=== PATIENT | male | born 1990 | race Caucasian/White ===

== ENCOUNTER 2022-03-06 10:31 | Outpatient (REF) | payer OTHER, SELFPAY ==
[2022-03-06 14:08] LABS: Alanine Aminotransferase 26 U/L (0-40); Albumin Level 4.9 g/dL (3.5-5.0); Alkaline Phosphatase 75 U/L (39-117); Anion Gap 14 (12-20); Aspartate Amino Transferase 21 U/L (5-37); Bilirubin Total 0.8 mg/dL (0.0-1.0); Blood Urea Nitrogen 13 mg/dL (9-16); Calcium 10.6 mg/dL (8.4-10.2); Carbon Dioxide 29 mmol/L (22-29); Chloride 100 mmol/L (96-108); Cholesterol 197 mg/dL; Estimated Glomerular Filt Rate > 60; Glucose Fasting 88 mg/dL (60-99); HDL Cholesterol 67 mg/dL; LDL Cholesterol Calculated 118 mg/dl; Potassium 4.3 mmol/L (3.3-5.1); Sodium 139 mmol/L (135-145); Total Protein 7.7 g/dL (6.5-8.0); Triglycerides 60 mg/dL
[2022-03-06 14:26] LABS: Appearance Urine Clear; Color Urine Yellow; Glucose Urine UA Negative (Negative); Leukocyte Esterase Urine Trace (Negative); Nitrite Urine Negative (Negative); UMIC TRIGGER UA YES; Urine Blood Negative (Negative); Urine Ketones Negative (Negative); Urine Protein Negative (Neg-Trace)
[2022-03-06 14:29] LABS: Bacteria Urine None Seen (None Seen); Hyaline Casts Urine 0-2 /LPF (0-2); RBC Urine 0-2 /HPF (0-2); Squamous Epithelial Cell Urine 0-2 /HPF (0-2); WBC Urine 0-5 /HPF (0-5)
[2022-03-06 14:32] LABS: TSH reflex Free T4 1.77 uIU/mL (0.32-4.0)
[2022-03-06 15:42] LABS: CT PCR NOT DETECTED (Not Detect.); NG PCR NOT DETECTED (Not Detect.)
[2022-03-07 07:16] LABS: Syphilis Screen Nonreactive (Nonreactive)
[2022-03-07 13:23] LABS: HBS Num1 9.31 mIU/mL (0-7.99); HBc Num1 0.07 S/CO (0.00-0.79); HBsAGNum1 0.27 S/CO (0.00-0.99); HIV AB/AG Nonreactive (Nonreactive); HIV Num 1 0.07 S/CO (0.00-0.99); Hepatitis B Core Antibody Nonreactive (Nonreactive); Hepatitis B Surface Antigen Negative (Negative); ~HepC Num1 0.09 S/CO (0.00-0.79); ~Hepatitis C Antibody Nonreactive (Nonreactive)
[2022-03-07 15:00] LABS: HBS Num2 7.97 mIU/mL (0-7.99); HBS Num3 7.92 mIU/mL (0-7.99); ~Hepatitis B Surface Antibody NONREACTIVE (Nonreactive)
== END 2022-03-06 10:32 | disposition home or self-care (01) ==
LOC: HO.WFDLDS 10:31
PROVIDERS: Visit Provider Family Medicine
DX: Z00.00 Encounter for general adult medical examination without abnormal findings (principal); Z11.3 Encounter for screening for infections with a predominantly sexual mode of transmission; Z11.4 Encounter for screening for human immunodeficiency virus [HIV]
CPT/HCPCS: 80053; 80061; 81001; 81003; 84443; 86704; 86706; 86780; 86803; 87340; 87389; 87491; 87591

== ENCOUNTER → 2022-06-03 11:53 | Outpatient (BNVA) | payer OTHER, SELFPAY | PROVIDERS: PCP Family Medicine; Visit Provider Physician Assistant | DX: K64.9 Unspecified hemorrhoids (principal); B36.9 Superficial mycosis, unspecified; K61.1 Rectal abscess | CPT/HCPCS: 99202 ==

== ENCOUNTER → 2022-06-13 08:55 | Outpatient (BNVA) | payer OTHER, SELFPAY | PROVIDERS: PCP Family Medicine; Referring Provider Physician Assistant; Visit Provider Surgery | DX: K60.2 Anal fissure, unspecified (principal) | CPT/HCPCS: 99202 ==

== ENCOUNTER → 2022-07-02 08:53 | Outpatient (BNVA) | payer OTHER, SELFPAY | PROVIDERS: PCP Family Medicine; Visit Provider Surgery | DX: K64.8 Other hemorrhoids (principal); K60.2 Anal fissure, unspecified | CPT/HCPCS: 99212 ==

== ENCOUNTER → 2022-07-15 09:57 | Outpatient (BNVA) | payer OTHER, SELFPAY | PROVIDERS: PCP Family Medicine; Visit Provider Physician Assistant | DX: K60.2 Anal fissure, unspecified (principal); K64.8 Other hemorrhoids | CPT/HCPCS: 99212 ==

== ENCOUNTER 2022-09-25 11:01 | Outpatient (REF) | payer OTHER, SELFPAY ==
[2022-10-03 19:19] LABS: HSV 1 IgM IFA Negative (Negative); HSV 2 IgM IFA Negative (Negative)
== END 2022-09-25 11:02 | disposition home or self-care (01) ==
LOC: HO.HMGCLDS 11:01
PROVIDERS: PCP Family Medicine; Visit Provider Physician Assistant
DX: Z20.2 Contact with and (suspected) exposure to infections with a predominantly sexual mode of transmission (principal)
CPT/HCPCS: 36415; 86695; 86696

== ENCOUNTER 2022-10-09 08:33 | Day surgery (SDC) | payer OTHER, SELFPAY ==
[2022-10-07 11:17] VITALS: BMI 25.1
--- NOTE | 2022-10-08 10:57 | HO.ANESPROP2 ---
HPI - Anesthesia Eval Consult details Narrative: 32yo M for Colonoscopy [facility] Active Problems Active Problems: All Active Problems (Updated 04/25/22 @ 11:34 by Portillo Jurado) Internal hemorrhoid (Acute) Fissure in ano (Acute) Cough (Acute) Adult general medical exam (Acute) Abscess of skin (Acute) Fungal infection of skin (Acute) Discomfort of left ear (Acute) Hemorrhoids (Acute) Anxiety (Acute) Sleep apnea (Acute) Inguinal hernia (Acute) Laboratory exam ordered as part of routine general medical examination (Acute) Past Medical History Medical History Bursitis of left shoulder Inguinal hernia Family History Family History Unknown No family history of colorectal cancer Surgical History Surgical History Status post rhinoplasty Social History Social History Household Members: Spouse and Children Household Members Other:: , 2 sons Housing: House Patient Tobacco Use Status: Never used Tobacco e-Cigarette/Vaping Use: Currently Using service: Yes Current occupational status: employed Current occupational exposures/hazards: No Cognitive needs: No Hearing needs: No Vision needs: No Meds Allergies Allergy/AdvReac Type Severity Reaction Status Date / Time No Known Allergies Allergy Verified 09/25/22 10:41 Home Medications Medication Instructions Recorded Confirmed Last Taken Type fluticasone propionate 50 1 spray intranasal DAILY 03/06/22 06/13/22 Unknown History mcg/actuation nasal spray,suspension (Flonase Allergy Relief) Exam Exam Date and Time: October 08, 2022 1057 Height,Weight and Vital Signs: Height 5 ft 10 in Weight 79.379 kg Assessment and Plan Assessment Anesthesia Assessment: Chart Reviewed
[2022-10-09 09:22] VITALS: BP 129/82; PULSE 88; RESP 15; TEMP 36.5; O2SAT 99
[2022-10-09] MEDS: Lactated Ringers 1,000 ML 100 ML IVCONT (09:34)
--- NOTE | 2022-10-09 09:34 | MHC.SHP ---
Pre-Procedural Eval Section A Date of Service: 10/09/22 Section B Chief Complaint: Anal fissure, unspecified Relevant Family History (Specify if Yes): No Relevant Social History: None Present Medications: see Short Stay Collaborative assessment Medical History: Significant History (Bursitis of left shoulder Inguinal hernia) History of Previous Operations: Relevant previous surgery/procedure and date(s) (nasal surgery) Allergies: Allergies Allergy/AdvReac Type Severity Reaction Status Date / Time No Known Allergies Allergy Verified 10/09/22 09:15 Review of Systems Sugical H&P ROS: Negative: Constitution, Cardiovascular, Respiratory, Neurological, Psychiatric, Hem-Onc, Allergic/Immunologic, Gastrointestinal, Genitourinary, Musculoskeletal, Integumentary, Endocrine and Eyes/Ears/Nose/Throat Exam Surgical H&P Exam: Normal: HEENT, Normal: Heart, Normal: Lungs, Normal: Extremities, Normal: Abdomen, Normal: Skin and Normal: Neurological Plan Diagnosis/Plan: Unchanged I have reviewed the history and physical and performed a pertinent physical examination on my patient. No changes have occurred unless specified. Time Spent With Patient Time: Total time managing care of this patient today ____ minutes.
--- NOTE | 2022-10-09 10:27 | W.PM.OPN ---
Operative Note Operative Note Date of Service: 10/09/22 Narrative: Operative Information Procedure Description: Colonoscopy Indication: hemorrhoids, rectal bleeding, abn bowel habit Anesthesia: MAC COLONOSCOPY Instrument: Olympus variable stiffness pediatric scope 190L Colonoscopy Monitoring: Vital signs and clinical assessment, continuous EKG monitoring, Pulse oximetry, Carbon Dioxide monitoring and blood pressure monitoring were done throughout the procedure. Colon withdrawal time was 22 minutes. Procedure: The patient was placed in the left lateral decubitis position and pre-procedure medications were administered. After a digital rectal examination of the ano-rectum, the video colonoscope was inserted into the rectum and advanced through the colon to the cecum/TI. The colonoscope was slowly withdrawn in a retrograde panoramic fashion and the colon mucosa was carefully examined including a retroflexed view of the rectum. Findings and interventions are described below. Procedure Difficulty: easy Findings: Terminal Ileum- mild erythema, bx taken Cecum:normal, bx taken Ascending Colon: normal, bx taken Transverse Colon -normal Descending Colon:normal Sigmoid Colon: normal Rectum: Retroflexion with medium sized internal hemorrhoids, grade I. One hemorrhoid column was more prominent and I placed one band over it. X 2 sessile polyps in the proximal rectum 5-8 mm removed with cold snare. Random rectum biopsies also taken. Anorectum - normal Colon preparation: [place] Bowel Preparation Scale Right colon; 2 Transverse colon: 2 Left colon; 2 (0 = Unprepared colon segment with mucosa not seen due to solid stool that cannot be cleared. 1 = Portion of mucosa of the colon segment seen, but other areas of the colon segment not well seen due to staining, residual stool and/or opaque liquid. 2 = Minor amount of residual staining, small fragments of stool and/or opaque liquid, but mucosa of colon segment seen well. 3 = Entire mucosa of colon segment seen well with no residual staining, small fragments of stool or opaque liquid) Impression and Post Procedure Diagnosis: polyps internal hemorrhoids Plan: High fiber diet leaflet Avoid straining at stool, epsom salts and sitz bath, anusol supps or cream Repeat Colonoscopy in 5-7 years if adenomatous polyps, otherwise colonoscopy at age 45 or earlier if clinically indicated Above findings were reviewed with the patient and relevant handouts were provided if indicated.
--- NOTE | 2022-10-09 10:38 | P.CONAN_ITS ---
[facility] Active Problems Active Problems: All Active Problems (Updated 04/25/22 @ 11:34 by Portillo Jurado) Laboratory exam ordered as part of routine general medical examination (Acute) Sleep apnea (Acute) Anxiety (Acute) Hemorrhoids (Acute) Discomfort of left ear (Acute) Fungal infection of skin (Acute) Abscess of skin (Acute) Adult general medical exam (Acute) Cough (Acute) Fissure in ano (Acute) Internal hemorrhoid (Acute) Inguinal hernia (Acute) Past Medical History Medical History Bursitis of left shoulder Inguinal hernia Family History Family History Unknown No family history of colorectal cancer Surgical History Surgical History Hx of oral surgery Hx of right inguinal hernia repair Status post rhinoplasty Social History Social History Household Members: Spouse and Children Household Members Other:: , 2 sons Housing: House Patient Tobacco Use Status: Current someday Tobacco user Tobacco use type: Smokeless Tobacco e-Cigarette/Vaping Use: Currently Using Use of substances other than those prescribed or required for medical reasons: No Are you DNR?: No Advance Directives: No Advance Directives Information Provided: Yes service: Yes Current occupational status: employed Current occupational exposures/hazards: No Cognitive needs: No Hearing needs: No Vision needs: No Meds Allergies Allergy/AdvReac Type Severity Reaction Status Date / Time No Known Allergies Allergy Verified 10/09/22 09:15 Active Medications: Current Medications Lactated Ringer's (Lr) 1,000 mls @ 100 mls/hr IVCONT .Q10H MIO Last Admin: 10/09/22 09:34 Dose: 100 mls/hr Home Medications Medication Instructions Recorded Confirmed Last Taken Type fluticasone propionate 50 1 spray intranasal DAILY 03/06/22 10/09/22 Unknown History mcg/actuation nasal spray,suspension (Flonase Allergy Relief) multivitamin 1 tab PO DAILY 10/09/22 10/09/22 Unknown History Exam Exam Date and Time: October 09, 2022 1038 Height,Weight and Vital Signs: Height 5 ft 10 in Weight 79.379 kg Last Vital Signs Temp 97.7 F 10/09/22 09:22 Pulse 88 10/09/22 09:22 Resp 15 10/09/22 09:22 BP 129/82 10/09/22 09:22 Pulse Ox 99 10/09/22 09:22 O2 Del Method Room Air 10/09/22 09:22 Airway Mallampati Class: II TM Dist: >3cm Neck ROM: Full Heart: RRR Lungs: CTA Assessment and Plan Assessment Anesthesia Assessment: Anesthesia Plan Discussed and Chart Reviewed Final Anesthetic Review NPO: Yes ASA Class: II Final Preanesthetic Review: Meds/Allgs Chart Reviewed, Consent Obtained/Reviewed and Anes Risks/Benef Reviewed Patient Risk: Low Procedure Risk: Low Anesthetic Plan Anesthetic Plan: MAC: Disposition: Standard PACU
[2022-10-09 11:00] VITALS: BP 101/59; PULSE 82; RESP 16; TEMP 36.3; O2SAT 98
[2022-10-09 11:15] VITALS: BP 118/71; PULSE 77; RESP 16; TEMP 36.6; O2SAT 100
== END 2022-10-09 11:58 | disposition home or self-care (01) ==
PROVIDERS: PCP Family Medicine; Visit Provider Internal Medicine Gastroenterology
PROC: 0DJD8ZZ Inspection of Lower Intestinal Tract, Via Natural or Artificial Opening Endoscopic (ICD-10-PCS; CPT 45378; principal; 2022-10-09 10:40)
DX: K62.5 Hemorrhage of anus and rectum (principal); R19.4 Change in bowel habit; K62.1 Rectal polyp; K64.0 First degree hemorrhoids; K60.2 Anal fissure, unspecified; F17.290 Nicotine dependence, other tobacco product, uncomplicated; Z79.51 Long term (current) use of inhaled steroids
CPT/HCPCS: 45385; 45380; 45398; 88305

== ENCOUNTER 2022-10-28 13:07 | Outpatient (AMB) | payer OTHER, SELFPAY ==
--- NOTE | 2022-10-28 13:11 | MHC.OFFVIS ---
Intake Vital Signs 10/28/22 13:12 Height 5 ft 10 in Weight 170 lb BMI 24.4 BP 116/64 Blood Pressure Location Lt brachial Position Sitting Pulse 76 Intake Visit Reasons: S/p colon-Gary Intake Note: Patient follow up for Colonoscopy results. Patient denies any GI issues. [employer] Senior [employer] Required: No Accompanied by: Self / Same As Patient Allergies No Known Allergies Allergy (Verified 10/28/22 13:11) Medication List - Last Reconciled 10/28/22 by Gloria Linares PA-C albuterol sulfate 90 mcg/actuation 2 puffs inhalation Q6H PRN fluticasone propionate 50 mcg/actuation (Flonase Allergy Relief) 1 spray intranasal DAILY hydrocortisone 2.5% (Proctozone-HC) 1 appl RI BEDTIME PRN multivitamin 1 tab PO DAILY HPI HPI Comments History of Present Illness Details A 32-year-old male follows up after recent colonoscopy with polypectomy and hemorrhoidal banding with Dr. Gary Tolerated procedure well-was very happy hemorrhoid was banded Noticed a small amount of rectal bleeding-passing of small month blood several days after procedure however nothing further, no abdominal pain no rectal pain No nausea, vomiting, hematemesis, hematochezia fever chills PFSH Medical History (Updated 10/28/22 @ 13:53 by Gloria Linares PA-C) Bursitis of left shoulder Inguinal hernia Surgical History Hx of colonoscopy Hx of oral surgery Hx of right inguinal hernia repair Status post rhinoplasty Family History Unknown No family history of colorectal cancer Social History Household Members: Spouse and Children Household Members Other:: , 2 sons Housing: House Patient Tobacco Use Status: Current someday Tobacco user Tobacco use type: Smokeless Tobacco e-Cigarette/Vaping Use: Currently Using service: Yes Current occupational status: employed Current occupational exposures/hazards: No Cognitive needs: No Hearing needs: No Vision needs: No Review of Systems Const All systems reviewed & are unremarkable except as noted in HPI and below GI Denies abdominal pain, Denies change in bowel habits and Reports other (1 episode small amount rectal bleeding days after colonoscopy) Physical Exam Vital Signs: Last Vital Signs Pulse 76 10/28/22 13:12 BP 116/64 10/28/22 13:12 BMI result Body Mass Index 24.4 Const General: cooperative, healthy appearing and comfortable Orientation/consciousness: patient oriented x3 Limitations: no limitations Neuro General: patient oriented x3 Psych Appearance: grossly normal and well kempt Mental Status: mental status grossly normal Speech and movement: Normal speech and movement present Affect: normal affect Thought process: Normal thought process present Thought content: Normal thought content present Insight: Good insight present (Psych) Judgement: Good judgement present (Psych) Results Reviewed Results Reviewed: indings: Terminal Ileum- mild erythema, bx taken Cecum:normal, bx taken Ascending Colon: normal, bx taken Transverse Colon -normal Descending Colon:normal Sigmoid Colon:? normal Rectum: Retroflexion with medium sized internal hemorrhoids, grade I. One hemorrhoid column was more prominent and I placed one band over it. X 2 sessile polyps in the proximal rectum 5-8 mm removed with cold snare. Random rectum biopsies also taken. Anorectum - normal Colon preparation: [place] Bowel Preparation Scale Right colon; 2 Transverse colon: 2 Left colon; 2 (0 = Unprepared colon segment with mucosa not seen due to solid stool that cannot be cleared. 1 = Portion of mucosa of the colon segment seen, but other areas of the colon segment not well seen due to staining, residual stool and/or opaque liquid. 2 = Minor amount of residual staining, small fragments of stool and/or opaque liquid, but mucosa of colon segment seen well. 3 = Entire mucosa of colon segment seen well with no residual staining, small fragments of stool or opaque liquid) Impression and Post Procedure Diagnosis: polyps internal hemorrhoids Plan: High fiber diet leaflet Avoid straining at stool, epsom salts and sitz bath, anusol supps or cream Repeat Colonoscopy in 5-7 years if adenomatous polyps, otherwise colonoscopy at age 45 or earlier if clinically indicated Above findings were reviewed with the patient and relevant handouts were provided if indicated. Name:Ezra Sánchez Age/Sex: 32/M Attending: Elvin Gary MD : 1990 Submitted by: Elvin Gary MD Copies to: Benoit Ruth MD MR #: [id number] ? Status: DEP SD Collected: 10/09/22 Location: [facility] Received: 10/09/22 Diagnosis A.? Terminal ileum, biopsy:? Ileal mucosa with no specific change.? B.? Colon, right, biopsy:? Colonic mucosa (2 pieces) with no specific change, and ileal mucosa (1 piece) with no specific change. C.? Colon, proximal rectal, polyps:? Hyperplastic polyps, two. D.? Colon, rectum, biopsy:? Colonic mucosa with no specific change. Assessment & Plan Assessment & Plan (1) Hemorrhoids: Comment: Banded-likely episode rectal bleeding banded hemorrhoid expelled-has had nothing for Code(s): K64.9 - Unspecified hemorrhoids Plan: Maintain high-fiber diet (2) Hyperplastic colon polyp: Code(s): K63.5 - Polyp of colon Plan: Benign polyps asymptomatic colonoscopy age 44 (3) Rectal bleeding: Comment: Likely banded hemorrhoid Code(s): K62.5 - Hemorrhage of anus and rectum Plan: Likely banded hemorrhoids Patient Instructions: Very pleasant 32-year-old male follows up after recent colonoscopy and polypectomy, with hemorrhoidal banding Reviewed procedure report and pathology He has no further GI complaints. Her recommend screening colonoscopy age 45 sooner if indicated Encouraged to call with questions or concerns Appreciate the opportunity assist in care this pleasant Gent Coding Level of Care Code Est Pt Level 3 (91618) Diagnoses Hemorrhoids K64.9 Hyperplastic colon polyp K63.5 Rectal bleeding K62.5 Time Spent (min) 20
[2022-10-28 13:12] VITALS: BP 116/64; PULSE 76; BMI 24.4
== END 2022-10-28 13:57 | disposition home or self-care (01) ==
PROVIDERS: Visit Provider Physician Assistant
DX: K64.9 Unspecified hemorrhoids (principal); K63.5 Polyp of colon; K62.5 Hemorrhage of anus and rectum
CPT/HCPCS: 99213

== ENCOUNTER → 2022-10-28 13:07 | Outpatient (BNVA) | payer OTHER, SELFPAY | PROVIDERS: Visit Provider Physician Assistant | DX: K63.5 Polyp of colon (principal); K64.9 Unspecified hemorrhoids; K62.5 Hemorrhage of anus and rectum; Z98.890 Other specified postprocedural states | CPT/HCPCS: 99212 ==

== ENCOUNTER 2023-02-11 11:13 | Outpatient (AMB) | payer OTHER, SELFPAY ==
[2023-02-11 11:22] VITALS: BP 118/66; PULSE 87; RESP 13; TEMP 36.6; O2SAT 99; BMI 23.8
--- NOTE | 2023-02-11 11:22 | A.OFFPC_ITS ---
Vital Signs 02/11/23 11:22 Height 5 ft 10 in Weight 166 lb BMI 23.8 BP 118/66 Blood Pressure Location Lt brachial Position Sitting Respiration 13 Pulse 87 Pulse Source Pulse Oximeter Temp 97.8 F Temp Source Temporal Artery Scan Pulse Oximetry (%) 99 Oxygen Delivery Method Room Air Intake Visit Reasons: Discuss Dermatology referral, cyst on back of neck Intake Note: Patient states that he believes the cyst on back of his neck was an ingrown hair that was irritated and turned into a cyst. Patient states that it fluctuates and right now it is a small but can and william get irritated again and become huge. Patient states he has has one on his love handle that had to be removed by doctors office. Patient states that he would also like to discuss sexual performance issues. Patient states that it takes a long time to get across the finish line when in a sexual act. Patient believes it his anxiety of getting a divorce. 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 Accompanied by: Self / Same As Patient Allergies No Known Allergies Allergy (Verified 02/11/23 11:47) Medication List - Last Reconciled 02/11/23 by Ozzie Bermudez CNP albuterol sulfate 90 mcg/actuation 2 puffs inhalation Q6H PRN fluticasone propionate 50 mcg/actuation (Flonase Allergy Relief) 1 spray intranasal DAILY hydrocortisone 2.5% (Proctozone-HC) 1 appl HI BEDTIME PRN multivitamin 1 tab PO DAILY Tobacco use date assessed: 02/11/23 Dental Screening Dental Screen Date: 02/11/23 Did you have a dental visit in the last 12 months?: Yes Did you have a dental problem in the last 6 months where you did not have access to dental care?: No Was dental information given to patient?: Patient has dentist HPI HPI Comments History of Present Illness Details 32-year-old male presents with complaint s of a painless cyst to the back of his neck. He notes there was an ingrown hair to the area which become irritated and transformed to a cyst. He notes that the cyst changes size, from small to large. He notes that the cyst has been present, on and off, for the past 2 years. Denies pain, redness, swelling, fever, fatigue, or weakness. 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 Lawrence Hightower, Virginia Martinez, Calin Kellogg and colleagues, with an educational ganesh from [employer]. Review of Systems Const Details: Const Denies chills, Denies fatigue, Denies fever(s), Denies headache(s) and Denies weakness ENT Denies dizziness and Denies headache(s) Card Denies chest pain, Denies lightheadedness, Denies dyspnea and Denies other (Palpitations) Resp Denies cough, Denies dyspnea, Denies wheezing and Denies other ( shortness of breath) GI Denies abdominal pain, Denies melena, Denies hematochezia, Denies change in bowel habits, Denies dyspepsia and Denies nausea Denies hematuria and Denies dysuria Musc Denies abnormal gait, Denies myalgias, Denies arthralgias, Denies numbness and Denies tingling Skin/Breast Reports as per HPI Neuro Denies abnormal gait, Denies dizziness, Denies headache(s), Denies memory loss, Denies numbness, Denies Sensory deficit (Neuro), Denies tingling and Denies weakness Psych Denies anxiety, Denies depression, Denies memory loss Endo Denies cold intolerance, Denies fatigue, Denies heat intolerance, Denies polydipsia and Denies polyuria Aller/Immun Denies wheezing Physical exam (Primary Care) Vital Signs: Last Vital Signs Temp 97.8 F 02/11/23 11:22 Pulse 87 02/11/23 11:22 Resp 13 02/11/23 11:22 BP 118/66 02/11/23 11:22 Pulse Ox 99 02/11/23 11:22 Oxygen Delivery Method Room Air 02/11/23 11:22 BMI result Body Mass Index 23.8 Tobacco/Smoking Status: Tobacco use Status Tobacco use date assessed 02/11/23 02/11/23 11:31 Patient Tobacco Use Status Current someday Tobacco 02/11/23 11:31 Tobacco use type Smokeless Tobacco 02/11/23 11:31 e-Cigarette/Vaping Use Currently Using 02/11/23 11:31 Thrive Assessment: Date of Thrive Assessment Date Thrive assessed 04/25/22 02/11/23 11:31 Const Other: General: no acute distress and well developed Nutritional Appearance: well nourished Orientation/consciousness: patient oriented x3 HENMT Head: Yes normocephalic and Yes atraumatic Eyes General: appearance normal, both eyes and all related structures Pupils: Equal, round and reactive pupils present EOM: EOMs intact bilaterally Resp Effort & Inspection: normal respiratory effort Auscultation: clear to auscultation bilaterally Cardio Rate: regular rate Rhythm: regular rhythm Heart sounds: S1 normal heart sound present, S2 normal heart sound present, no gallops, no murmurs and no rubs GI Palpation (GI): No Abdominal aortic bruit present, Soft to palpation, nontender, No hepatosplenomegaly present and No Rebound tenderness present Auscultation: normal bowel sounds General: Yes no CVA tenderness Back/Spine/Pelvis Back: no CVA tenderness Cervical Spine: cervical ROM normal and No Cervical spine tenderness Thoracic/Lumbar Spine: thoraco-lumbar ROM normal, No pain with thoraco-lumbar ROM, No thoracic spinal tenderness and No lumbar spinal tenderness Extrem General: Yes normal to inspection, No edema and No calf tenderness Skin General: warm and dry. Normal skin color. Normal skin turgor Lesions: Pea-sized, painless lesion palpated on the left side of his posterior neck. No erythema, edema, trauma/injury, or overt signs of infection noted Rashes: no rashes Trauma: no lacerations or abrasions Wounds: no wounds Nails: normal Neuro General: patient oriented x3, gait normal and no focal neuro deficit Cranial nerves: Yes Equal, round and reactive pupils present Cognition (Neuro): normal cognition Gait exam (Neuro): Normal gait present Sensory Exam: No Sensory deficit (Neuro) Psych Appearance: grossly normal Affect: normal affect Attitude: cooperative Thought process: Normal thought process present Assessment and Plan Assessment & Plan (1) Epidermoid cyst of neck: Code(s): L72.0 - Epidermal cyst Plan: Presents with complaints of a painless cyst to his neck which has been present for the past 2 years. The cyst resulted from an ingrown hair. Pea-sized, painless lesion palpated on the left side of his posterior neck. No erythema, edema, trauma/injury, or overt signs of infection noted May apply warm compresses when expressed any acute symptoms Referred to dermatology The last time he was seen by his PCP was in April 2022. Advised to follow-up for health maintenance Follow-up with new or worsening symptoms Verbalized understanding and agreed with treatment plan. Orders: Referrals Dermatology Referral L72.0 - Epidermal cyst Coding Level of Care Code Est Pt Level 3 (20556) Diagnoses Epidermoid cyst of neck L72.0
== END 2023-02-11 12:00 | disposition home or self-care (01) ==
PROVIDERS: PCP Family Medicine; Visit Provider Nurse Practitioner Family
DX: L72.0 Epidermal cyst (principal)
CPT/HCPCS: 99213

== ENCOUNTER 2023-03-20 14:59 | Outpatient (AMB) | payer OTHER, SELFPAY ==
--- NOTE | 2023-03-20 15:04 | MHC.PC.OV ---
Vital Signs 03/20/23 15:05 Height 5 ft 10 in Weight 167 lb BMI 24.0 BP 108/60 Blood Pressure Location Lt brachial Position Sitting Pulse 91 Pulse Oximetry (%) 98 Oxygen Delivery Method Room Air Intake Visit Reasons: hormone concern discussion Intake Note: Patient would like to discuss male performance issues today. Allergies No Known Allergies Allergy (Verified 03/20/23 15:06) Tobacco use date assessed: 03/20/23 HPI hormone concern discussion HPI Details 32 y/o male presents today with hormonal concerns. Pt reports concerns about performance anxiety regarding his sexual relationships. He notes he is able to achieve an erection alone but expresses concerns about difficulty doing so when with a partner. 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 Lawrence Hightower, Virginia Martinez, Calin Kellogg and colleagues, with an educational ganesh from [employer]. Review of Systems Const Denies chills, Denies fatigue, Denies fever(s), Denies headache(s) and Denies weakness ENT Denies dizziness and Denies headache(s) Card Denies chest pain, Denies lightheadedness, Denies dyspnea and Denies other (Palpitations) Resp Denies cough, Denies dyspnea, Denies wheezing and Denies other ( shortness of breath) Musc Denies numbness and Denies tingling Neuro Denies dizziness, Denies headache(s), Denies numbness, Denies tingling, Denies paresthesias and Denies weakness Psych Denies anxiety and Denies depression Endo Denies fatigue Aller/Immun Denies wheezing Physical exam (Primary Care) Vital Signs: Last Vital Signs Pulse 91 03/20/23 15:05 BP 108/60 03/20/23 15:05 Pulse Ox 98 03/20/23 15:05 Oxygen Delivery Method Room Air 03/20/23 15:05 BMI result Body Mass Index 24.0 Tobacco/Smoking Status: Tobacco use Status Tobacco use date assessed 03/20/23 03/20/23 15:08 Patient Tobacco Use Status Never used Tobacco 03/20/23 15:08 Tobacco use type Smokeless Tobacco 03/20/23 15:08 e-Cigarette/Vaping Use Currently Using 03/20/23 15:08 Thrive Assessment: Date of Thrive Assessment Date Thrive assessed 04/25/22 03/20/23 15:08 Const General: no acute distress and well developed Nutritional Appearance: well nourished Orientation/consciousness: patient oriented x3 [facility] Head: Yes normocephalic and Yes atraumatic Eyes General: appearance normal, both eyes and all related structures Pupils: Equal, round and reactive pupils present EOM: EOMs intact bilaterally Resp Effort & Inspection: normal respiratory effort Auscultation: clear to auscultation bilaterally Cardio Rate: regular rate Rhythm: regular rhythm Heart sounds: S1 normal heart sound present, S2 normal heart sound present, no gallops, no murmurs and no rubs Neuro General: patient oriented x3 and gait normal Cranial nerves: Yes Equal, round and reactive pupils present Psych Affect: normal affect Assessment and Plan Assessment & Plan (1) Difficulty attaining erection: Code(s): N52.9 - Male erectile dysfunction, unspecified Plan: Patient?is?having sexual?performance?issues?which?seem?to?be?intermittent?and?associated?with?relationships?rather?than purely?physiologic?as?he?notes?that?he?has?less?difficulty?when?he?is?by?himself. May?have?a?component?of?performance?anxiety. Will?check?labs?to?rule?out?any?organic?cause. Recommended?a?therapist Recommended?plenty?of?sleep?and?stress?reduction We?can?follow-up?on?his?lab?work.??If?there?is?nothing?revealing?in?the?labs, we?can?discuss?a?referral?to?urology?which?may?be?indicated?by?abnormal?labs?as?well. Meantime?we?can?use?tadalafil?which?he?notes?has?been?helping. Orders: Orders Comprehensive [employer]. Panel Fast Today Z00.00 - Encounter for general adult medical examination without abnormal findings TSH reflex Free T4 Today Z00.00 - Encounter for general adult medical examination without abnormal findings UA and rflx microscopic Today Z00.00 - Encounter for general adult medical examination without abnormal findings Lipid Panel Today Z00.00 - Encounter for general adult medical examination without abnormal findings Microalbumin, Random (w Creat) Today I10 - Essential (primary) hypertension Testosterone, Free/Total Today N52.9 - Male erectile dysfunction, unspecified Medications: New tadalafil administer approximately 30min before sexual activity; do not use more than 1 dose per 24hrs 20 mg PO DAILY 30 days PRN 20 tabs 2RF sexual activity Coding Level of Care Code Est Pt Level 3 (22220) Diagnoses Difficulty attaining erection N52.9
[2023-03-20 15:05] VITALS: BP 108/60; PULSE 91; O2SAT 98; BMI 24.0
== END 2023-03-20 15:45 ==
PROVIDERS: PCP Family Medicine; Visit Provider Family Medicine
DX: N52.9 Male erectile dysfunction, unspecified (principal)
CPT/HCPCS: 99213

== ENCOUNTER 2023-03-21 08:07 | Outpatient (REF) | payer OTHER, SELFPAY ==
[2023-03-21 09:59] LABS: Alanine Aminotransferase 17 U/L (0-40); Albumin Level 4.2 g/dL (3.5-5.0); Alkaline Phosphatase 57 U/L (39-117); Anion Gap 13 (12-20); Aspartate Amino Transferase 19 U/L (5-37); Bilirubin Total 0.6 mg/dL (0.0-1.0); Blood Urea Nitrogen 10 mg/dL (9-16); Calcium 9.4 mg/dL (8.4-10.2); Carbon Dioxide 25 mmol/L (22-29); Chloride 106 mmol/L (96-108); Cholesterol 160 mg/dL (<200); Estimated Glomerular Filt Rate > 60; Glucose Fasting 95 mg/dL (60-99); HDL Cholesterol 59 mg/dL (>40); LDL Cholesterol Calculated 92 mg/dL (<100); Sodium 140 mmol/L (135-145); Total Protein 6.7 g/dL (6.5-8.0); Triglycerides 46 mg/dL (<150)
[2023-03-21 10:05] LABS: TSH reflex Free T4 1.63 uIU/mL (0.32-4.0)
[2023-03-21 10:25] LABS: Appearance Urine Clear; Color Urine Yellow; Glucose Urine UA Negative (Negative); Leukocyte Esterase Urine Negative (Negative); Nitrite Urine Negative (Negative); Urine Blood Negative (Negative); Urine Ketones Negative (Negative); Urine Protein Negative (Neg-Trace)
[2023-03-21 10:45] LABS: Creatinine Urine 152.41 mg/dL; Microalbumin Urine < 5.0 mg/L
[2023-03-25 19:03] LABS: Testosterone, Free 137.2 pg/mL (35.0-155.0); Testosterone, Total 618 ng/dL (250-1100)
== END 2023-03-21 08:08 | disposition home or self-care (01) ==
LOC: HO.LAB 08:07
PROVIDERS: PCP Family Medicine; Visit Provider Family Medicine
DX: Z00.00 Encounter for general adult medical examination without abnormal findings (principal); N52.9 Male erectile dysfunction, unspecified; I10 Essential (primary) hypertension
CPT/HCPCS: 36415; 80053; 80061; 81003; 82570; 84402; 84403; 84443

== ENCOUNTER 2023-04-27 08:52 | Outpatient (AMB) | payer OTHER, SELFPAY ==
[2023-04-27 08:55] VITALS: BP 108/62; PULSE 91; RESP 13; O2SAT 98; BMI 24.4
--- NOTE | 2023-04-27 08:55 | MHC.PC.OV ---
Vital Signs 04/27/23 08:55 Height 5 ft 10 in Weight 170 lb BMI 24.4 BP 108/62 Blood Pressure Location Lt brachial Position Sitting Respiration 13 Pulse 91 Pulse Source Pulse Oximeter Pulse Oximetry (%) 98 Oxygen Delivery Method Room Air Intake Visit Reasons: Extended exam with f/u labs and health maintenance Intake Note: Patient reports he is here for his physical and he has some paperwork to be filled out for todays physical. Patient reports he has a recurrent pain in the left ear. Patient reports he has a clicking in his jaw and wonders is the two are related. Patient reports he has experienced a heartburn feeling, chest pain, and sometimes feels like he has an irregular heartbeat. 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 Labs were drawn 03/21/23. Reviewed labs with pt. Triglycerides 46. TC 160. LDL 92. HDL 59. His labs were fine. Patient reports he has a recurrent pain in the left ear. Patient reports he has a clicking in his jaw and wonders if the two are related. Patient reports he has experienced a heartburn feeling, chest pain, and sometimes feels like he has an irregular heartbeat. Pt notes pain comes and goes at least once a week. Pt notes palpitations have been ongoing for a few years. He notes he sometimes experiences it when he lays on the bed. He does note ongoing stressors. HPI Comments History of Present Illness Details Documentation assistance for Benoit Ruth MD, was provided by Portillo Jurado, Nail Expert on 04/27/2023 9:33 AM EST. I, Dr. Ruth, have read, observed, and verified documentation. 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 Lawrence Hightower, Virginia Martinez, Calin Kellogg and colleagues, with an educational ganesh from [employer]. Review of Systems Const Denies chills, Denies fatigue, Denies fever(s), Denies headache(s) and Denies weakness Eyes Denies change in vision ENT Details: L ear pain Denies dizziness, Denies headache(s), Denies hearing loss, Denies nasal congestion, Denies sinus pain, Denies sinus pressure and Denies sore throat Card Denies chest pain, Denies lightheadedness, Denies dyspnea and Denies other (palpitations) Resp Denies cough, Denies dyspnea and Denies wheezing GI Denies abdominal pain, Denies melena, Denies hematochezia, Denies change in bowel habits, Denies dyspepsia and Denies nausea Denies hematuria and Denies dysuria Musc Denies abnormal gait, Denies myalgias, Denies arthralgias, Denies numbness and Denies tingling Skin/Breast Denies rash, Denies unusual bruising and Denies wounds Neuro Denies abnormal gait, Denies dizziness, Denies headache(s), Denies memory loss, Denies numbness, Denies Sensory deficit (Neuro), Denies tingling and Denies weakness Psych Denies anxiety, Denies depression and Denies memory loss Endo Denies cold intolerance, Denies fatigue, Denies heat intolerance, Denies polydipsia and Denies polyuria Rai/Lymph Denies easy bleeding and Denies easy bruising Aller/Immun Denies wheezing Physical exam (Primary Care) Vital Signs: Last Vital Signs Pulse 91 04/27/23 08:55 Resp 13 04/27/23 08:55 BP 108/62 04/27/23 08:55 Pulse Ox 98 04/27/23 08:55 Oxygen Delivery Method Room Air 04/27/23 08:55 BMI result Body Mass Index 24.4 Tobacco/Smoking Status: Tobacco use Status Tobacco use date assessed 03/20/23 04/27/23 09:04 Patient Tobacco Use Status Never used Tobacco 04/27/23 09:04 Tobacco use type Smokeless Tobacco 04/27/23 09:04 e-Cigarette/Vaping Use Currently Using 04/27/23 09:04 Thrive Assessment: Date of Thrive Assessment Date Thrive assessed 04/25/22 04/27/23 09:04 Const General: no acute distress, well developed, alert and awake Nutritional Appearance: well nourished Orientation/consciousness: patient oriented x3 HENMT Head: Yes normocephalic and Yes atraumatic Ears: hearing grossly normal bilaterally and TM's normal bilaterally General nose exam: Normal external nose present and Normal nares present Mouth: Normal oral and palatal mucosa present and moist mucous membranes Teeth and gingiva: dentition normal Throat: Yes posterior oropharynx normal Eyes General: appearance normal, both eyes and all related structures Pupils: Equal, round and reactive pupils present and Pupil accommodation reflex normal EOM: EOMs intact bilaterally Neck Neck: Yes normal visual inspection, Yes no lymphadenopathy and Yes trachea midline Thyroid: Thyroid normal Carotids: no bruits Lymphatic: no lymphadenopathy noted Chest Chest palpation & inspection: normal inspection of the chest Resp Effort & Inspection: normal respiratory effort Auscultation: clear to auscultation bilaterally Cardio Rate: regular rate Rhythm: regular rhythm Heart sounds: S1 normal heart sound present, S2 normal heart sound present, no gallops, no murmurs and no rubs Bruits: no abdominal aortic bruits and no carotid bruits GI Palpation (GI): No Abdominal aortic bruit present, Soft to palpation, nontender, No hepatosplenomegaly present and No Rebound tenderness present Auscultation: normal bowel sounds General: Yes no CVA tenderness Back/Spine/Pelvis Back: no CVA tenderness Cervical Spine: cervical ROM normal and No Cervical spine tenderness Thoracic/Lumbar Spine: thoraco-lumbar ROM normal, No pain with thoraco-lumbar ROM, No thoracic spinal tenderness and No lumbar spinal tenderness Skin Lesions: no lesions Rashes: no rashes Trauma: no lacerations or abrasions Wounds: no wounds Nails: normal Neuro General: patient oriented x3 Cranial nerves: Yes Equal, round and reactive pupils present Cognition (Neuro): normal cognition Gait exam (Neuro): Normal gait present Motor exam (neuro): 5/5 motor strength present throughout Sensory Exam: No Sensory deficit (Neuro) Deep tendon reflexes (DTR's): Right patellar reflex intensity grade: 2+ and Left patellar reflex intensity grade: 2+ Extrem General: Yes normal to inspection and No edema Psych Appearance: grossly normal Affect: normal affect Attitude: cooperative Thought process: Normal thought process present Office Procedures EKG [id number], Complete Assessment and Plan Assessment & Plan (1) Adult general medical exam: Code(s): Z00.00 - Encounter for general adult medical examination without abnormal findings Plan: 32-year-old?male?presents?for?complete?physical?exam (2) Palpitations: Code(s): R00.2 - Palpitations Plan: Intermittent?palpitations,?particularly?while?lying?in?bed EKG?shows?normal?sinus?rhythm?with?normal?axis?and?no?hypertrophy.??Does?show?nonspecific?ST-T-wave?changes. Will?refer?patient?to?Cardiology?to?follow-up?on?palpitations (3) Difficulty attaining erection: Code(s): N52.9 - Male erectile dysfunction, unspecified Plan: Had?tried?sildenafil?and?tadalafil?which?helped. Patient?would?like?or?options?so?I?am?referring?him?to?Urology (4) Hemorrhoids: Code(s): K64.9 - Unspecified hemorrhoids Plan: He?can?follow-up?with?his?central service tech?as?recommended (5) Left ear pain: Code(s): H92.02 - Otalgia, left ear Plan: Intermittent?left?ear?pain?which?comes?and?goes?spontaneously. Has?some?TMJ Possible?trigeminal?nerve?neuralgia He?would?like?to?see?ENT - referred (6) Screening for colon cancer: Code(s): Z12.11 - Encounter for screening for malignant neoplasm of colon Plan: No?polyps He?can?follow-up?with?GI?as?recommended (7) TMJ (dislocation of temporomandibular joint): Code(s): S03.00XA - Dislocation of jaw, unspecified side, initial encounter Plan: Clicking?bilateral?TMJs left?worse?than?right Referred?to?ENT Orders: Orders AMB EKG-In Office Today R00.2 - Palpitations Referrals Ear/Nose/Throat Referral H92.02 - Otalgia, left ear, S03.00XA - Dislocation of jaw, unspecified side, initial encounter Cardiology Referral R00.2 - Palpitations Cardiology Referral R00.2 - Palpitations Urology Referral N52.9 - Male erectile dysfunction, unspecified Coding Level of Care Code Est Pt Level 3 (10846) Est Pt Prev Care 18-39y(02317) Diagnoses Adult general medical exam Z00.00 Palpitations R00.2 Difficulty attaining erection N52.9 Hemorrhoids K64.9 Left ear pain H92.02 Screening for colon cancer Z12.11 TMJ (dislocation of temporomandibular joint) S03.00XA CPT Codes EKG - CPT: 54000-[id number], Complete ([id number])
== END 2023-04-27 10:09 | disposition home or self-care (01) ==
PROVIDERS: Visit Provider Family Medicine
DX: Z00.00 Encounter for general adult medical examination without abnormal findings (principal); R00.2 Palpitations; N52.9 Male erectile dysfunction, unspecified; K64.9 Unspecified hemorrhoids; H92.02 Otalgia, left ear; Z12.11 Encounter for screening for malignant neoplasm of colon; S03.00XA Dislocation of jaw, unspecified side, initial encounter
CPT/HCPCS: 93000; 99395

== ENCOUNTER 2023-06-10 12:51 | Outpatient (AMB) | payer OTHER, SELFPAY ==
--- NOTE | 2023-06-10 13:00 | A.OFFVIS_ITS ---
Intake Intake Visit Reasons: Erectile Dysfunction Intake Note: New Patient presents for initial visit for Erectile Dysfunction Urology Medications: Tadalafil Blood thinner: None Patient stated he cut the tadalafil in half., and take only half. Vessel Manager Required: No Accompanied by: Self / Same As Patient Allergies No Known Allergies Allergy (Verified 06/10/23 19:30) Medication List - Last Reconciled 06/10/23 by ZANDER Abebe albuterol sulfate 90 mcg/actuation 2 puffs inhalation Q6H PRN fluticasone propionate 50 mcg/actuation (Flonase Allergy Relief) 1 spray intranasal DAILY PRN hydrocortisone 2.5% (Proctozone-HC) 1 appl ND BEDTIME PRN multivitamin 1 tab PO DAILY tadalafil 20 mg PO DAILY PRN 30 days HPI HPI Comments History of Present Illness Details Ezra is a very pleasant 33-year-old male patient of Dr. Ruth. He has a past medical history of bursitis of left shoulder and inguinal hernia. He presents to the office today as a new patient for erectile dysfunction. In discussion with the patient today reports following up with his PCP and discussing his intermittent issues with erectile dysfunction at which time he was started on 20 mg of tadalafil daily. He reports recently coming out of a 10 year marriage and is undergoing divorce. He reports noting no issues with erectile dysfunction while . However, prior to marriage in his younger years as a teenager he did have episodes of erectile dysfunction and feels this has made him at times anxious when needing to perform. He reports currently being in a relationship and partner does not feel there is any issues however he feels at times he does continue to experience issues maintaining erec tions while having intercourse. He does report morning erections. When asked he does report feeling Cialis has been helpful. In review of patient's chart it appears testosterone was ordered and these results were reviewed with the patient today. 04/11--testosterone 618 04/11--free testosterone 137.2 He otherwise denies any bothersome urinary issues. He denies any previous surgical history within the area and or trauma to this area. Discussed at length lifestyle modifications to assist with episodes of erectile dysfunction. In office urinalysis results reviewed with the patient today. He otherwise offers no other issues or concerns at this time. 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 Current occupational exposures/hazards: No Cognitive needs: No Hearing needs: No Vision needs: No Review of Systems Const All systems reviewed & are unremarkable except as noted in HPI and below Physical Exam Const General: cooperative, healthy appearing, comfortable, no acute distress, well developed, alert and awake Orientation/consciousness: patient oriented x3 Limitations: no limitations HEENT Head: Yes normal to inspection, Yes normocephalic and Yes atraumatic Ears: hearing grossly normal bilaterally Eyes General: appearance normal, both eyes and all related structures Neck Neck: Yes normal visual inspection and Yes trachea midline Chest Chest palpation & inspection: normal inspection of the chest Resp Effort & Inspection: normal respiratory effort and able to speak in complete sentences Cardio Rate: regular rate GI Inspection: Yes normal to inspection General: Yes no CVA tenderness Back/Spine/Pelvis Back: no CVA tenderness Skin General skin exam: no rashes or lesions noted Neuro General: patient oriented x3 Extrem General: Yes normal to inspection Psych Appearance: grossly normal and well kempt Mental Status: mental status grossly normal Speech and movement: Normal speech and movement present and Clear speech present Affect: normal affect Attitude: cooperative Thought process: Normal thought process present Thought content: Normal thought content present Insight: Fair insight present (Psych) Judgement: Fair judgement present (Psych) Results AMB Urinalysis, Automated UA Leukoctes 15 Will/uL [facility] on 06/10/23 13:14 UA Nitrite Negative Last Edit by [facility] on 06/10/23 13: 14 UA Urobilinogen 0.2 mg/dL Last Edit by [facility] on 4 13:14 UA Protein 15 mg/dL Last Edit by [facility] on 06/10/23 13:1 4 UA pH 6.0 Last Edit by [facility] on 06/10/23 13:14 UA Blood 0 Alex/uL Last Edit by [facility] on 06/10/23 13:14 UA Specific [place] 1.025 Last Edit by [facility] on 13:14 UA Ketone Positive Last Edit [facility] on 06/10/23 13:1 4 40mg/dl [facility] 06/10/23 13:14 UA Bilirubin 0 mg/dL Last Edit by [facility] on 06/10/23 13: 14 UA Glucose 0 mg/dL Last Edit by [facility] on 06/10/23 13:14 Results Reviewed Results Reviewed: Laboratory Last Values Urine pH (Auto) 6.0 06/10/23 13:04 Specific [place] (Auto) 1.025 06/10/23 13:04 Urine Protein (Auto) 15 mg/dL 06/10/23 13:04 Glucose (UA)(Auto) 0 mg/dL 06/10/23 13:04 Urine Ketones (Auto) Positive 06/10/23 13:04 Urine Blood (Auto) 0 Alex/uL 06/10/23 13:04 Urine Nitrite (Auto) Negative 06/10/23 13:04 Urine Bilirubin (Auto) 0 mg/dL 06/10/23 13:04 Urine Urobilinogen (Auto) 0.2 mg/dL 06/10/23 13:04 Leukocyte Esterase (Auto) 15 Will/uL 06/10/23 13:04 Assessment & Plan Assessment & Plan (1) Erectile dysfunction: Code(s): N52.9 - Male erectile dysfunction, unspecified Plan In office urinalysis results reviewed with the patient today; as noted above. Discussed at length potential causes for erectile dysfunction. Discussed lifestyle modifications to assist with erectile dysfunction. Discussed utilizing Cialis as needed verses daily. Also discussed using 5 mg daily with 10 on demand verses 20 daily. He denies any bothersome urinary issues or concerns. He is happy with current voiding parameters. Will obtain LH, SHBG, prolactin, FSH, and estradiol for further assessment evaluation. Follow-up in 1-3 months with labs to be completed prior; or sooner with any issues, concerns, and or questions. Orders: Orders Lutenizing Hormone Today N52.9 - Male erectile dysfunction, unspecified Sex Hormone Binding Globulin Today N52.9 - Male erectile dysfunction, unspecified AMB Urinalysis Automated Today R33.9 - Retention of urine, unspecified Prolactin Today N52.9 - Male erectile dysfunction, unspecified Follicle Stimulating Hormone Today N52.9 - Male erectile dysfunction, unspecified Estradiol Ultra Sensitive Today E29.1 - Testicular hypofunction Medications: New tadalafil (Cialis) [id number] [facility] [id number] Member [id number] 5 mg PO DAILY 90 days 90 tabs 2RF Changed From tadalafil administer approximately 30min before sexual activity; do not use more than 1 dose per 24hrs 20 mg PO DAILY 30 days PRN 20 tabs 2RF sexual activity To tadalafil administer approximately 30min before sexual activity; do not use more than 1 dose per 24hrs 10 mg (1/2 x 20 mg) PO DAILY 30 days PRN 20 tabs 2RF sexual activity Patient Instructions: The patient had an opportunity to ask questions regarding the treatment plan. All questions were answered. Physical exam, labs, and imaging were discussed and reviewed in detail. As well as risks, benefits, and discussion of treatment choices. No major barriers to understanding were identified. The patient expressed understanding and agreement with the above treatment plan. The patient was made aware they should contact our office by phone for worsening of their current condition, the appearance of new symptoms, or with any questions or concerns. Compliance is encouraged with any medications and follow up testing that is ordered. It is a privilege to be allowed the opportunity to participate in? your urological care.? Again, if you have any questions or concerns If you have any questions or concerns please do not hesitate to contact me. The office is [phone]. This note is constructed using voice recognition software. While every effort has been made to ensure accuracy network security analyst errors may have been included. Yours sincerely, ZANDER Abebe Coding Level of Care Code New Pt Level 4 (46558) Diagnoses Erectile dysfunction N52.9
== END 2023-06-10 13:37 | disposition home or self-care (01) ==
PROVIDERS: PCP Family Medicine; Visit Provider Nurse Practitioner Family
DX: N52.9 Male erectile dysfunction, unspecified (principal); R33.9 Retention of urine, unspecified
CPT/HCPCS: 99204

== ENCOUNTER → 2023-06-10 12:51 | Outpatient (BNVA) | payer OTHER, SELFPAY | PROVIDERS: PCP Family Medicine; Visit Provider Nurse Practitioner Family | DX: N52.9 Male erectile dysfunction, unspecified (principal) | CPT/HCPCS: 81003; 99202 ==

== ENCOUNTER 2023-06-29 09:24 | Outpatient (AMB) | payer OTHER, SELFPAY ==
[2023-06-29 10:03] VITALS: BP 119/62; PULSE 73; O2SAT 99; BMI 23.9
--- NOTE | 2023-06-29 10:03 | MHC.PC.OV ---
Vital Signs 06/29/23 10:03 Height 5 ft 10 in Weight 166 lb 6 oz BMI 23.9 BP 119/62 Blood Pressure Location Lt brachial Position Sitting Pulse 73 Pulse Source Pulse Oximeter Pulse Oximetry (%) 99 Oxygen Delivery Method Room Air Intake Visit Reasons: f/u chronic conditions Intake Note: Patient is here as a follow up on Tadalafil, and would like a refill on that, and would like a referral for a therapist. Allergies No Known Allergies Allergy (Verified 06/29/23 10:07) Medication List - Last Reconciled 06/29/23 by Benoit Ruth MD albuterol sulfate 90 mcg/actuation 2 puffs inhalation Q6H PRN fluticasone propionate 50 mcg/actuation (Flonase Allergy Relief) 1 spray intranasal DAILY PRN hydrocortisone 2.5% (Proctozone-HC) 1 appl [place] BEDTIME PRN multivitamin 1 tab PO DAILY tadalafil (Cialis) 5 mg PO DAILY 90 days tadalafil 10 mg (1/2 x 20 mg) PO DAILY PRN 30 days Tobacco use date assessed: 06/29/23 HPI f/u chronic conditions HPI Details 33 y/o male presents to f/u chronic conditions. Pt is requesting a referral to a therapist. He reports he had been seeing a counselor in the but the program had been suspended. Pt reports he is currently undergoing a divorce. Pt reports ongoing issues with palpitations but notes this has felt generally the same. 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 Lawrence Hightower, Virginia Martinez, Calin Kellogg and colleagues, with an educational ganesh from [employer]. Review of Systems Const Denies chills, Denies fatigue, Denies fever(s), Denies headache(s) and Denies weakness ENT Denies dizziness and Denies headache(s) Card Denies dyspnea Resp Denies cough, Denies dyspnea, Denies wheezing and Denies other (shortness of breath) Musc Denies numbness and Denies tingling Neuro Denies dizziness, Denies headache(s), Denies numbness, Denies tingling and Denies weakness Psych Reports anxiety and Reports depression Endo Denies fatigue Aller/Immun Denies wheezing Physical exam (Primary Care) Vital Signs: Last Vital Signs Pulse 73 06/29/23 10:03 BP 119/62 06/29/23 10:03 Pulse Ox 99 06/29/23 10:03 Oxygen Delivery Method Room Air 06/29/23 10:03 BMI result Body Mass Index 23.9 Tobacco/Smoking Status: Tobacco use Status Tobacco use date assessed 06/29/23 06/29/23 10:08 Patient Tobacco Use Status Never used Tobacco 06/29/23 10:04 Tobacco use type Smokeless Tobacco 06/29/23 10:04 e-Cigarette/Vaping Use Currently Using 06/29/23 10:04 Thrive Assessment: Date of Thrive Assessment Date Thrive assessed 04/25/22 06/29/23 10:04 Const General: well developed; No acute distress Nutritional Appearance: well nourished Orientation/consciousness: patient oriented x3 HENMT Head: Yes normocephalic and Yes atraumatic Eyes General: appearance normal, both eyes and all related structures Pupils: Equal, round and reactive pupils present EOM: EOMs intact bilaterally Resp Effort & Inspection: normal respiratory effort Auscultation: clear to auscultation bilaterally Cardio Rate: regular rate Rhythm: regular rhythm Heart sounds: S1 normal heart sound present, S2 normal heart sound present, no gallops, no murmurs and no rubs Neuro General: patient oriented x3 and gait normal Cranial nerves: Yes Equal, round and reactive pupils present Psych Affect: normal affect Assessment and Plan Assessment & Plan (1) Anxiety with depression: Code(s): F41.8 - Other specified anxiety disorders Plan: Will?refer?patient?to?the?nurse?navigator?to?connect?him?with?a?therapist. Denies?any?SI/HI We?discussed?medications-he?has?tried?Lexapro?in?the?past?which?helps?slightly?but?had?side?effects?he?did?not?prefer?and?does?not?want?to?start?again?currently. I?let?him?know?that?if?he?changes?mind?he?can?let?know?at?any?time.??Also?that?there?are?other?medications?we?could?try. (2) Erectile dysfunction: Code(s): N52.9 - Male erectile dysfunction, unspecified Plan: Has?seen?and?is?followed?by?Urology. Will?refill?his?medication (3) Palpitations: Code(s): R00.2 - Palpitations Plan: Has?appointment?with?cardiology Medications: Refilled tadalafil (Cialis) [id number] [facility] [id number] Member [id number] 5 mg PO DAILY 90 tabs 2RF 90 days tadalafil administer approximately 30min before sexual activity; do not use more than 1 dose per 24hrs 10 mg (1/2 x 20 mg) PO DAILY PRN 20 tabs 2RF sexual activity 30 days Coding Level of Care Code Est Pt Level 4 (74197) Diagnoses Anxiety with depression F41.8 Erectile dysfunction N52.9 Palpitations R00.2
== END 2023-06-29 10:36 | disposition home or self-care (01) ==
PROVIDERS: PCP Family Medicine; Visit Provider Family Medicine
DX: F41.8 Other specified anxiety disorders (principal); N52.9 Male erectile dysfunction, unspecified; R00.2 Palpitations
CPT/HCPCS: 99214

== ENCOUNTER 2023-07-21 08:14 | Outpatient (REF) | payer OTHER, SELFPAY ==
[2023-07-22 19:13] LABS: Follicle Stimulating Hormone 14.2 mIU/mL (1.4-12.8); Lutenizing Hormone 6.3 mIU/mL (1.5-9.3); Prolactin 6.7 ng/mL (2.0-18.0); Sex Hormone Binding Globulin 27 nmol/L (10-50)
[2023-07-27 03:13] LABS: Estradiol Ultra Sensitive 19 pg/mL (< OR = 29)
== END 2023-07-21 08:15 | disposition home or self-care (01) ==
LOC: HO.HMGCLDS 08:14
PROVIDERS: PCP Family Medicine; Visit Provider Nurse Practitioner Family
DX: N52.9 Male erectile dysfunction, unspecified (principal); E29.1 Testicular hypofunction
CPT/HCPCS: 36415; 82670; 83001; 83002; 84146; 84270

== ENCOUNTER 2023-08-04 09:40 | Outpatient (AMB) | payer OTHER, SELFPAY ==
--- NOTE | 2023-08-04 10:01 | A.OFFVIS_ITS ---
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 Required: No Accompanied by: Self / Same As Patient Allergies No Known Allergies Allergy (Verified 08/04/23 10:51) Medication List - Last Reconciled 08/04/23 by RADHA AbebeP- albuterol sulfate 90 mcg/actuation 2 puffs inhalation Q6H PRN fluticasone propionate 50 mcg/actuation (Flonase Allergy Relief) 1 spray intranasal DAILY PRN hydrocortisone 2.5% (Proctozone-HC) 1 appl [place] BEDTIME PRN multivitamin 1 tab PO DAILY tadalafil (Cialis) 5 mg PO DAILY 90 days tadalafil 10 mg (1/2 x 20 mg) PO DAILY PRN 30 days HPI HPI Comments History of Present Illness Details Ezra is a very pleasant 33-year-old male patient of Dr. Ruth. He has a past medical history of bursitis of left shoulder and inguinal hernia. He presents to the office today for follow-up. Of note, patient was seen as a new patient for erectile dysfunction approximately 2 months ago at which time labs were ordered for further assessment evaluation and prescription was provided for on demand Cialis. Recent labs reviewed with the patient today as noted and trended below. 04/11--testosterone 618, free testostero ne 137.2 08/11--estradiol 19, FSH 14.2, LH 6.3, pr olactin 6.7, SHBG 27 In discussion with the patient today reports feeling since his last office visit here he has had significant improvement in his erections as he has been more communicative with his partner and feels this has been helpful. He has recently come out of a 10 year marriage and is undergoing a divorce. He reports no issues with erectile dysfunction while . However, prior to marriage in his younger years as a teenager he did have episodes of erectile dysfunction and feels this has made him at times anxious when needing to perform. He reports currently being in a relationship and partner does not feel there is any issues however he feels at times he does continue to experience issues maintaining erections while having intercourse. He does report morning erections. When asked he does report feeling Cialis PRN has been helpful. He does discuss his pa rtner to be expiereincing issues with yeast infections over the last few months. He reports she is following up with her TECHNICAL WRITING LEAD/MGR regarding this issues. Discussed proper care/hygiene of area. Office urinalysis results reviewed with the patient today. He otherwise offers no other issues or concerns at this time. 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 Current occupational exposures/hazards: No Cognitive needs: No Hearing needs: No Vision needs: No Review of Systems Const All systems reviewed & are unremarkable except as noted in HPI and below Physical Exam Const General: cooperative, healthy appearing, comfortable, no acute distress, well developed, alert and awake Orientation/consciousness: patient oriented x3 Limitations: no limitations HEENT Head: Yes normal to inspection, Yes normocephalic and Yes atraumatic Ears: hearing grossly normal bilaterally Eyes General: appearance normal, both eyes and all related structures Neck Neck: Yes normal visual inspection and Yes trachea midline Chest Chest palpation & inspection: normal inspection of the chest Resp Effort & Inspection: normal respiratory effort and able to speak in complete sentences Cardio Rate: regular rate GI Inspection: Yes normal to inspection General: Yes no CVA tenderness Back/Spine/Pelvis Back: no CVA tenderness Skin General skin exam: no rashes or lesions noted Neuro General: patient oriented x3 Extrem General: Yes normal to inspection Psych Appearance: grossly normal and well kempt Mental Status: mental status grossly normal Speech and movement: Normal speech and movement present and Clear speech present Affect: normal affect Attitude: cooperative Thought process: Normal thought process present Thought content: Normal thought content present Insight: Fair insight present (Psych) Judgement: Fair judgement present (Psych) Results AMB Urinalysis, Automated UA Leukoctes 15 Will/uL Last Edit by Brandyce Ellyn on 08/04/23 10:08 UA Nitrite Negative Last Edit by Brandyce Brediane on 08/04/23 10:08 UA Urobilinogen 0.2 mg/dL Last Edit by Brandyce Brediane on 08/04/23 10:08 UA Protein 0 mg/dL Last Edit by Brandyce SleepOutdiane on 08/04/23 10:08 UA pH 6.0 Last Edit by Brandyce Bress on 08/04/23 10:08 UA Blood 0 Alex/uL Last Edit by [place] Televisionyce Bress on 08/04/23 10:08 UA Specific [place] 1.005 Last Edit by [place] [employer]ce SleepOutdiane on 08/04/23 10:08 UA Ketone Negative Last Edit by Brandyce SleepOutdiane on 08/04/23 10:08 UA Bilirubin 0 mg/dL Last Edit by [employer]yce SleepOutdiane on 08/04/23 10:08 UA Glucose 0 mg/dL Last Edit by [place] Televisionycbecky SleepOutdiane on 08/04/23 10:08 Results Reviewed Results Reviewed: Laboratory Last Values Urine pH (Auto) 6.0 08/04/23 10:07 Specific [place] (Auto) 1.005 08/04/23 10:07 Urine Protein (Auto) 0 mg/dL 08/04/23 10:07 Glucose (UA)(Auto) 0 mg/dL 08/04/23 10:07 Urine Ketones (Auto) Negative 08/04/23 10:07 Urine Blood (Auto) 0 Alex/uL 08/04/23 10:07 Urine Nitrite (Auto) Negative 08/04/23 10:07 Urine Bilirubin (Auto) 0 mg/dL 08/04/23 10:07 Urine Urobilinogen (Auto) 0.2 mg/dL 08/04/23 10:07 Leukocyte Esterase (Auto) 15 Will/uL 08/04/23 10:07 Assessment & Plan Assessment & Plan (1) Erectile dysfunction: Code(s): N52.9 - Male erectile dysfunction, unspecified Plan In office urinalysis results reviewed with the patient today; as noted above. Recent labs reviewed with the patient today as noted above. Discussed potential causes for erectile dysfunction. Discussed lifestyle modifications to assist with erectile dysfunction. Continue p.r.n. 10 mg of Cialis He denies any bothersome urinary issues or concerns. He is happy with current voiding parameters. Discussed proper care and hygiene of area. Follow-up in 3 months; or sooner with any issues, concerns, and or questions. Orders: Orders AMB Urinalysis Automated Today Z13.9 - Encounter for screening, unspecified Patient Instructions: The patient had an opportunity to ask questions regarding the treatment plan. All questions were answered. Physical exam, labs, and imaging were discussed and reviewed in detail. As well as risks, benefits, and discussion of treatment choices. No major barriers to understanding were identified. The patient expressed understanding and agreement with the above treatment plan. The patient was made aware they should contact our office by phone for worsening of their current condition, the appearance of new symptoms, or with any questions or concerns. Compliance is encouraged with any medications and follow up testing that is ordered. It is a privilege to be allowed the opportunity to participate in? your urological care.? Again, if you have any questions or concerns If you have any questions or concerns please do not hesitate to contact me. The office is [phone]. This note is constructed using voice recognition software. While every effort has been made to ensure accuracy yard coupler errors may have been included. Yours sincerely, ZANDER Abebe Coding Level of Care Code Est Pt Level 3 (81486) Diagnoses Erectile dysfunction N52.9
== END 2023-08-04 10:25 | disposition home or self-care (01) ==
PROVIDERS: PCP Family Medicine; Referring Provider Family Medicine; Visit Provider Nurse Practitioner Family
DX: N52.9 Male erectile dysfunction, unspecified (principal); Z13.9 Encounter for screening, unspecified
CPT/HCPCS: 99213

== ENCOUNTER → 2023-08-04 09:40 | Outpatient (BNVA) | payer OTHER, SELFPAY | PROVIDERS: PCP Family Medicine; Visit Provider Nurse Practitioner Family | DX: N52.9 Male erectile dysfunction, unspecified (principal) | CPT/HCPCS: 81003; 99212 ==

== ENCOUNTER 2023-08-07 10:53 | Outpatient (AMB) | payer OTHER, SELFPAY ==
[2023-08-07 10:59] VITALS: BP 110/70; PULSE 80; BMI 25.0
--- NOTE | 2023-08-07 10:59 | MHC.OFFVIS ---
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: No Accompanied by: Self / Same As Patient Allergies No Known Allergies Allergy (Verified 08/04/23 10:51) Medication List - Last Reconciled 08/07/23 by Zay Hernandez MD albuterol sulfate 90 mcg/actuation 2 puffs inhalation Q6H PRN fluticasone propionate 50 mcg/actuation (Flonase Allergy Relief) 1 spray intranasal DAILY PRN hydrocortisone 2.5% (Proctozone-HC) 1 appl [place] BEDTIME PRN multivitamin 1 tab PO DAILY tadalafil (Cialis) 5 mg PO DAILY 90 days tadalafil 10 mg (1/2 x 20 mg) PO DAILY PRN 30 days HPI Comments Details: Thank you for referring Ezra in cardiology consultation today for symptoms of palpitations. 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 Patient says over the last 2 years he has been having intermittent symptoms of palpitations. He describes his palpitations as skipped heartbeats and sometimes fluttering and symptoms of strong heartbeat. Patient that the symptoms are mostly happening when he is resting and/or when he is trying to lay on his left side. He then has to change position to the right sudden symptoms improved. Symptoms are transient. He has tried to figure out any correlation but does not think that there is any correlation to increased personal stress. Also he drinks 1 cup of coffee every day. No significant alcohol use and there is no correlation with his symptoms. Also complains of intermittent episode of chest tightness under stressful situations. Denies any exertional chest discomfort. He said he remains very active. He denies any shortness of breath, orthopnea, PND, lightheadedness, syncope. 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 Current occupational exposures/hazards: No Cognitive needs: No Hearing needs: No Vision needs: No Review of Systems Const Denies chills, Denies fatigue, Denies fever(s), Denies frequent falls, Denies weakness, Denies weight gain and Denies weight loss ENT Denies dizziness Card Denies chest pain, Denies leg edema, Denies lightheadedness, Denies palpitations, Denies dyspnea, Denies dyspnea on exertion and Denies orthopnea Resp Denies cough, Denies dyspnea and Denies dyspnea on exertion GI Denies bloating and Denies change in bowel habits Musc Denies muscle weakness, Denies numbness and Denies tingling Neuro Denies dizziness, Denies frequent falls, Denies numbness, Denies tingling and Denies weakness Endo Denies fatigue and Denies palpitations Physical Exam Vital Signs: Last Vital Signs Pulse 80 08/07/23 10:59 BP 110/70 08/07/23 10:59 BMI result Body Mass Index 25.0 Const General: cooperative, comfortable, no acute distress, well developed, alert, awake and Physically active Nutritional Appearance: average body habitus and well nourished Orientation/consciousness: patient oriented x3 Limitations: no limitations HEENT Head: Yes normocephalic and Yes atraumatic Neck Neck: Yes trachea midline, Yes supple and Yes no JVD Resp Effort & Inspection: normal respiratory effort Auscultation: clear to auscultation bilaterally Cardio Jugular venous distension: no JVD Palpation: normal PMI Rate: regular rate Rhythm: regular rhythm Heart sounds: S1 normal heart sound present, S2 normal heart sound present, no click, no gallops, no murmurs and no rubs GI Auscultation: normal bowel sounds Skin General skin exam: no rashes or lesions noted Neuro General: patient oriented x3 and no focal motor deficits Extrem General: Yes no clubbing, cyanosis or edema Psych Appearance: grossly normal Office Procedures EKG Details: EKG shows normal sinus rhythm with normal EKG [id number], Complete Assessment & Plan Assessment & Plan (1) Palpitations: Code(s): R00.2 - Palpitations Category: Medical Plan: Palpitations which are suggestive extra systoles either PACs or PVCs. These are bothersome to him but not life-limiting at this point time although the diagnose is not clear. Would suggest him to have a Holter monitor for 7 days to assess for the arrhythmias as well as frequency of the arrhythmias. Further treatment based on the findings. Overall benign nature of isolated PACs and PVCs in the setting of normal structure of the heart was discussed with him. Avoidance of stimulants as well as stress mitigation strategies were discussed. Will suggest an echocardiogram to evaluate for cardiac structure and function as well as a stress test see below. If these tests are negative and he has infrequent extra systoles no pharmacotherapy is recommended. This was discussed with him and he is agreeable. (2) Atypical chest pain: Code(s): R07.89 - Other chest pain Category: Medical Plan: Atypical chest pain intermittently. Would suggest a treadmill stress test to evaluate for any evidence of myocardial ischemia although less likely. Possible this could be stress-induced chest tightness. At this point time no pharmacotherapy is recommended. Further treatment based on the finding of the stress test. Will follow up in the clinic after above-mentioned test. Thank you for allowing me to partake in his care Orders: Orders CA stress test Today R07.89 - Other chest pain CA echo transthoracic complete Today R00.2 - Palpitations ECG 7 day holter monitor Today R00.2 - Palpitations
== END 2023-08-07 11:30 | disposition home or self-care (01) ==
PROVIDERS: PCP Family Medicine; Visit Provider Internal Medicine Cardiovascular Disease
DX: R00.2 Palpitations (principal); R07.89 Other chest pain
CPT/HCPCS: 93010; 99204

== ENCOUNTER → 2023-08-07 10:53 | Outpatient (BNVA) | payer OTHER, SELFPAY | PROVIDERS: PCP Family Medicine; Visit Provider Internal Medicine Cardiovascular Disease | DX: R00.2 Palpitations (principal); R07.89 Other chest pain | CPT/HCPCS: 93005; 99202 ==

== ENCOUNTER → 2023-09-01 07:49 | Outpatient (REF) | payer OTHER, SELFPAY ==
--- NOTE | 2023-09-01 07:57 | CA_ITS ---
Transthoracic Echocardiogram Patient (Last, First, Middle): Ezra Kenny, Gender: Male Date of : 1990 Age: 33 Procedure Date: 09/01/2023 Procedure Type: Transthoracic Echocardiogram Location: OP Height: 177.8 cm Weight: 79.38 kg BSA: 1.97 m2 Heart Rate: bpm BP: 130 / 70 mmHg Artillery Specialist: TO Referring MD: Zay Hernandez MD Air Route Controller: Zay Hernandez MD Symptoms: R00.2 - Palpitations Study Quality: Fair ECG Rhythm: Sinus Conclusions: - Normal study Findings Left Ventricle Normal left ventricular size, thickness, and systolic function. The visually estimated ejection fraction is between 55-60%. Diastolic function is normal for age. Peak GLS is -19.1%, within normal limits. Right Ventricle Normal right ventricular cavity size and systolic function. Atria Both atria are normal in size. There is no evidence of interatrial shunt. Aortic Valve Normal aortic valve structure and function. There is no aortic valve stenosis. There is no aortic valve regurgitation. Mitral Valve There is mild anterior mitral leaflet thickening. There is no mitral valve regurgitation. There is no mitral valve stenosis. Pulmonic Valve The pulmonic valve is normal. There is trace pulmonic valve regurgitation. Tricuspid Valve Normal tricuspid valve structure. Tricuspid regurgitation envelope is inadequate for calculation of right ventricular systolic pressure. Normal right atrial pressure. Great Vessels All visible segments of the aorta are normal in size. The visualized portions of the pulmonary artery and branches are normal. Venous The inferior vena cava is normal in size and collapses greater than 50% with inspiration. Pericardium/Pleural There is no evidence of pericardial effusion. Prior Study Comparison No prior study available for comparison. Measurements 2D Linear Measurements IVSd: 0.95 0.6-0.9/0.6-1.0 cm LVIDd: 5.05 3.9-5.3/4.2-5.9 cm LVIDd Index: 2.56 2.4-3.2/2.2-3.1 cm/m2 LVIDs: 3.38 2.0-3.6 cm LVPWd: 0.73 0.7-1.1 cm LA Diam: 3.00 2.7-3.8/3.0-4.0 cm LAIDs Index: 1.52 1.5-2.3 cm/m2 LV Mass: 183.64 67-162/88-224 g LV Mass Index: 93.22 43-95/49-115 g/m2 LVOT Diam: 2.30 3.0+(-)1.3 cm 2D Systolic Function EF 4C: 55.10 >55% EF 2C: 56.30 >55% EF BiP: 55.60 >55% Mitral Valve MV Pk E: 0.64 MV PK A: 0.51 MV Decel Time: 128.00 E/A: 1.30 E'Lateral: 12.70 E'Medial: 9.79 E/E' Med: 6.60 E/E' Lat: 5.10 PHT: 37.00 MVA PHT: 5.95 Decel [place]: 5.03 Aortic Valve AoV Pk Shahab: 1.09 AoV Mn Shahab: 0.79 AoV VTI: 0.21 AoV Pk Grad: 5.00 Aov Mn Grad: 3.00 BRIGITTE Cont.VTI: 3.49 LVOT LVOT Pk Shahab: 0.97 LVOT Mn Shahab: 0.61 LVOT VTI: 0.18 LVOT Pk Grad: 4.00 LVOT Mn Grad: 2.00 LVOT Diam: 2.30 LVOT Area: 4.15 Diastolic Function MV Pk E: 0.64 MV Pk A: 0.51 E/A: 1.30 E'Medial: 9.79 E/E' Med: 6.60 E' Laterial: 12.70 E/E' Lat: 5.10 Right Ventricle TAPSE (mm): 18.30 TVS' Shahab: 11.50 Tricuspid Valve RA Press: 3.00 Great Vessels Aorta Sinus of Valsalva: 3.53 2.0-3.5 cm Ao Asc: 3.10 2.1-3.4 cm Updated in Other Vendor System with Status of Final Zay Hernandez MD electronically signed on 09/02/2023 11:20:00 AM with status of Final
--- NOTE | 2023-09-01 07:57 | CA_ITS ---
Acquisition Time: 2023-09-01 09:06:18 Total Exercise Time: 00:09:50 Test Indications: ATYPICAL CHEST PAIN Medications: NONE Protocol: ERIN Max HR: 160 BPM 86% of Pred: 186 BPM Max BP: 138/070 mmHG Max Work Load: 11.4 METS Exercise stress test exerise 9 min 50 sec of Erin protocol achieving 86% MPHR, without anginal symptoms, wirthout arrhythmias, with normotensive response to exercise, with T wave inversion in leads 2, 3, aVF V4-V6. Test reviewed with Dr. Hernandez Referred By: Zay Hernandez Overread By: Belén Rodriguez
== END ==
LOC: HO.CARD 07:49
PROVIDERS: PCP Family Medicine; Visit Provider Internal Medicine Cardiovascular Disease
DX: R00.2 Palpitations (principal); R07.89 Other chest pain
CPT/HCPCS: 93017; 93242; 93306; 93356

== ENCOUNTER → 2023-09-01 07:57 | Outpatient (BNV) | payer OTHER, SELFPAY | PROVIDERS: PCP Family Medicine; Visit Provider Nurse Practitioner | DX: I34.89 Other nonrheumatic mitral valve disorders (principal) | CPT/HCPCS: 93016; 93018; 93350; 93356 ==

== ENCOUNTER 2023-09-15 07:55 | Outpatient (AMB) | payer OTHER, SELFPAY ==
[2023-09-15 08:29] VITALS: BP 108/72; PULSE 78; BMI 25.1
--- NOTE | 2023-09-15 08:29 | A.OFFVIS_ITS ---
Vital Signs 09/15/23 08:29 Height 5 ft 10 in Weight 175 lb 0.752 oz BMI 25.1 BP 108/72 Blood Pressure Location Rt brachial Position Sitting Pulse 78 Pulse Source Pulse Oximeter Intake Visit Reasons: 6 wk fu after ett, holter/echo Fire Alarm Inspector Required: No Allergies No Known Allergies Allergy (Verified 09/15/23 08:31) Medication List - Last Reconciled 09/15/23 by Carmen Prater, BRIANNA-C albuterol sulfate 90 mcg/actuation 2 puffs inhalation Q6H PRN fluticasone propionate 50 mcg/actuation (Flonase Allergy Relief) 1 spray int ranasal DAILY PRN hydrocortisone 2.5% (Proctozone-HC) 1 appl CO BEDTIME PRN multivitamin 1 tab PO DAILY tadalafil 10 mg (1/2 x 20 mg) PO DAILY PRN 30 days HPI HPI 6 wk fu after ett, holter/echo: Details: Ezra is a 33-year-old male who was recently undergone cardiac evaluation for atypical chest discomfort and heart palpitations. Had an echocardiogram and stress test and now presents for follow-up. A Holter monitor was ordered however not completed due to technical issues. Today he reports he has been doing well since his last visit. He will still notice some heart palpitations, mostly occurring at rest. He has not noticing heart palpitations during his physical activity and exercise. He has no presyncope, syncope, falls. He has no exertional chest discomfort. No shortness of breath, PND, orthopnea or edema. He is in the [employer] and has to do routine exercise. 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 Current occupational exposures/hazards: No Cognitive needs: No Hearing needs: No Vision needs: No Review of Systems Const All systems reviewed & are unremarkable except as noted in HPI and below ENT Denies dizziness Card Details: palpitations at rest Denies chest pain, Denies chest pain at rest, Denies chest pain with activity, Denies rapid heart rate, Denies pedal edema, Denies edema, Denies leg edema, Denies lightheadedness, Denies palpitations, Denies dyspnea, Denies dyspnea on exertion and Denies orthopnea Resp Denies cough, Denies dyspnea and Denies dyspnea on exertion GI Denies hematochezia and Denies change in stool character Musc Denies abnormal gait, Denies limited range of motion, Denies muscle cramps, Denies muscle weakness, Denies numbness, Denies radiating pain into limb, Denies stiffness and Denies tingling Neuro Denies abnormal gait, Denies dizziness, Denies numbness and Denies tingling Endo Denies palpitations Physical Exam Vital Signs: Last Vital Signs Pulse 78 09/15/23 08:29 BP 108/72 09/15/23 08:29 BMI result Body Mass Index 25.1 Const General: cooperative, healthy appearing, comfortable and no acute distress Orientation/consciousness: patient oriented x3 Neck Neck: Yes normal visual inspection and Yes no JVD Resp Effort & Inspection: normal respiratory effort Auscultation: clear to auscultation bilaterally, no crackles, no rales, no rhonchi and no wheezes Cardio Jugular venous distension: no JVD Rate: regular rate Rhythm: regular rhythm Heart sounds: S1 normal heart sound present, S2 normal heart sound present, no murmurs and no rubs Neuro General: patient oriented x3 Extrem General: Yes normal to inspection and No no pedal edema Psych Appearance: grossly normal Mental Status: mental status grossly normal Speech and movement: Normal speech and movement present Assessment & Plan Assessment & Plan (1) Palpitations: Code(s): R00.2 - Palpitations Category: Medical Plan: Reports of heart palpitations which are suggestive of extrasystoles. Mostly occurring at rest. No presyncope, syncope. Echocardiogram done 09/01/2023 showed normal study, EF 55-60%. Holter monitor was ordered however patient had issues with the device staying on during his physical activity due to sweating. Will send him back down to cardiology following this visit for extra patches and new monitor. Plan to call him with results once available. Informed him that with normal EF, extrasystoles are likely benign. Reviewed good hydration, continue activity as tolerated, reduction in caffeinated beverages. (2) Atypical chest pain: Code(s): R07.89 - Other chest pain Category: Medical Plan: Reports of intermittent atypical chest discomfort, nonexertional. He did undergo an exercise stress test on 09/01/2023 with exercise 9 minutes 50 seconds, no anginal symptoms, EKGs at peak exercise do not show ischemia however there are T-wave inversions in recovery which are different from baseline EKG. Reviewed this result with him. For completeness will order a stress echocardiogram to evaluate for any wall motion abnormalities that could suggest ischemia. Plan to call him with results. Will arrange for office visit only if test results are abnormal. He is agreeable to this plan. (3) Abnormal stress ECG: Code(s): R94.39 - Abnormal result of other cardiovascular function study Category: Medical Plan: As above Plan Time spent on chart review, documentation, interview and assessment Orders: Orders CA echo stress exercise Today R07.89 - Other chest pain, R94.39 - Abnormal result of other cardiovascular function study Coding Level of Care Code Est Pt Level 3 (82984) Diagnoses Palpitations R00.2 Atypical chest pain R07.89 Abnormal stress ECG R94.39 Time Spent (min) 24
== END 2023-09-15 08:59 | disposition home or self-care (01) ==
PROVIDERS: PCP Family Medicine; Visit Provider Nurse Practitioner Family
DX: R00.2 Palpitations (principal); R07.89 Other chest pain; R94.39 Abnormal result of other cardiovascular function study
CPT/HCPCS: 99213

== ENCOUNTER → 2023-09-15 07:55 | Outpatient (BNVA) | payer OTHER, SELFPAY | PROVIDERS: PCP Family Medicine; Visit Provider Nurse Practitioner Family | DX: R00.2 Palpitations (principal); R07.89 Other chest pain; R94.39 Abnormal result of other cardiovascular function study | CPT/HCPCS: 99212 ==

== ENCOUNTER → 2023-10-13 10:43 | Outpatient (REF) | payer OTHER, SELFPAY ==
--- NOTE | 2023-10-13 10:46 | CA_ITS ---
Acquisition Time: 2023-10-13 11:23:32 Total Exercise Time: 00:13:25 Test Indications: CP Medications: SEE H Protocol: ERIN Max HR: 187 BPM 100% of Pred: 186 BPM Max BP: 160/078 mmHG Max Work Load: 16.0 METS Exercise stress test exercise 13 min 25 sec of Erin protocol achieving 100% MPHR, with mild SOB, no chest discomfort, without arrhythmias, with normotensive response to exercise, with T wave inversion leads 2, 3, aVF, V3-V6. Echo images obtained by Misohoni at rest and immediately post peak exercise. Defninty contrast used. Test reviewed with Dr. Hernandez. Referred By: Carmen Prater Overread By: Belén Rodriguez
== END ==
LOC: HO.CARD 10:43
PROVIDERS: PCP Family Medicine; Visit Provider Nurse Practitioner Family
DX: R07.89 Other chest pain (principal); R94.39 Abnormal result of other cardiovascular function study
CPT/HCPCS: 93350; Q9957

== ENCOUNTER → 2023-10-13 10:46 | Outpatient (BNV) | payer OTHER, SELFPAY | PROVIDERS: PCP Family Medicine; Visit Provider Nurse Practitioner | DX: R07.9 Chest pain, unspecified (principal); R06.02 Shortness of breath | CPT/HCPCS: 93016; 93018; 93350; 93352 ==

== ENCOUNTER 2023-11-03 13:43 | Outpatient (AMB) | payer OTHER, SELFPAY ==
--- NOTE | 2023-11-03 13:48 | A.OFFVIS_ITS ---
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 Ruth. He has a past medical history of bursitis of left shoulder and inguinal hernia. He presents to the office today for follow-up of his erectile dysfunction. In discussion with the patient today he reports to be doing and feeling well. He reports utilizing p.r.n. Cialis every 2-3 days with good effect. Currently d enies any bothersome urinary issues or concerns. Previous workup has included hypogonadal labs as noted and trended below. 04/11--testosterone 618, free testosterone 137.2 08/11--estradiol 19, FSH 14.2, LH 6.3, prolactin 6.7, SHBG 27 In discussion with the patient today reports feeling since his last office visit here he has had significant improvement in his erections as he has been more communicative with his partner and feels this has been helpful. He has recently come out of a 10 year marriage and is undergoing a divorce. He reports no issues with erectile dysfunction while . However, prior to marriage in his younger years as a teenager he did have episodes of erectile dysfunction and feels this has made him at times anxious when needing to perform. He does report morning erections. When asked he does report feeling Cialis PRN has been helpful. In office urinalysis results reviewed with the patient today. He otherwise offers no other issues or concerns at this time. 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 Current occupational exposures/hazards: No Cognitive needs: No Hearing needs: No Vision needs: No Review of Systems Const All systems reviewed & are unremarkable except as noted in HPI and below Physical Exam Const General: cooperative, healthy appearing, comfortable, no acute distress, well developed, alert and awake Orientation/consciousness: patient oriented x3 Limitations: no limitations HEENT Head: Yes normal to inspection, Yes normocephalic and Yes atraumatic Ears: hearing grossly normal bilaterally Eyes General: appearance normal, both eyes and all related structures Neck Neck: Yes normal visual inspection and Yes trachea midline Chest Chest palpation & inspection: normal inspection of the chest Resp Effort & Inspection: normal respiratory effort and able to speak in complete sentences Cardio Rate: regular rate GI Inspection: Yes normal to inspection General: Yes no CVA tenderness Back/Spine/Pelvis Back: no CVA tenderness Skin General skin exam: no rashes or lesions noted Neuro General: patient oriented x3 Extrem General: Yes normal to inspection Psych Appearance: grossly normal and well kempt Mental Status: mental status grossly normal Speech and movement: Normal speech and movement present and Clear speech present Affect: normal affect Attitude: cooperative Thought process: Normal thought process present Thought content: Normal thought content present Insight: Fair insight present (Psych) Judgement: Fair judgement present (Psych) Results AMB Urinalysis, Automated UA Leukoctes 0 Will/uL Last Edit by ALBERTINA Ya on 11/03/23 14:03 UA Nitrite Negative Last Edit by ALBERTINA Ya on 11/03/23 14:03 UA Urobilinogen 0.2 mg/dL Last Edit by ALBERTINA Ya on 11/03/23 14:0 3 UA Protein 0 mg/dL Last Edit by ALBERTINA Ya on 11/03/23 14:03 UA pH 7.0 Last Edit by ALBERTINA Ya on 11/03/23 14:03 UA Blood 0 Alex/uL Last Edit by ALBERTINA Ya on 11/03/23 14:03 UA Specific [place] 1.010 Last Edit by ALBERTINA Ya on 11/03/23 14: 03 UA Ketone Negative Last Edit by ALBERTINA Ya on 11/03/23 14:03 UA Bilirubin 0 mg/dL Last Edit by ALBERTINA Ya on 11/03/23 14:03 UA Glucose 0 mg/dL Last Edit by ALBERTINA Ya on 11/03/23 14:03 Results Reviewed Results Reviewed: Laboratory Last Values Urine pH (Auto) 7.0 11/03/23 14:02 Specific [place] (Auto) 1.010 11/03/23 14:02 Urine Protein (Auto) 0 mg/dL 11/03/23 14:02 Glucose (UA)(Auto) 0 mg/dL 11/03/23 14:02 Urine Ketones (Auto) Negative 11/03/23 14:02 Urine Blood (Auto) 0 Alex/uL 11/03/23 14:02 Urine Nitrite (Auto) Negative 11/03/23 14:02 Urine Bilirubin (Auto) 0 mg/dL 11/03/23 14:02 Urine Urobilinogen (Auto) 0.2 mg/dL 11/03/23 14:02 Leukocyte Esterase (Auto) 0 Will/uL 11/03/23 14:02 Assessment & Plan Assessment & Plan (1) Erectile dysfunction: Code(s): N52.9 - Male erectile dysfunction, unspecified Category: Medical Plan In office urinalysis results reviewed with the patient today; as noted above. Discussed lifestyle modifications to assist with erectile dysfunction. Continue p.r.n. 10 mg of Cialis He denies any bothersome urinary issues or concerns. He is happy with current voiding parameters. Follow-up in 3 months; or sooner with any issues, concerns, and or questions. Orders: Orders AMB Urinalysis Automated Today Z13.9 - Encounter for screening, unspecified Patient Instructions: The patient had an opportunity to ask questions regarding the treatment plan. All questions were answered. Physical exam, labs, and imaging were discussed and reviewed in detail. As well as risks, benefits, and discussion of treatment choices. No major barriers to understanding were identified. The patient expressed understanding and agreement with the above treatment plan. The patient was made aware they should contact our office by phone for worsening of their current condition, the appearance of new symptoms, or with any questions or concerns. Compliance is encouraged with any medications and follow up testing that is ordered. It is a privilege to be allowed the opportunity to participate in? your urological care.? Again, if you have any questions or concerns If you have any questions or concerns please do not hesitate to contact me. The office is [phone]. This note is constructed using voice recognition software. While every effort has been made to ensure accuracy architectural design lecturer errors may have been included. Yours sincerely, ZANDER Abebe Coding Level of Care Code Est Pt Level 3 (72652) Diagnoses Erectile dysfunction N52.9
== END 2023-11-03 14:41 | disposition home or self-care (01) ==
PROVIDERS: PCP Family Medicine; Referring Provider Family Medicine; Visit Provider Nurse Practitioner Family
DX: Z13.9 Encounter for screening, unspecified (principal); N52.9 Male erectile dysfunction, unspecified
CPT/HCPCS: 99213

== ENCOUNTER → 2023-11-03 13:43 | Outpatient (BNVA) | payer OTHER, SELFPAY | PROVIDERS: PCP Family Medicine; Visit Provider Nurse Practitioner Family | DX: N52.9 Male erectile dysfunction, unspecified (principal); Z79.899 Other long term (current) drug therapy | CPT/HCPCS: 81003; 99212 ==

== ENCOUNTER 2024-01-26 13:43 | Outpatient (AMB) | payer OTHER, SELFPAY ==
--- NOTE | 2024-01-26 13:46 | A.OFFVIS_ITS ---
Intake Visit Reasons: 3m follow up Intake Note: Patient presents today for follow up on: erectile dysfunction Urology Medications: Tadalafil Allergies to Antibiotic: None Blood Thinner: None Entry Specialist Required: No Accompanied by: Self / Same As Patient Allergies No Known Allergies Allergy (Verified 01/26/24 21:00) Medication List - Last Reconciled 01/26/24 by ZANDER Abebe albuterol sulfate 90 mcg/actuation 2 puffs inhalation Q6H PRN fluticasone propionate 50 mcg/actuation (Flonase Allergy Relief) 1 spray intranasal DAILY PRN multivitamin 1 tab PO DAILY tadalafil 10 mg (1/2 x 20 mg) PO DAILY PRN 30 days HPI Comments Details: Ezra is a very pleasant 33-year-old male patient of Dr. Ruth. He has a past medical history of bursitis of left shoulder and inguinal hernia. He presents to the office today for follow-up of his erectile dysfunction. In discussion with the patient today he reports to be doing and feeling well. He reports utilizing p.r.n. Cialis every 2-3 days with good effect. Currently denies any bothersome urinary issues or concerns. Previous workup has included hypogonadal labs as noted and trended below. 04/11--testosterone 618, free testosterone 137.2 08/11--estradiol 19, FSH 14.2, LH 6.3, prolactin 6.7, SHBG 27 In discussion with the patient today reports feeling since his last office visit here he continues with improvement in his erections at times however described erections to be variable at times. He has recently come out of a 10 year marriage and is undergoing a divorce. He discusses since his last office visit he has since gotten almost 100% custody of his two boys. He has a previous history of erectile dysfunction as a teenager. In office urinalysis results reviewed with the patient today. He otherwise offers no other issues or concerns at this time. 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 Current occupational exposures/hazards: No Cognitive needs: No Hearing needs: No Vision needs: No Review of Systems Const All systems reviewed & are unremarkable except as noted in HPI and below Physical Exam Const General: cooperative, healthy appearing, comfortable, no acute distress, well developed, alert and awake Orientation/consciousness: patient oriented x3 Limitations: no limitations HEENT Head: Yes normal to inspection, Yes normocephalic and Yes atraumatic Ears: hearing grossly normal bilaterally Eyes General: appearance normal, both eyes and all related structures Neck Neck: Yes normal visual inspection and Yes trachea midline Chest Chest palpation & inspection: normal inspection of the chest Resp Effort & Inspection: normal respiratory effort and able to speak in complete sentences Cardio Rate: regular rate GI Inspection: Yes normal to inspection General: Yes no CVA tenderness Back/Spine/Pelvis Back: no CVA tenderness Skin General skin exam: no rashes or lesions noted Neuro General: patient oriented x3 Extrem General: Yes normal to inspection Psych Appearance: grossly normal and well kempt Mental Status: mental status grossly normal Speech and movement: Normal speech and movement present and Clear speech present Affect: normal affect Attitude: cooperative Thought process: Normal thought process present Thought content: Normal thought content present Insight: Fair insight present (Psych) Judgement: Fair judgement present (Psych) Results AMB Urinalysis, Automated UA Leukoctes 0 Will/uL Last Edit by Yodit Ragland on 01/26/24 13:58 UA Nitrite Negative Last Edit by Yodit Ragland on 01/26/24 13:58 UA Urobilinogen 0.2 mg/dL Last Edit by Yodit Ragland on 01/26/24 13:58 UA Protein 0 mg/dL Last Edit by Yodit Ragland on 01/26/24 13:58 UA pH 6.0 Last Edit by Yodit Ragland on 01/26/24 13:58 UA Blood 0 Alex/uL Last Edit by Yodit Ragland on 01/26/24 13:58 UA Specific Echo 1.010 Last Edit by Yodit Ragland on 01/26/24 13:58 UA Ketone Last Edit by Yodit Ragland on 01/26/24 13:58 UA Bilirubin 0 mg/dL Last Edit by Yodit Ragland on 01/26/24 13:58 UA Glucose 0 mg/dL Last Edit by Yodit Ragland on 01/26/24 13:58 Results Reviewed Results Reviewed: Laboratory Last Values Urine pH (Auto) 6.0 01/26/24 13:51 Specific Echo (Auto) 1.010 01/26/24 13:51 Urine Protein (Auto) 0 mg/dL 01/26/24 13:51 Glucose (UA)(Auto) 0 mg/dL 01/26/24 13:51 Urine Blood (Auto) 0 Alex/uL 01/26/24 13:51 Urine Nitrite (Auto) Negative 01/26/24 13:51 Urine Bilirubin (Auto) 0 mg/dL 01/26/24 13:51 Urine Urobilinogen (Auto) 0.2 mg/dL 01/26/24 13:51 Leukocyte Esterase (Auto) 0 Will/uL 01/26/24 13:51 Assessment & Plan Assessment & Plan (1) Erectile dysfunction: Code(s): N52.9 - Male erectile dysfunction, unspecified Category: Medical Plan In office urinalysis results reviewed with the patient today; as noted above. Discussed lifestyle modifications to assist with erectile dysfunction. Continue p.r.n. 10 mg of Cialis He denies any bothersome urinary issues or concerns. He is happy with current voiding parameters. Follow-up in 3-4 months; or sooner with any issues, concerns, and or questions. Orders: Orders AMB Urinalysis Automated Today Z13.9 - Encounter for screening, unspecified Medications: Refilled tadalafil administer approximately 30min before sexual activity; do not use more than 1 dose per 24hrs 10 mg (1/2 x 20 mg) PO DAILY 30 days PRN 20 tabs 4RF sexual activity Patient Instructions: The patient had an opportunity to ask questions regarding the treatment plan. All questions were answered. Physical exam, labs, and imaging were discussed and reviewed in detail. As well as risks, benefits, and discussion of treatment choices. No major barriers to understanding were identified. The patient expressed understanding and agreement with the above treatment plan. The patient was made aware they should contact our office by phone for worsening of their current condition, the appearance of new symptoms, or with any questions or concerns. Compliance is encouraged with any medications and follow up testing that is ordered. It is a privilege to be allowed the opportunity to participate in? your urological care.? Again, if you have any questions or concerns If you have any questions or concerns please do not hesitate to contact me. The office is [phone]. This note is constructed using voice recognition software. While every effort has been made to ensure accuracy retail link analyst errors may have been included. Yours sincerely, ZANDER Abebe Coding Level of Care Code Est Pt Level 3 (25313) Diagnoses Erectile dysfunction N52.9
== END 2024-01-26 14:38 | disposition home or self-care (01) ==
PROVIDERS: PCP Family Medicine; Visit Provider Nurse Practitioner Family
DX: N52.9 Male erectile dysfunction, unspecified (principal); Z13.9 Encounter for screening, unspecified
CPT/HCPCS: 99213

== ENCOUNTER → 2024-01-26 13:43 | Outpatient (BNVA) | payer OTHER, SELFPAY | PROVIDERS: PCP Family Medicine; Visit Provider Nurse Practitioner Family | DX: N52.9 Male erectile dysfunction, unspecified (principal) | CPT/HCPCS: 81003; 99212 ==

== ENCOUNTER 2024-05-02 08:57 | Outpatient (AMB) | payer OTHER, SELFPAY ==
--- NOTE | 2024-05-02 09:00 | A.OFFPC_ITS ---
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 Required: No Allergies No Known Allergies Allergy (Verified 05/02/24 09:04) Medication List - Last Reconciled 05/02/24 by Benoit Ruth MD albuterol sulfate 90 mcg/actuation 2 puffs inhalation Q6H PRN fluticasone propionate 50 mcg/actuation (Flonase Allergy Relief) 1 spray intranasal DAILY PRN multivitamin 1 tab PO DAILY tadalafil 10 mg (1/2 x 20 mg) PO DAILY PRN 30 days Tobacco use date assessed: 05/02/24 Dental Screening Dental Screen Date: 05/02/24 Did you have a dental visit in the last 12 months?: Yes Did you have a dental problem in the last 6 months where you did not have access to dental care?: No Was dental information given to patient?: Patient has dentist HPI Extended exam with f/u labs and health maintenance HPI Details 33 y/o male presents for a CPE with f/u labs and health maintenance. No recent labs to review. Hx of atypical chest pain. Work-up had been normal with cardiology. 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 1. Little interest or pleasure in doing things: several days 2. Feeling down, depressed, or hopeless: several days 3. Trouble falling or staying asleep, or sleeping too much: not at all 4. Feeling tired or having little energy: not at all 5. Poor appetite or overeating: not at all 6. Feeling bad about yourself - or that you are a failure or have let yourself or your family down: not at all 7. Trouble concentrating on things, such as reading the newspaper or watching television: several days 8. Moving or speaking so slowly that other people could have noticed. Or the opposite - being so fidgety or restless that you have been moving around a lot more than usual: not at all 9. Thoughts that you would be better off or of hurting yourself in some way: not at all Total score: 3 40200 - PHQ-9 Billing: Yes Source: Developed by Drs. Lawrence Hightower, Virginia Martinez, Calin Kellogg and colleagues, with an educational ganesh from [email or web address]. Thrive Questionnaire Date Thrive assessed: 05/02/24 I am a: Patient What is your living situation today?: I have a steady place to live Within the past 12 months, did the food you bought not last and you didn't have the money to get more?: Never true Within the past 12 months, did you worry whether your food would run out before you got money to buy more?: Never true Do you have trouble paying for medicines?: No Do you have trouble getting transportation to medical appointments?: No Do you have trouble paying your heating and electricity bill?: No Do you have trouble taking care of your child, family member or friend?: No Do you have trouble with day-to-day activities such as bathing, preparing meals, shopping, managing finances, etc.?: No Are you currently unemployed and looking for a job?: No Are you interested in more education?: No Please select the resources that you would like help with: None Currently or been in a relationship where the following occur: No concerns reported THRIVE Score: 0 AUDIT C Alcohol Use Questionnaire (AUDIT-C) 1. How often do you have a drink containing alcohol?: 2-4 times a month 2. How many drinks containing alcohol do you have on a typical day when you are drinking?: 1 or 2 3. How often do you have six or more drinks on one occasion?: Never Total Score: 2 PALLAVI-7 AMB Questionnaire PALLAVI-7 Date PALLAVI - 7 assessed: 05/02/24 Feeling nervous, anxious, or on edge: 1 = Several days Not being able to stop or control worryin = Several days Worrying too much about different things: 1 = Several days Trouble relaxin = Several days Being so restless that it is hard to sit still: 0 = Not at all Becoming easily annoyed or irritable: 1 = Several days Feeling afraid as if something awful might happen: 0 = Not at all Total PALLAVI-7 score (0-4 normal; 5-9 mild; 10-14 moderate; 15-21 severe): 5 Source: Developed by Drs. Lawrence Hightower, Virginia Martinez, Calin Kellogg and colleagues, with an educational ganesh from [email or web address]. PALLAVI-7 Assessment Billing APLLAVI-7 Assessment Tool: PALLAVI-7 Assessment 18225 Review of Systems Const Denies chills, Denies fatigue, Denies fever(s), Denies headache(s) and Denies weakness Eyes Denies change in vision ENT Denies dizziness, Denies headache(s), Denies hearing loss, Denies nasal congestion, Denies sinus pain, Denies sinus pressure and Denies sore throat Card Denies chest pain, Denies lightheadedness, Denies dyspnea and Denies other (palpitations) Resp Denies cough, Denies dyspnea and Denies wheezing GI Denies abdominal pain, Denies melena, Denies hematochezia, Denies change in bowel habits, Denies dyspepsia and Denies nausea Denies hematuria and Denies dysuria Musc Denies abnormal gait, Denies myalgias, Denies arthralgias, Denies numbness and Denies tingling Skin/Breast Denies rash, Denies unusual bruising and Denies wounds Neuro Denies abnormal gait, Denies dizziness, Denies headache(s), Denies memory loss, Denies numbness, Denies Sensory deficit (Neuro), Denies tingling and Denies weakness Psych Denies anxiety, Denies depression and Denies memory loss Endo Denies cold intolerance, Denies fatigue, Denies heat intolerance, Denies polydipsia and Denies polyuria Rai/Lymph Denies easy bleeding and Denies easy bruising Aller/Immun Denies wheezing Physical exam (Primary Care) Vital Signs: Last Vital Signs Temp 97.8 F 05/02/24 09:05 Pulse 76 05/02/24 09:05 Resp 16 05/02/24 09:05 BP 129/59 L 05/02/24 09:05 Pulse Ox 98 05/02/24 09:05 Oxygen Delivery Method Room Air 05/02/24 09:05 BMI result Body Mass Index 24.0 Tobacco/Smoking Status: Tobacco use Status Tobacco use date assessed 05/02/24 05/02/24 09:07 Patient Tobacco Use Status Never used Tobacco 05/02/24 09:03 Tobacco use type Smokeless Tobacco 05/02/24 09:03 e-Cigarette/Vaping Use Currently Using 05/02/24 09:03 PHQ-9: PHQ-9 Score PHQ-9: Total score 3 05/02/24 09:39 Thrive Assessment: Date of Thrive Assessment Date Thrive assessed 05/02/24 05/02/24 09:03 Currently or been in a relationship where the following occur: No concerns reported Const General: no acute distress, well developed, alert and awake Nutritional Appearance: well nourished Orientation/consciousness: patient oriented x3 HENMT Head: Yes normocephalic and Yes atraumatic Ears: hearing grossly normal bilaterally and TM's normal bilaterally General nose exam: Normal external nose present and Normal nares present Mouth: Normal oral and palatal mucosa present and moist mucous membranes Teeth and gingiva: dentition normal Throat: Yes posterior oropharynx normal Eyes General: appearance normal, both eyes and all related structures Pupils: Equal, round and reactive pupils present and Pupil accommodation reflex normal EOM: EOMs intact bilaterally Neck Neck: Yes normal visual inspection, Yes no lymphadenopathy and Yes trachea midline Thyroid: Thyroid normal Carotids: no bruits Lymphatic: no lymphadenopathy noted Chest Chest palpation & inspection: normal inspection of the chest Resp Effort & Inspection: normal respiratory effort Auscultation: clear to auscultation bilaterally Cardio Rate: regular rate Rhythm: regular rhythm Heart sounds: S1 normal heart sound present, S2 normal heart sound present, no gallops, no murmurs and no rubs Bruits: no abdominal aortic bruits and no carotid bruits GI Palpation (GI): No Abdominal aortic bruit present, Soft to palpation, nontender, No hepatosplenomegaly present and No Rebound tenderness present Auscultation: normal bowel sounds General: Yes no CVA tenderness Back/Spine/Pelvis Back: no CVA tenderness Cervical Spine: cervical ROM normal and No Cervical spine tenderness Thoracic/Lumbar Spine: thoraco-lumbar ROM normal, No pain with thoraco-lumbar ROM, No thoracic spinal tenderness and No lumbar spinal tenderness Skin Lesions: no lesions Rashes: no rashes Trauma: no lacerations or abrasions Wounds: no wounds Nails: normal Neuro General: patient oriented x3 Cranial nerves: Yes Equal, round and reactive pupils present Cognition (Neuro): normal cognition Gait exam (Neuro): Normal gait present Motor exam (neuro): 5/5 motor strength present throughout Sensory Exam: No Sensory deficit (Neuro) Deep tendon reflexes (DTR's): Right patellar reflex intensity grade: 2+ and Left patellar reflex intensity grade: 2+ Extrem General: Yes normal to inspection and No edema Psych Appearance: grossly normal Affect: normal affect Attitude: cooperative Thought process: Normal thought process present Coding Level of Care Code Est Pt Prev Care 18-39y([id number]) Diagnoses Adult general medical exam Z00.00 Atypical chest pain R07.89 Hemorrhoids K64.9 Additional Codes PALLAVI-7 Assessment Billing - PALLAVI-7 Assessment Tool: PALLAVI-7 Assessment 58691 ([id number]) PHQ-9 - 99681 - PHQ-9 Billing: Yes ([id number]) Assessment & Plan Assessment & Plan (1) Adult general medical exam: Code(s): Z00.00 - Encounter for general adult medical examination without abnormal findings Category: Medical Plan: 33-year-old?male?presents?for?exam Exam?within?normal?limits?except?as?described?below Encouraged?diet?with?active?lifestyle?of?exercise (2) Atypical chest pain: Code(s): R07.89 - Other chest pain Category: Medical Plan: History?of?atypical?chest?pain. Had?workup?with?Cardiology?including?echocardiogram?and?stress?test?with. Can?follow-up?Cardiology?as?recommended (3) Hemorrhoids: Code(s): K64.9 - Unspecified hemorrhoids Category: Medical Plan: Noninflamed?hemorrhoids. Patient?also?had?concerns?about?candidal?infection?in?anal?region but?this?has?resolved. Plan Patient?had?concerns?about?recurrence?yeast?infections?with?his?partner. They?have?tried?numerous?remedies.??He?says?his?partner?has?tried?numerous?remed ies?from?her?junior designer. Currently?using?coconut?Will?as?lubricant?when?they?need?this.??Any?lubricant?co uld?cause PH?changes?leading?to?yeast?infections. Advise?they?try?increasing?foreplay?to?use?natural?lubrication?rat her?than?exogenous?lubricants?to?see?if?this?helps.??Also?advised?boric?acid?tab lets?but?she?has?already?try?this. Lastly,?advise?that?consider?a?different?junior designer?or?specialist. Orders: Orders Lipid Panel Today Z00.00 - Encounter for general adult medical examination without abnormal findings Comprehensive [place]. Panel Fast Today Z00.00 - Encounter for general adult medical examination without abnormal findings Microalbumin, Random (w Creat) Today I10 - Essential (primary) hypertension UA and rflx microscopic Today Z00.00 - Encounter for general adult medical examination without abnormal findings TSH reflex Free T4 Today Z00.00 - Encounter for general adult medical examination without abnormal findings
[2024-05-02 09:05] VITALS: BP 129/59; PULSE 76; RESP 16; TEMP 36.6; O2SAT 98; BMI 24.0
--- OUTSIDE RECORDS SUMMARY | 2024-05-02 09:28 | XMS_ITS | Continuity of Care Document ---
Author Name [facility] Organization [facility] Care Team Providers Care Catalog Specialist Name Role Phone 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 It does not include entries that were removed or entered in error. Problem Status Onset Date Problem Type Date of Resolution Comments Source EXAM, FORMAL OCCUPATIONAL HEALTH PROGRAM INCLUDING HEARING CONSERVATION PROGRAM, PERIODIC FOR CONTINUED SURVEILLANCE FOR OCCUPATIONAL WORKPLACE EXPOSURE Active 6 Condition DoD Deviated nasal septum Active 6 Condition DoD Allergic rhinitis Active Condition [facility] Chest pain Active Condition [facility] Inguinal hernia Active Condition [facility] Lower abdominal pain Active Condition [facility] Nicotine dependence Active Condition [facility] Pain in left shoulder Active Condition [facility] Palpitations Active Condition [facility] Pain in right thigh Active Condition DoD Tobacco use Active Condition DoD 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 DoD no psychiatric diagnosis or condition on axis I Inactive Condition DoD upper respiratory infection Inactive Condition [facility] visit for: administrative purpose Inactive Condition [facility] visit for: services physical Active Condition [facility] visit for: screening exam Active Condition [facility] visit: ears/hearing exam for hearing conservation, treatment Active Condition [facility] visit for: services physical accession Active Condition [facility] visit for: occupational health / fitness exam Active Condition DoD Medications Combined list of outpatient medications from Department of Defense and Veterans Affairs facilities.Medications provided include 1) outpatient medications from the last 15 months, and 2) patient-reported medications. Medication Details Route Status Patient Instructions Prescription Expires Prescription Number Last Dispense Date Ordering Provider Order Date Order Qty Source albuterol 90 mcg/inh aerosol inhaler 2 puff(s), Inhale, every 4 hr, PRN shortnes s of breath or wheezing , # 1 EA, 2 total refill(s ), Maintena nce, 2 puff(s) Inhale every 4 hr,PRN:s hortness of breath or wheezing , Pharmacy : [facility] Inhala tion (breat he in) Discont inued 01/11/2021 1.0 [facility] albuterol 90 mcg/inh aerosol inhaler 2 puff(s), Inhale, every 4 hr, PRN wheezing , # 8.5 g, 0 total refill(s ), Maintena nce, 2 puff(s) Inhale every 4 hr,PRN:a s needed for wheezing , Pharmacy : [facility] Inhala tion (breat he in) Ordered 8.5 0078CO [facility] Adelaida 180 mg oral tablet 1 tab(s), Oral, Daily, PRN allergy symptoms , # 90 tab(s), 3 total refill(s ), Maintena nce, 1 tab(s) Oral Daily,SD N:as needed for allergy symptoms , Pharmacy : [facility] Oral (given by mouth) [facility] Ciprodex 0.3%-0.1% otic suspension 4 drop(s), Ear-Both , BID, # 7.5 mL, 0 total refill(s ), Acute, 4 drop(s) Ear-Both BID, Pharmacy : [facility] Both ears Complet ed 01/16/2021 7.5 0078O [facility] fexofenadin e 180 mg oral tablet 1 tab(s), Oral, Daily, PRN allergy symptoms , # 90 tab(s), 3 total refill(s ), Maintena nce Oral (given by mouth) Ordered 90.0 0310C[facility] [employer] Flonase 50 mcg/inh nasal spray 50 mcg, Nostril- Both, BID, # 16 g, 5 total refill(s ), Maintena nce, 50 mcg Nostril- Both BID, Pharmacy : [facility] Nostri l-Both (into the nose) Ordered 16.0 8CO [facility] HYDROcodone -acetaminop hen 5mg-325mg oral tablet 1 tab(s), Oral, every 4 hr, PRN as needed for pain, 0 total refill(s ), Acute Oral (given by mouth) Discont inued 12/19/[address] [place] [address] inhaler spacer (mani aerosol cloud enhancer) 1 EA, N/A, As Directed , # 1 EA, 0 total refill(s ), Maintena nce, Supply Not Applic able Discont inued 01/11/2021 1.0 0078C-O [facility] methylPREDN ISolone 4 mg oral tablet 1 tab(s), Oral, As Directed , # 100 tab(s), 0 total refill(s ), Acute Oral (given by mouth) Discont inued 12/19/2020 100.0 0078C-O [facility] montelukast Daily, 0 total refill(s ), Maintena nce Ordered 0310C-A [facility] [employer] multivitami n adult, oral tablet Oral, Daily, 0 total refill(s ), Maintena nce Oral (given by mouth) Ordered 0310C-A [facility] [employer] Singulair 10 mg oral tablet 1 tab(s), Oral, every evening, # 90 tab(s), 0 total refill(s ), Maintena nce, 1 tab(s) Oral every evening, Pharmacy : [facility] Oral (given by mouth) Discont inued 04/28/2023 90.0 0078CO [facility] tadalafil Oral, Daily, 0 total refill(s ), Maintena nce Oral (given by mouth) Ordered 0310C-A [facility] [employer] Allergies, Adverse Reactions, Alerts Combined list of allergies from Department of Defense and Veterans Affairs facilities. It does not include entries that were removed or entered in error. Substance Category Reaction Severity Reaction type Status Date Reported Comments Source No Known Allergies Drug allergy (disorder) active 0 [facility] Pet Dander Allergy to substance Unknown Unknown [facility] Seasonal Allergies Allergy to substance Unknown Unknown [facility] Immunizations Combined list of available immunizations from the Department of Defense and Veterans Affairs facilities. Immunization Series Date Given Administered By Site Reaction Lot Number CVX Code Drug Insurance Loss Adjuster Status Comments Source Influenza, injectable, quadrivalent, preservative free 0 2021 [id number] Dotted Blockine (SKB) complet ed Influenza , injectabl e, quadrival ent, preservat preethi free DoD Influenza, injectable, quadrivalent, preservative free 0 2020 [id number] [facility] (SKB) complet ed Influenza , injectabl e, quadrival ent, preservat preethi free DoD COVID-19 vaccine, vector-nr, rS-Ad26, PF, 0.5 mL 2020 JOANN, () Not Given COVID-19 vaccine, vector-nr , rS-Ad26, PF, 0.5 mL DoD SARS-COV-2 (COVID-19) vaccine, vector non-replicati ng, recombinant spike protein-Ad26, preservative free, 0.5 mL 0 2020 Unknown, Provider TRS [address] Camilla (DUSTIN) complet ed SARS-COV- 2 (COVID-19 ) vaccine, vector non-repli cating, recombina nt spike protein-A d26, preservat preethi free, 0.5 mL DoD influenza, injectable, quadrivalent- pf 2019 [id number] 077 150 [employer] complet ed influenza , injectabl e, quadrival ent-pf 03/02/20 Given Ambulat ory Pharmac y influenza, injectable, quadrivalent- pf 2019 [id number] 077 150 [employer] complet ed influenza , injectabl e, quadrival ent-pf 03/02/20 Given Ambulat ory Pharmac y Influenza, injectable, quadrivalent, preservative free 1 2019 [id number] 077 150 [employer] (SEQ) complet ed Influenza , injectabl e, quadrival ent, preservat preethi free DoD tetanus-dipht h toxoids (Td) adult/adol 2019 [id number] sanofi pasteur complet ed tetanus-d iphth toxoids (Td) adult/ado l 07/28/19 Given Ambulat ory Pharmac y tetanus-dipht h toxoids (Td) adult/adol 2019 [id number] 09 sanofi pasteur complet ed tetanus-d iphth toxoids (Td) adult/ado l 07/28/19 Given Ambulat ory Pharmac y tetanus and diphtheria toxoids, adsorbed, preservative free, for adult use (2 Lf of tetanus toxoid and 2 Lf of diphtheria toxoid) 2 2019 [id number] 09 Sanofi Pasteur (PMC) complet ed tetanus and diphtheri a toxoids, adsorbed, preservat preethi free, for adult use (2 Lf of tetanus toxoid and 2 Lf of diphtheri a toxoid) DoD influenza, injectable, quadrivalent 2018 158 complet ed influenza , injectabl e, quadrival ent 02/26/19 Given Ambulat ory Pharmac y influenza, injectable, quadrivalent 2018 158 complet ed influenza , injectabl e, quadrival ent 02/26/19 Given Ambulat ory Pharmac y influenza, injectable, quadrivalent 2018 BRIA DIXON () Not Given influenza , injectabl e, quadrival ent DoD Influenza, injectable, quadrivalent, preservative free 0 2018 150 Sanofi Pasteur (PMC) complet ed Influenza , injectabl e, quadrival ent, preservat preethi free DoD influenza, injectable, quadrivalent, contains preservative 0 2018 158 (MVX) complet ed influenza , injectabl e, quadrival ent, contains preservat preethi DoD measles/mumps /rubella virus vaccine 2018 [id number] 03 Merck & Company Inc complet ed measles/m umps/rube lla virus vaccine 05/26/18 Given Ambulat ory Pharmac y measles/mumps /rubella virus vaccine 2018 [id number] 03 Merck & Company Inc complet ed measles/m umps/rube lla virus vaccine 05/26/18 Given Ambulat ory Pharmac y measles, mumps and rubella virus vaccine 1 2018 [id number] 03 Merck (MSD) complet ed measles, mumps and rubella virus vaccine DoD influenza, injectable, quadrivalent- pf 2017 [id number] 150 GlaxoSmithKli ne complet ed influenza , injectabl e, quadrival ent-pf 03/05/18 Given Ambulat ory Pharmac y influenza, injectable, quadrivalent- pf 2017 [id number] 150 GlaxoSmithKli ne complet ed influenza , injectabl e, quadrival ent-pf 03/05/18 Given Ambulat ory Pharmac y Influenza, injectable, quadrivalent, preservative free 10 2017 [id number] 150 [facility] (B) complet ed Influenza , injectabl e, quadrival ent, preservat preethi free DoD influenza, injectable, quadrivalent- pf 2016 [id number] 150 GlaxoSmithKli ne complet ed influenza , injectabl e, quadrival ent-pf 02/05/17 Given Ambulat ory Pharmac y influenza, injectable, quadrivalent- pf 2016 [id number] 150 GlaxoSmithKli ne complet ed influenza , injectabl e, quadrival ent-pf 02/05/17 Given Ambulat ory Pharmac y Influenza, injectable, quadrivalent, preservative free 9 [id number] [address] complet ed Influenza , injectabl e, quadrival ent, preservat preethi free DoD influenza, seasonal, injectable-pf 2015 [id number] 140 Se[employer]irus complet ed influenza , seasonal, injectabl e-pf 01/23/16 Given Ambulat ory Pharmac y influenza, seasonal, injectable-pf 2015 [id number] 140 Se[employer]irus complet ed influenza , seasonal, injectabl e-pf 01/23/16 Given Ambulat ory Pharmac y human papilloma virus vaccine, quadrivalent 0 2015 62 () Not Given human papilloma virus vaccine, quadrival ent DoD Influenza, seasonal, injectable, preservative free 1 2015 [id number] 140 Seqirus (SEQ) comple t ed Influenza , seasonal, injectabl e, preservat preethi free DoD influenza, live, intranasal,qu adrivalent 2014 [id number] 149 Medimmune Inc comple t ed influenza , live, intranasa l,quadriv alent 01/31/15 Given Ambulat ory Pharmac y influenza, live, intranasal,qu adrivalent 2014 [id number] 149 Medimmune Inc comple t ed influenza , live, intranasa l,quadriv alent 01/31/15 Given Ambulat ory Pharmac y influenza, live, intranasal, quadrivalent 7 2014 [id number] 149 MedImmune, Inc. (MED) complet ed influenza , live, intranasa l, quadrival ent DoD anthrax vaccine 2014 [id number] 24 [employer] complet ed anthrax vaccine 05/29/14 Given Ambulat ory Pharmac y anthrax vaccine 2014 [id number] 24 [employer] complet ed anthrax vaccine 05/29/14 Given Ambulat ory Pharmac y anthrax vaccine 4 2014 [id number] 24 [employer] [place] (MIP) complet ed anthrax vaccine DoD influenza, live, intranasal,qu adrivalent 2013 [id number] 149 Medimmune Inc comple t ed influenza , live, intranasa l,quadriv alent 02/09/14 Given Ambulat ory Pharmac y influenza, live, intranasal,qu adrivalent 2013 [id number] 149 Medimmune Inc comple t ed influenza , live, intranasa l,quadriv alent 02/09/14 Given Ambulat ory Pharmac y influenza, live, intranasal, quadrivalent 6 2013 [id number] 149 [employer] Inc[employer] (MED) complet ed influenza , live, intranasa l, quadrival ent DoD anthrax vaccine 2013 [id number] 24 [employer] complet ed anthrax vaccine 10/11/13 Given Ambulat ory Pharmac y anthrax vaccine 2013 [id number] 24 [employer] complet ed anthrax vaccine 10/11/13 Given Ambulat ory Pharmac y anthrax vaccine 3 2013 [id number] 24 [employer] [place] (MIP) complet ed anthrax vaccine DoD anthrax vaccine 2013 [id number] 24 [employer] complet ed anthrax vaccine 04/25/13 Given Ambulat ory Pharmac y anthrax vaccine 2013 [id number] 24 [employer] complet ed anthrax vaccine 04/25/13 Given Ambulat ory Pharmac y anthrax vaccine 2 2013 [id number] 24 [employer] [place] (MIP) complet ed anthrax vaccine DoD typhoid Vi capsular polysaccharid e vac 2012 [id number] 101 sanofi pasteur complet ed typhoid Vi capsular polysacch aride vac 03/24/13 Given Ambulat ory Pharmac y vaccinia (smallpox) vaccine 2012 VV04-00 3-A 75 [employer] complet ed vaccinia (smallpox ) vaccine 03/24/13 Given Ambulat ory Pharmac y Human Papillomaviru s,quadrivalen t(HPV4) 2012 [id number] 62 Merck & Company Inc complet ed Human Papilloma virus,izabella drivalent (HPV4) 03/24/13 Given Ambulat ory Pharmac y anthrax vaccine 2012 [id number] 24 [employer] complet ed anthrax vaccine 03/24/13 Given Ambulat ory Pharmac y typhoid Vi capsular polysaccharid e vac 2012 J1201 101 sanofi pasteur complet ed typhoid Vi capsular polysacch aride vac 03/24/13 Given Ambulat ory Pharmac y vaccinia (smallpox) vaccine 2012 VV04-00 3-A 75 [employer] [facility] complet ed vaccinia (smallpox ) vaccine 03/24/13 Given Ambulat ory Pharmac y anthrax vaccine 2012 [id number] 24 [employer] complet ed anthrax vaccine 03/24/13 Given Ambulat ory Pharmac y Human Papillomaviru s,quadrivalen t(HPV4) 2012 [id number] 62 Merck & Company Inc complet ed Human Papilloma virus,izabella drivalent (HPV4) 03/24/13 Given Ambulat ory Pharmac y anthrax vaccine 1 2012 [id number] 24 [employer] [place] ([facility]) complet ed anthrax vaccine DoD human papilloma virus vaccine, quadrivalent 0 2012 [id number] 62 Merck (MSD) complet ed human papilloma virus vaccine, quadrival ent DoD vaccinia (smallpox) vaccine 1 2012 VV04-00 3-A 75 [facility] complet ed vaccinia (smallpox ) vaccine DoD typhoid Vi capsular polysaccharid e vaccine 1 2012 J1201 101 Sanofi Pasteur ([facility]) complet ed typhoid Vi capsular polysacch aride vaccine DoD influenza, live, intranasal,qu adrivalent 2012 [id number] 149 Medimmune Inc comple t ed influenza , live, intranasa l,quadriv alent 12/21/12 Given Ambulat ory Pharmac y influenza, live, intranasal,qu adrivalent 2012 [id number] 149 Medimmune Inc comple t ed influenza , live, intranasa l,quadriv alent 12/21/12 Given Ambulat ory Pharmac y influenza, live, intranasal, quadrivalent 0 2012 [id number] 149 [employer] (MED) complet ed influenza , live, intranasa l, quadrival ent [facility] measles virus vaccine 0 2012 05 () Not Given measles virus vaccine DoD rubella virus vaccine 0 2012 06 () Not Given rubella virus vaccine DoD influenza virus vaccine, live 2011 [id number] 111 Medimmune Inc comple t ed influenza virus vaccine, live 01/27/12 Given Ambulat ory Pharmac y influenza virus vaccine, live 2011 [id number] 111 Medimmune Inc comple t ed influenza virus vaccine, live 01/27/12 Given Ambulat ory Pharmac y influenza virus vaccine, live, attenuated, for intranasal use 1 2011 [id number] 111 MedImmune, Inc. (MED) complet ed influenza virus vaccine, live, attenuate d, for intranasa l use DoD influenza virus vaccine, live 2010 [id number] 111 Medimmune Inc comple t ed influenza virus vaccine, live 01/03/11 Given Ambulat ory Pharmac y influenza virus vaccine, live, attenuated, for intranasal use 0 2010 [id number] 111 MedImmune, Inc. (MED) complet ed influenza virus vaccine, live, attenuate d, for intranasa l use DoD influenza virus vaccine, live 2009 [id number] 111 Medimmune Inc comple t ed influenza virus vaccine, live 01/11/10 Given Ambulat ory Pharmac y influenza virus vaccine, live 2009 [id number] 111 Medimmune Inc comple t ed influenza virus vaccine, live 01/11/10 Given Ambulat ory Pharmac y influenza virus vaccine, live, attenuated, for intranasal use 1 2009 [id number] 111 MedImmune, Inc. (MED) complet ed influenza virus vaccine, live, attenuate d, for intranasa l use DoD hepatitis A adult vaccine 2009 [id number] 8BA 52 Merck & Company Inc complet ed hepatitis A adult vaccine 10/31/09 Given Ambulat ory Pharmac y hepatitis A adult vaccine 2009 [id number] 8BA 52 Merck & Company Inc complet ed hepatitis A adult vaccine 10/31/09 Given Ambulat ory Pharmac y hepatitis A vaccine, adult dosage 2 2009 [id number] 8BA 52 Merck (MSD) complet ed hepatitis A vaccine, adult dosage DoD hepatitis A adult vaccine 2009 [id number] 3AA 52 GlaxoSmithKli ne complet ed hepatitis A adult vaccine 04/25/09 Given Ambulat ory Pharmac y hepatitis A adult vaccine 2009 [id number] 3AA 52 GlaxoSmithKli ne complet ed hepatitis A adult vaccine 04/25/09 Given Ambulat ory Pharmac y measles, mumps and rubella virus vaccine 1 2009 03 () Not Given measles, mumps and rubella virus vaccine DoD varicella virus vaccine 1 2009 21 () Not Given varicella virus vaccine DoD hepatitis B vaccine, adult dosage 1 2009 43 () Not Given hepatitis B vaccine, adult dosage DoD hepatitis A vaccine, adult dosage 1 2009 [id number] 3AA 52 [employer] (SKB) complet ed hepatitis A vaccine, adult dosage DoD tuberculin purified protein derivative 2009 [id number] 96 sanofi pasteur complet ed tuberculi n purified protein derivativ e 04/22/09 Given Ambulat ory Pharmac y Novel influenza-H1N 1-09, injectable 2008 [id number] 1 127 Novartis Pharmaceutica ls complet ed Novel influenza -C5A0-31, injectabl e 04/19/09 Given Ambulat ory Pharmac y meningococcal A,C,Y,W-135 (MCV4P) 2008 [id number] 114 sanofi pasteur complet ed meningoco ccal A,C,Y,W-1 35 (MCV4P) 04/19/09 Given Ambulat ory Pharmac y tetanus, diphtheria, acellular pertu is 2008 [id number] 9DA 115 GlaxoSmithKli ne complet ed tetanus, diphtheri a, acellular pertussis 04/19/09 Given Ambulat ory Pharmac y influenza virus vaccine,split 2008 [id number] 1A 15 [employer] complet ed influenza virus vaccine,s plit 04/19/09 Given Ambulat ory Pharmac y poliovirus vaccine, inactivated 2008 [id number] 10 sanofi pasteur complet ed polioviru s vaccine, inactivat ed 04/19/09 Given Ambulat ory Pharmac y meningococcal A,C,Y,W-135 (MCV4P) 2008 [id number] 114 sanofi pasteur complet ed meningoco ccal A,C,Y,W-1 35 (MCV4P) 04/19/09 Given Ambulat ory Pharmac y Novel influenza-H1N 1-09, injectable 2008 [id number] 1 127 Novartis Pharmaceutica ls complet ed Novel influenza -J0B0-55, injectabl e 04/19/09 Given Ambulat ory Pharmac y tetanus, diphtheria, acellular pertu is 2008 [id number] 9DA 115 GlaxoSmithKli ne complet ed tetanus, diphtheri a, acellular pertussis 04/19/09 Given Ambulat ory Pharmac y influenza virus vaccine,split 2008 [id number] 1A 15 [employer] complet ed influenza virus vaccine,s plit 04/19/09 Given Ambulat ory Pharmac y poliovirus vaccine, inactivated 2008 D0042 10 sanofi pasteur complet ed polioviru s vaccine, inactivat ed 04/19/09 Given Ambulat ory Pharmac y poliovirus vaccine, inactivated 1 2008 D0042 10 Sanofi Pasteur ([facility]) complet ed polioviru s vaccine, inactivat ed DoD influenza virus vaccine, split virus (incl. purified surface antigen)-reti red CODE 1 2008 [id number] 1A 15 [employer] (CS) complet ed influenza virus vaccine, split virus (incl. purified surface antigen)- retired CODE DoD meningococcal polysaccharid e (groups A, C, Y and W-135) diphtheria toxoid conjugate vaccine (MCV4P) 1 2008 [id number] 114 Sanofi Pasteur (PMC) complet ed meningoco ccal polysacch aride (groups A, C, Y and W-135) diphtheri a toxoid conjugate vaccine (MCV4P) DoD tetanus toxoid, reduced diphtheria toxoid, and acellular pertu is vaccine, adsorbed 1 2008 [id number] 9DA 115 [facility] (SKB) complet ed tetanus toxoid, reduced diphtheri a toxoid, and acellular pertussis vaccine, adsorbed DoD Novel influenza-H1N 1-09, injectable 1 2008 [id number] 1 127 Novartis Pharmaceutica l Connor. (NOV) complet ed Novel influenza -I6V2-98, injectabl e DoD Results Combined list of recent chemistry, hematology and other laboratory results from Department of Defense and Veterans Affairs, ranging from 15 months to all on record, depending upon the facility. Order Name Results Value Reference Range Date Interpretation Specimen Comments Source Infectio us Disease HIV-1/O/2 Non-Reac tive 21 (01/01/23 9:30 AM) 01/01 N Interpretiv e Data: INTERPRETAT ION: This method is a screening procedure for the detection of HIV p24 Antigen and Antibodies to HIV-1, including Group O, and/or HIV-2. NON-REACTIV E: HIV-1 antigen and HIV-1 / HIV-2 antibodies were not detected. No laboratory evidence of HIV infection. A negative test result does not exclude the possibility of exposure to or infection with HIV. HIV antibodies and/or p24 antigen may be undetectabl e in some stages of the infection and in some clinical conditions. If acute HIV infection is suspected, consider submitting another specimen to a reference laboratory for HIV-1 RNA. SCREEN REACTIVE - CONFIRMATIO N TO FOLLOW: Possible presence of HIV-1antibo dies, HIV-2 antibodies and/or HIV-1 p24 antigen. Specimen will reflex to the confirmatio n testing that fulfills the Center for Disease Control and Prevention' s HIV diagnostic algorithm. Refer to [facility] Lab Guide for additional information : [email or web address] x Testing performed by [facility] patricia mcgill. [facility]mancella marlene [facility] Rep[facility] Sample Received (01/01/23 9:30 AM) 01/01 N [facility] Allergy Testing Allergen, A alternata. WH <0.35 kunits/L 01/11 Result Comment: INTERPRETAT ION(S): KU/L CLASS LEVEL OF ALLERGEN SPECIFIC ANTIBODY <0.35 0 ABSENT/UNDE TECTABLE 0.35-0.70 1 LOW LEVEL 0.71-3.50 2 MODERATE LEVEL 3.51-17.5 3 HIGH LEVEL 17.6-50.0 4 VERY HIGH LEVEL 51-100 5 VERY HIGH LEVEL >100 6 VERY HIGH LEVEL In food allergy, circulating IgE antibodies may remain undetectabl e despite a convincing clinical history because these antibodies may be directed towards allergens that are revealed or altered during industrial processing, cooking or digestion and therefore do not exist in the original food for which the patient is tested. [facility] Allergy Testing Allergen, [place] Grass.WH 62.70 kunits/L 01/11 Result Comment: INTERPRETAT ION(S): KU/L CLASS LEVEL OF ALLERGEN SPECIFIC ANTIBODY <0.35 0 ABSENT/UNDE TECTABLE 0.35-0.70 1 LOW LEVEL 0.71-3.50 2 MODERATE LEVEL 3.51-17.5 3 HIGH LEVEL 17.6-50.0 4 VERY HIGH LEVEL 51-100 5 VERY HIGH LEVEL >100 6 VERY HIGH LEVEL In food allergy, circulating IgE antibodies may remain undetectabl e despite a convincing clinical history because these antibodies may be directed towards allergens that are revealed or altered during industrial processing, cooking or digestion and therefore do not exist in the original food for which the patient is tested. [facility] Allergy Testing Allergen, Cat Dander.WH 0.60 kunits/L 01/11 Result Comment: INTERPRETAT ION(S): KU/L CLASS LEVEL OF ALLERGEN SPECIFIC ANTIBODY <0.35 0 ABSENT/UNDE TECTABLE 0.35-0.70 1 LOW LEVEL 0.71-3.50 2 MODERATE LEVEL 3.51-17.5 3 HIGH LEVEL 17.6-50.0 4 VERY HIGH LEVEL 51-100 5 VERY HIGH LEVEL >100 6 VERY HIGH LEVEL In food allergy, circulating IgE antibodies may remain undetectabl e despite a convincing clinical history because these antibodies may be directed towards allergens that are revealed or altered during industrial processing, cooking or digestion and therefore do not exist in the original food for which the patient is tested. [facility] Allergy Testing Allergen, A fumigatus. WH <0.35 kunits/L 01/11 Result Comment: INTERPRETAT ION(S): KU/L CLASS LEVEL OF ALLERGEN SPECIFIC ANTIBODY <0.35 0 ABSENT/UNDE TECTABLE 0.35-0.70 1 LOW LEVEL 0.71-3.50 2 MODERATE LEVEL 3.51-17.5 3 HIGH LEVEL 17.6-50.0 4 VERY HIGH LEVEL 51-100 5 VERY HIGH LEVEL >100 6 VERY HIGH LEVEL In food allergy, circulating IgE antibodies may remain undetectabl e despite a convincing clinical history because these antibodies may be directed towards allergens that are revealed or altered during industrial processing, cooking or digestion and therefore do not exist in the original food for which the patient is tested. [facility] All[facility] Testing Allergen, Dog Dander.WH 0.77 kunits/L 01/11 Result Comment: INTERPRETAT ION(S): KU/L CLASS LEVEL OF ALLERGEN SPECIFIC ANTIBODY <0.35 0 ABSENT/UNDE TECTABLE 0.35-0.70 1 LOW LEVEL 0.71-3.50 2 MODERATE LEVEL 3.51-17.5 3 HIGH LEVEL 17.6-50.0 4 VERY HIGH LEVEL 51-100 5 VERY HIGH LEVEL >100 6 VERY HIGH LEVEL In food allergy, circulating IgE antibodies may remain undetectabl e despite a convincing clinical history because these antibodies may be directed towards allergens that are revealed or altered during industrial processing, cooking or digestion and therefore do not exist in the original food for which the patient is tested. [facility] All[facility] Testing Allergen, Elm.WH 35.90 kunits/L 01/11 Result Comment: INTERPRETAT ION(S): KU/L CLASS LEVEL OF ALLERGEN SPECIFIC ANTIBODY <0.35 0 ABSENT/UNDE TECTABLE 0.35-0.70 1 LOW LEVEL 0.71-3.50 2 MODERATE LEVEL 3.51-17.5 3 HIGH LEVEL 17.6-50.0 4 VERY HIGH LEVEL 51-100 5 VERY HIGH LEVEL >100 6 VERY HIGH LEVEL In food allergy, circulating IgE antibodies may remain undetectabl e despite a convincing clinical history because these antibodies may be directed towards allergens that are revealed or altered during industrial processing, cooking or digestion and therefore do not exist in the original food for which the patient is tested. [facility] Allergen, Cruz Grass.WH >100.00 kunits/L 01/11 Result Comment: INTERPRETAT ION(S): KU/L CLASS LEVEL OF ALLERGEN SPECIFIC ANTIBODY <0.35 0 ABSENT/UNDE TECTABLE 0.35-0.70 1 LOW LEVEL 0.71-3.50 2 MODERATE LEVEL 3.51-17.5 3 HIGH LEVEL 17.6-50.0 4 VERY HIGH LEVEL 51-100 5 VERY HIGH LEVEL >100 6 VERY HIGH LEVEL In food allergy, circulating IgE antibodies may remain undetectabl e despite a convincing clinical history because these antibodies may be directed towards allergens that are revealed or altered during industrial processing, cooking or digestion and therefore do not exist in the original food for which the patient is tested. [facility] Allergen, Common Ragweed.WH 42.90 kunits/L 01/11 Result Comment: INTERPRETAT ION(S): KU/L CLASS LEVEL OF ALLERGEN SPECIFIC ANTIBODY <0.35 0 ABSENT/UNDE TECTABLE 0.35-0.70 1 LOW LEVEL 0.71-3.50 2 MODERATE LEVEL 3.51-17.5 3 HIGH LEVEL 17.6-50.0 4 VERY HIGH LEVEL 51-100 5 VERY HIGH LEVEL >100 6 VERY HIGH LEVEL In food allergy, circulating IgE antibodies may remain undetectabl e despite a convincing clinical history because these antibodies may be directed towards allergens that are revealed or altered during industrial processing, cooking or digestion and therefore do not exist in the original food for which the patient is tested. [facility] Allergen, C maninder.W H <0.35 kunits/L 01/11 Result Comment: INTERPRETAT ION(S): KU/L CLASS LEVEL OF ALLERGEN SPECIFIC ANTIBODY <0.35 0 ABSENT/UNDE TECTABLE 0.35-0.70 1 LOW LEVEL 0.71-3.50 2 MODERATE LEVEL 3.51-17.5 3 HIGH LEVEL 17.6-50.0 4 VERY HIGH LEVEL 51-100 5 VERY HIGH LEVEL >100 6 VERY HIGH LEVEL In food allergy, circulating IgE antibodies may remain undetectabl e despite a convincing clinical history because these antibodies may be directed towards allergens that are revealed or altered during industrial processing, cooking or digestion and therefore do not exist in the original food for which the patient is tested. [facility] Allergen, D farinae.WH 23.40 kunits/L 01/11 Result Comment: INTERPRETAT ION(S): KU/L CLASS LEVEL OF ALLERGEN SPECIFIC ANTIBODY <0.35 0 ABSENT/UNDE TECTABLE 0.35-0.70 1 LOW LEVEL 0.71-3.50 2 MODERATE LEVEL 3.51-17.5 3 HIGH LEVEL 17.6-50.0 4 VERY HIGH LEVEL 51-100 5 VERY HIGH LEVEL >100 6 VERY HIGH LEVEL In food allergy, circulating IgE antibodies may remain undetectabl e despite a convincing clinical history because these antibodies may be directed towards allergens that are revealed or altered during industrial processing, cooking or digestion and therefore do not exist in the original food for which the patient is tested. [facility] Allergen, Mugwort. 11.70 kunits/L 01/11 Result Comment: INTERPRETAT ION(S): KU/L CLASS LEVEL OF ALLERGEN SPECIFIC ANTIBODY <0.35 0 ABSENT/UNDE TECTABLE 0.35-0.70 1 LOW LEVEL 0.71-3.50 2 MODERATE LEVEL 3.51-17.5 3 HIGH LEVEL 17.6-50.0 4 VERY HIGH LEVEL 51-100 5 VERY HIGH LEVEL >100 6 VERY HIGH LEVEL In food allergy, circulating IgE antibodies may remain undetectabl e despite a convincing clinical history because these antibodies may be directed towards allergens that are revealed or altered during industrial processing, cooking or digestion and therefore do not exist in the original food for which the patient is tested. [facility] Allergy Testing AllergenStormy.WH 22.90 kunits/L 01/11 Result Comment: INTERPRETAT ION(S): KU/L CLASS LEVEL OF ALLERGEN SPECIFIC ANTIBODY <0.35 0 ABSENT/UNDE TECTABLE 0.35-0.70 1 LOW LEVEL 0.71-3.50 2 MODERATE LEVEL 3.51-17.5 3 HIGH LEVEL 17.6-50.0 4 VERY HIGH LEVEL 51-100 5 VERY HIGH LEVEL >100 6 VERY HIGH LEVEL In food allergy, circulating IgE antibodies may remain undetectabl e despite a convincing clinical history because these antibodies may be directed towards allergens that are revealed or altered during industrial processing, cooking or digestion and therefore do not exist in the original food for which the patient is tested. [facility] Allergy Testing AllergenVale.WH 28.30 kunits/L 01/11 Result Comment: INTERPRETAT ION(S): KU/L CLASS LEVEL OF ALLERGEN SPECIFIC ANTIBODY <0.35 0 ABSENT/UNDE TECTABLE 0.35-0.70 1 LOW LEVEL 0.71-3.50 2 MODERATE LEVEL 3.51-17.5 3 HIGH LEVEL 17.6-50.0 4 VERY HIGH LEVEL 51-100 5 VERY HIGH LEVEL >100 6 VERY HIGH LEVEL In food allergy, circulating IgE antibodies may remain undetectabl e despite a convincing clinical history because these antibodies may be directed towards allergens that are revealed or altered during industrial processing, cooking or digestion and therefore do not exist in the original food for which the patient is tested. [facility] Allergy Testing Allergen, Payal mcnulty.WH 28.70 kunits/L 01/11 Result Comment: INTERPRETAT ION(S): KU/L CLASS LEVEL OF ALLERGEN SPECIFIC ANTIBODY <0.35 0 ABSENT/UNDE TECTABLE 0.35-0.70 1 LOW LEVEL 0.71-3.50 2 MODERATE LEVEL 3.51-17.5 3 HIGH LEVEL 17.6-50.0 4 VERY HIGH LEVEL 51-100 5 VERY HIGH LEVEL >100 6 VERY HIGH LEVEL In food allergy, circulating IgE antibodies may remain undetectabl e despite a convincing clinical history because these antibodies may be directed towards allergens that are revealed or altered during industrial processing, cooking or digestion and therefore do not exist in the original food for which the patient is tested. [facility] Allergen, Usha Aguirre.WH 6.83 kunits/L 01/11 Result Comment: INTERPRETAT ION(S): KU/L CLASS LEVEL OF ALLERGEN SPECIFIC ANTIBODY <0.35 0 ABSENT/UNDE TECTABLE 0.35-0.70 1 LOW LEVEL 0.71-3.50 2 MODERATE LEVEL 3.51-17.5 3 HIGH LEVEL 17.6-50.0 4 VERY HIGH LEVEL 51-100 5 VERY HIGH LEVEL >100 6 VERY HIGH LEVEL In food allergy, circulating IgE antibodies may remain undetectabl e despite a convincing clinical history because these antibodies may be directed towards allergens that are revealed or altered during industrial processing, cooking or digestion and therefore do not exist in the original food for which the patient is tested. [facility] Allergen, Mitchel White.WH 62.00 kunits/L 01/11 Result Comment: INTERPRETAT ION(S): KU/L CLASS LEVEL OF ALLERGEN SPECIFIC ANTIBODY <0.35 0 ABSENT/UNDE TECTABLE 0.35-0.70 1 LOW LEVEL 0.71-3.50 2 MODERATE LEVEL 3.51-17.5 3 HIGH LEVEL 17.6-50.0 4 VERY HIGH LEVEL 51-100 5 VERY HIGH LEVEL >100 6 VERY HIGH LEVEL In food allergy, circulating IgE antibodies may remain undetectabl e despite a convincing clinical history because these antibodies may be directed towards allergens that are revealed or altered during industrial processing, cooking or digestion and therefore do not exist in the original food for which the patient is tested. [facility] Allergen, Rasta Grass.WH 35.90 kunits/L 01/11 Result Comment: INTERPRETAT ION(S): KU/L CLASS LEVEL OF ALLERGEN SPECIFIC ANTIBODY <0.35 0 ABSENT/UNDE TECTABLE 0.35-0.70 1 LOW LEVEL 0.71-3.50 2 MODERATE LEVEL 3.51-17.5 3 HIGH LEVEL 17.6-50.0 4 VERY HIGH LEVEL 51-100 5 VERY HIGH LEVEL >100 6 VERY HIGH LEVEL In food allergy, circulating IgE antibodies may remain undetectabl e despite a convincing clinical history because these antibodies may be directed towards allergens that are revealed or altered during industrial processing, cooking or digestion and therefore do not exist in the original food for which the patient is tested. [facility] Allergen, Hungarian Thistle.WH 24.30 kunits/L 01/11 Result Comment: INTERPRETAT ION(S): KU/L CLASS LEVEL OF ALLERGEN SPECIFIC ANTIBODY <0.35 0 ABSENT/UNDE TECTABLE 0.35-0.70 1 LOW LEVEL 0.71-3.50 2 MODERATE LEVEL 3.51-17.5 3 HIGH LEVEL 17.6-50.0 4 VERY HIGH LEVEL 51-100 5 VERY HIGH LEVEL >100 6 VERY HIGH LEVEL In food allergy, circulating IgE antibodies may remain undetectabl e despite a convincing clinical history because these antibodies may be directed towards allergens that are revealed or altered during industrial processing, cooking or digestion and therefore do not exist in the original food for which the patient is tested. [facility] Allergen, Birch.WH 32.50 kunits/L 01/11 Result Comment: INTERPRETAT ION(S): KU/L CLASS LEVEL OF ALLERGEN SPECIFIC ANTIBODY <0.35 0 ABSENT/UNDE TECTABLE 0.35-0.70 1 LOW LEVEL 0.71-3.50 2 MODERATE LEVEL 3.51-17.5 3 HIGH LEVEL 17.6-50.0 4 VERY HIGH LEVEL 51-100 5 VERY HIGH LEVEL >100 6 VERY HIGH LEVEL In food allergy, circulating IgE antibodies may remain undetectabl e despite a convincing clinical history because these antibodies may be directed towards allergens that are revealed or altered during industrial processing, cooking or digestion and therefore do not exist in the original food for which the patient is tested. Performed by: [facility] [address] [place] [address] [facility] Infectio us Disease HIV-1/O/2. EPI NON-REAC TIVE 11/28 Result Comment: INTERPRETAT ION(S): This method is a screening procedure for the detection of HIV p24 Antigen and Antibodies to HIV-1, including Group O, and/or HIV-2. NON-REACTIV E: HIV-1 antigen and HIV-1 / HIV-2 antibodies were not detected. No laboratory evidence of HIV infection. A negative test results does not exclude the possibility of exposure to or infection with HIV. HIV antibodies and/or p24 antigen may be undetectabl e in some stages of the infection and in some clinical conditions. If acute HIV infection is suspected, consider submitting another specimen to a reference laboratory for HIV-1 RNA. SCREEN REACTIVE - CONFIRMATIO N TO FOLLOW: Possible presence of HIV-1 antibodies, HIV-2 antibodies and/or HIV-1 p24 antigen. Specimen will reflex to the confirmatio n testing that fulfills the Center for Disease Control and Prevention' s HIV diagnostic algorithm. Refer to [facility] Lab Guide for additional information : [email or web address] Testing performed by Michael mcgill. Performed by: Epidemiolog y Laboratory Service [facility] Bldg [address] [place] [id number] [facility] Vital Signs Combined list of inpatient and outpatient Vital Signs from Department of Defense and Veterans Affairs, ranging from 12 months to all on record, depending upon the facility. Vital Sign Value Date Comments Source Systolic Blood Pressure 113mm[Hg] 12/27/2020 15:50:00 Ambulatory Pharmacy Diastolic Blood Pressure 68mm[Hg] 12/27/2020 15:50:00 Ambulatory Pharmacy Mean Arterial Pressure, Calc 83mm[Hg] 12/27/2020 15:50:00 Ambulatory P harmacy Peripheral Pulse Rate 85bpm 12/27/2020 15:50:00 Ambulatory Pharmacy Respiratory Rate 16br/min 12/27/2020 15:50:00 Ambulatory Pharmacy Temperature Oral 37.3Cel 12/27/2020 15:50:00 Ambulatory Pharmacy BP Site 12/27/2020 15:50:00 [facility] Pharmacy Blood Pressure Manual 12/27/2020 15:50:00 Ambulatory Pharmacy Systolic Blood Pressure 109mm[Hg] 01/11/2021 15:01:00 Ambulatory Pharmacy Diastolic Blood Pressure 69mm[Hg] 01/11/2021 15:01:00 Ambulatory Pharmacy Mean Arterial Pressure, Calc 82mm[Hg] 01/11/2021 15:01:00 Ambulatory P harmacy Peripheral Pulse Rate 83bpm 01/11/2021 15:01:00 Ambulatory Pharmacy Respiratory Rate 16br/min 01/11/2021 15:01:00 Ambulatory Pharmacy Temperature Oral 36.7Cel 01/11/2021 15:01:00 Ambulatory Pharmacy BP Site 01/11/2021 15:01:00 [facility]ul [facility] Pharmacy Blood Pressure Manual 01/11/2021 15:01:00 Ambulatory Pharmacy Systolic Blood Pressure 123mm[Hg] 01/02/2021 13:49:00 Ambulatory Pharmacy Diastolic Blood Pressure 83mm[Hg] 01/02/2021 13:49:00 Ambulatory Pharmacy Mean Arterial Pressure, Calc 96mm[Hg] 01/02/2021 13:49:00 Ambulatory P harmacy Peripheral Pulse Rate 80bpm 01/02/2021 13:49:00 Ambulatory Pharmacy Respiratory Rate 16br/min 01/02/2021 13:49:00 Ambulatory Pharmacy Temperature Oral 36.0Cel 01/02/2021 13:49:00 Ambulatory Pharmacy BP Site 01/02/2021 13:49:00 [facility]ul [facility] Pharmacy Blood Pressure Manual 01/02/2021 13:49:00 Ambulatory Pharmacy Encounters Combined list of: 1) Encounters from Department of Veterans Affairs facilities going back up to thelast 18 months. 2) Encounters from the Department of Defense facilities going back up to 280 months. Location Location Details Encounter Type Encounter Number Reason For Visit Attending Provider ADM Date DC Date Status Disposition Source [place] OUTPATIENT [id number] [facility] RPP 1300 ALAN MONTANO P 07/18 Released w/o Limitations [place] Hearing Conservat ion) OUTPATIENT [id number] REFEREN CE/OCC HLTH PE AUDIO.. KARON BRUNO 07/19 Released w/o Limitations [place]) OUTPATIENT [id number] PRP JAIME Tomlin 09/28 Released w/o Limitations [place] [employer]) OUTPATIENT [id number] FIDE SERNA ORESTES W 12/05 Released w/o Limitations [employer](P er [facility]) [employer] [facility]) OUTPATIENT [id number] rts SPRINGBonnie JOSSELINE Lynn 12/31 Released w/o Limitations [employer]([facility]) [employer] [facility]) OUTPATIENT [id number] PHA REINALDOMAEGAN TONIA Bonnie 02/21 Released w/o Limitations [employer](P [facility]) [facility]) OUTPATIENT [id number] FLU-LIK E SYMPTOM S ANNIKA FRANCOISO M 05/07 Sick at Home/Quarter s [facility](P [facility]) [facility]) OUTPATIENT [id number] Notes Entered by: PRASANTH GALVEZ 29 Jan 2012 0927 ------- ------- ------- ------- -- Return From Deploym ent/TDY DAMIEN HUFFMAN 01/28 Released w/o Limitations [facility](P er [facility]) [facility]) OUTPATIENT [id number] RACHNA OLIVAREZ 06/02 Released w/o Limitations [facility]) [facility]) OUTPATIENT [id number] Notes Entered by: KADEN ORTIZ 02 Jun 2012 1051 ------- ------- ------- ------- -- KADEN KERR 06/02 Released w/o Limitations [facility]) [facility]) OUTPATIENT [id number] DESIREE PATEL 06/10 Released w/o Limitations [facility](F light Medicin e) [facility]) TELE CONSULT [id number] Notes Entered by: SONA NICHOLS 14 Feb 2013 1432 ------- ------- ------- ------- -- SONA LOUISE 02/14 Referred for Appointment [employer]([facility]) [employer] [facility]) OUTPATIENT [id number] [place] PAUL HUDDLESTON V 03/02 Released w/o Limitations [employer](P er [facility]) [employer]([facility]) OUTPATIENT [id number] RACHNA OLIVAREZ 06/09 Released w/o Limitations [employer]([facility]) [employer]([facility] Medicine) OUTPATIENT [id number] TAVON WEBER 06/17 Released w/o Limitations [employer](F light Medicin e) [employer]([facility]) OUTPATIENT [id number] Notes Entered by: BEAU MCCALLUM 31 May 2014 0830 ------- ------- ------- ------- -- Hearing Conserv ation ZEV ZAMORA 05/30 Released w/o Limitations [employer]([facility]) [employer]([facility]) OUTPATIENT [id number] [facility] health exam KARON HARTMANN 06/15 Released w/o Limitations [employer]([facility] Flight Medicin e Clinic) [employer]([facility]) OUTPATIENT [id number] Notes Entered by: VASILE WALSH 27 Jun 2014 1027 ------- ------- ------- ------- -- TB Risk Assessm VASILE Lemus 06/27 Released w/o Limitations [employer]([facility]) [employer]([facility] Cell) OUTPATIENT [id number] Notes Entered by: Rod VIVEROS 29 Jun 2014 1316 ------- ------- ------- ------- -- ADMIN FIDE CARRASCONORI Terry 06/29 Released w/o Limitations [employer](P SQU[employer]ES Cell) [employer](Michael n [facility] Team A) TELE CONSULT [id number] Notes Entered by: MIKO NIELSEN 29 Jun 2014 1341 ------- ------- ------- ------- -- CHARLEY Chavarria about quittin g smoking YASIR LARES 06/29 Referred- Emergency Department [employer](O quinn [facility] Team A) [employer](Opt ometry Clinic) OUTPATIENT [id number] Notes Entered by: STEPHANIE CRENSHAW 04 Sep 2014 1507 ------- ------- ------- ------- -- 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 SHAKIRA ROBERTSON 09/04 Released w/o Limitations [employer](O ptometr y Clinic) [employer](Gan demic Virus [facility]) TELE CONSULT [id number] Notes Entered by: KARON GOMEZ 22 Sep 2014 1336 ------- ------- ------- ------- -- In Process ing KARON GOMEZ 09/22 Other Not Elsewhere Classified [employer](P andemic Virus Clinic) [employer](Fam karma Medicine Residency ) OUTPATIENT [id number] Discuss Cyst on L waist area & has lonnie lopez issue wants to discuss KARON HERNÁNDEZ 12/18 Released w/o Limitations [employer](F amily Medicin e Residen cy) [employer](Fam karma Medicine Residency ) OUTPATIENT [id number] DAINA Mackay 04/26 Released w/o Limitations [employer](F amily Medicin e Residen cy) [employer](BOM C Review Clinic) OUTPATIENT [id number] Notes Entered by: Terry TORRES 27 Apr 2015 0827 ------- ------- ------- ------- -- ANGELIC GHOTRA 04/27 Released w/o Limitations [employer](B [facility] Review Clinic) [employer](ENT Clinic) OUTPATIENT [id number] Septal deviati on TI WEEKS 05/03 Released w/o Limitations [employer](E NT Clinic) [employer](Hea ring Conservat ion) OUTPATIENT [id number] ANNUAL OCC AUDIO BRENT ALLEN 05/14 Released w/o Limitations [employer](H earing Conserv ation) [employer](FOM C-Flight and Ops Medicine) OUTPATIENT [id number] OCC PHYSICA ANGELIC HOGAN 06/05 Released w/o Limitations [employer](F OMC-Fli ght and Ops Medicin e) [employer](BO C-Base Operation al Medicine) OUTPATIENT [id number] occ phys fabricMAGUI Presley 03/27 Released w/o Limitations [employer](B OMC-Bas e Operati onal Medicin e) [employer](Hea ring Conservat ion) OUTPATIENT [id number] occ phys @ 1230 CULVERANGEL Sixto 03/27 Released w/o Limitations [employer](H earing Conserv ation) [employer](BO C Review Clinic) OUTPATIENT [id number] Notes Entered by: JAD JAMES 27 May 2016 1408 ------- ------- ------- ------- -- ANNUAL TRI-SER [facility] DAINA WEBB 05/27 Released w/o Limitations [employer](B [facility] Review Clinic) [employer]([facility] karma Medicine Residency ) OUTPATIENT [id number] Rod huber r pain, pain in abdoman lower R YVON REID 08/18 Released w/o Limitations [employer](F amily Medicin e Residen cy) [employer]([facility] karma Medicine Residency ) TELE CONSULT [id number] Notes Entered by: DEB MONTAÑO 01 Sep 2016 1601 ------- ------- ------- ------- -- Test results YVON REID Rod 09/01 [employer](F amily Medicin e Residen cy) [employer](PT Evaluatio n) OUTPATIENT [id number] Pain in left evae PAUL Haney 09/08 Released w/o Limitations [employer](P T Evaluat ion) [employer](PT Treatment ) OUTPATIENT [id number] CORA LOMELI 09/09 Released w/o Limitations [employer](P T Treatme nt) [employer](PT Treatment ) OUTPATIENT [id number] CORA LOMELI 09/16 Released w/o Limitations [employer](P T Treatme nt) [employer](PT Treatment ) OUTPATIENT [id number] CORA LMOELI 09/18 Released w/o Limitations [employer](P T Treatme nt) [employer](PT Treatment ) OUTPATIENT [id number] EDINSON MCKEON 09/23 Released w/o Limitations [employer](P T Treatme nt) [employer](PT Treatment ) OUTPATIENT [id number] CORA LOMELI 09/25 Released w/o Limitations [employer](P T Treatme nt) [employer](Gen eral Surgery Clinic) OUTPATIENT [id number] inguina l hernia GRECIA ROMO I 09/30 Released w/o Limitations [employer](G eneral Surgery Clinic) [employer](PT Treatment ) OUTPATIENT [id number] CORA LOMELI 09/30 Released w/o Limitations [employer](P T Treatme nt) [employer]([facility] ) TELE CONSULT [id number] Notes Entered by: ARPAN MYERS 27 Oct 2016 1326 ------- ------- ------- ------- -- Network Results - General Surgery - Oct 04 DUSTY BEJARANO 10/27 Referred for Appointment [employer](F amily Medicin e Residen cy) [employer](Gen eral Surgery Clinic) OUTPATIENT [id number] S/P Open RIHR dos 10/17 CLARISSAGRECIA Toney 10/29 Released w/o Limitations [employer](G eneral Surgery Clinic) [employer](PT Evaluatio n) OUTPATIENT [id number] SESAYPAUL Morris Terry 11/04 Released w/o Limitations [employer](P T Evaluat ion) [employer]([facility] karma Medicine Residency ) OUTPATIENT [id number] right side abdomen pain TJArturo TRINIDAD J 02/23 Released w/o Limitations [employer](F amily Medicin e Residen ) [employer](Gen eral Surgery Clinic) OUTPATIENT [id number] Lower abdomin al pain, unspeci fied ANTONIO THOMPSON 03/09 Released w/o Limitations [employer](G eneral Surgery Clinic) [facility](Gen eral Surgery Clinic) TELE CONSULT [id number] Notes Entered by: Rod THOMPSON 25 Mar 2017 1051 ------- ------- ------- ------- -- Discuss recent US results ANTONIO THOMPSON 03/25 [facility] [facility](G [facility]) [facility](Hea ring Conservat ion) OUTPATIENT [id number] Audiogr LEONID Ferrer 03/26 Released w/o Limitations [employer](H earing Conserv ation) [facility](BOM C-Base Operation al Medicine) OUTPATIENT [id number] Physica l exam sheet metal CHYNAASHANTI 03/26 Released w/o Limitations [employer](B OMC-Bas e Operati onal Medicin e) [facility](BOM C Review Clinic) OUTPATIENT [id number] Notes Entered by: DIMITRI CHIN 05 Aug 2017 1443 ------- ------- ------- ------- -- DUSTY Shultz 08/05 Released w/o Limitations [employer](B [facility] Review Clinic) [facility](BOM C-Base Operation al Medicine) OUTPATIENT [id number] [facility] MATTI Dumas 03/25 Released w/o Limitations [employer](B OMC-Bas e Operati onal Medicin e) [employer](Hea ring Conservat ion) OUTPATIENT [id number] audiogr am YINA SUJATAArturo Moe 03/26 Released w/o Limitations [employer](H earing Conserv ation) [facility] karma Medicine Residency ) OUTPATIENT [id number] cyst on left side of waist area, best someSONA Morales Lynn 06/02 Released w/o Limitations [employer](F amily Medicin e Residen ) [facility](FMR Procedure Clinic) OUTPATIENT [id number] Sebaceo us cyst PERLITA LARSON Terry 06/18 Released w/o Limitations [employer]( MR Procedu re Clinic) [employer](wa ) OUTPATIENT [id number] Notes Entered by: Terry LEYVA 28 Jun 2018 1519 ------- ------- ------- ------- -- Walk in suture removal . PCM:MALACHI Lew 06/28 Released w/o Limitations [employer]( ) [facility](BO C Review Clinic) OUTPATIENT [id number] Notes Entered by: LOPEZ ROBERT MA TTHEW D 05 Jul 2018 1425 ------- ------- ------- ------- -- Retrain MATTI Torres 07/05 Released w/o Limitations [employer] [facility](B [facility] Review Clinic) [facility](BO C-Base Operation al Medicine) OUTPATIENT [id number] Non Fly [facility] # [phone] COLBY MEJIA 08/02 Released w/o Limitations [employer](B OMC-Bas e Operati onal Medicin e) [facility] [employer](wa ) OUTPATIENT [id number] ANNUAL DOD PHA ROBINSON BAPTISTE P 08/04 Released w/o Limitations [employer]( juan carlos ) [employer]( anna ) OUTPATIENT [id number] cough - NAL MAS ROBINSON BAPTISTE P 10/12 Released w/o Limitations [employer](W juan carlos AD Mei) [employer](BOM C-Base Operation al Medicine) OUTPATIENT [id number] [facility] physica l 061A ORIANA SILVA 03/10 Released w/o Limitations [employer](B OMC-Bas e Operati onal Medicin e) [employer](Hea ring Conservat ion) OUTPATIENT [id number] annual audiogr am DESTINEE WOMACK 03/11 Released w/o Limitations [employer](H earing Conserv ation) [employer]( anna ) TELE CONSULT [id number] Notes Entered by: HANY YARBROUGH 18 Apr 2019 1612 ------- ------- ------- ------- -- PCM Jhonny/OZZIE Cano 04/18 Referred for Appointment [employer]( juan carlos ) [employer] [facility] [id number] follow up tonsill itis and hernia pain ROBINSON BAPTISTE P 04/25 Released w/o Limitations [employer]( juan carlos Mei) [employer] TELE CONSULT [id number] Notes Entered by: KINGSLEY BARRY 10 May 2019 0719 ------- ------- ------- ------- -- U/OZZIE DIEHL 05/10 Released to [employer]( juan carlos AD Mei) [employer](Gen eral Surgery Clinic) OUTPATIENT [id number] Lower abdomin al pain SASTRI, SIRIKANYA CPT 05/26 Released w/o Limitations [employer](G eneral Surgery Clinic) [employer]([facility] Mei) TELE CONSULT [id number] Notes Entered by: HANY YARBROUGH 31 May 2019 1635 ------- ------- ------- ------- -- PCM Barry/Pro file ROBINSON BAPTISTE P 05/31 [employer]( juan carlos ) [employer](BO C-Base Operation al Medicine) OUTPATIENT [id number] [phone] [place] 07/27 Released w/o Limitations [employer](B OMC-Bas e Operati onal Medicin e) [facility](Henry yermo HERMAN Mei) OUTPATIENT [id number] ANNUAL DoD PHA ROBINSON BAPTISTE P 07/28 Released w/o Limitations [employer]( tremainealon utt) [facility](FMR Procedure Clinic) OUTPATIENT [id number] chronic right groin pain s/p hernia repair GUS VU 01/01 Released w/o Limitations [employer](F MR Procedu re Clinic) [facility](FMR Procedure Clinic) OUTPATIENT [id number] right groin prolo MIRELLAGUS SCALES 01/04 Released w/o Limitations [employer](F MR Procedu re Clinic) [facility] Medical [facility](PT Treatment ) OUTPATIENT [id number] Right groin pain PAUL SESAY 01/10 Released w/o Limitations [employer](P T Treatme nt) [facility](FMR Procedure Clinic) OUTPATIENT [id number] right groin prolo MIRELLAGUS 01/12 Released w/o Limitations [employer](F MR Procedu re Clinic) [employer](BOM C-Base Operation al Medicine) OUTPATIENT [id number] [facility] health physicSONA Vega 01/24 Released w/o Limitations [employer](B OMC-Bas e Operati onal Medicin e) [employer](Hea ring Conservat ion) OUTPATIENT [id number] Notes Entered by: Estevan SIMONS 26 Jan 2020 1353 ------- ------- ------- ------- -- AUDIOGR AM ETHEL SIMONS 01/25 Released w/o Limitations [employer](H earing Conserv ation) [employer](FMR Procedure Clinic) OUTPATIENT [id number] prolo right groin GUS VU 02/09 Released w/o Limitations [employer](F MR Procedu re Clinic) [facility](Henry castillo Mei) TELE CONSULT [id number] Notes Entered by: HANY YARBROUGH 02 Mar 2020 1209 ------- ------- ------- ------- -- PCM Ethan rick/EN T Inqubritt y OZZIE HERRERA 03/02 Released to [employer](W juan carlos AD Mei) [facility](ENT Clinic) OUTPATIENT [id number] Snoring GAURAV DEUSTCH P 03/07 Released w/o Limitations [employer](E NT Clinic) [facility](Ops urge Multi-Spe cialty Cl) TELE CONSULT [id number] Notes Entered by: SHWETHA GOMEZ 23 Apr 2020 1343 ------- ------- ------- ------- -- Covid Testing VALENTINO VALDES 04/23 [facility](O psurge Multi-S pecialt y Cl) [facility](ENT Clinic) OUTPATIENT [id number] 1 f/u snoring /scope- covid 4Jan GAURAV DEUTSCH P 04/26 Released w/o Limitations [employer](E NT Clinic) [facility]( yermo utt) TELE CONSULT [id number] Notes Entered by: HANY YARBROUGH 20 Jun 2020 1506 ------- ------- ------- ------- -- PCM Ethan rick/Co OZZIE Harris 06/20 Released to [employer](Yesika rangel Mei) [employer](Henry castillo utt) TELE CONSULT [id number] Notes Entered by: HANY YARBROUGH 25 Jun 2020 1107 ------- ------- ------- ------- -- PCM Ethan rick/Fo yuriw up septopl OZZIE Michaud 06/25 Released to [employer](W juan carlos AD Mei) [employer](Bas e Ops Med Clinic) OUTPATIENT [id number] ALT # . AF ROSIEA YURIDIA JEROME 12/05 Released w/o Limitations [employer](B ase Ops Med Clinic) [facility](Fli ght Med Squires) TELE CONSULT [id number] Notes Entered by: OMAYRA JEROME 05 Dec 2021 1233 ------- ------- ------- ------- -- GSU Remote Form CHAPARRITA MORELAND 12/05 Other Not Elsewhere Classified [facility](F light Med Squires) [employer]([place] [employer] [facility] Team A) TELE CONSULT [id number] Notes Entered by: RORY KWON 09 Dec 2021 1436 ------- ------- ------- ------- -- REF- [facility] [place] DYLAN ESTRADA 12/09 Other Not Elsewhere Classified [facility](H anscom [facility] Team A) [employer](Bas e Ops Med Clinic) OUTPATIENT [id number] PHA only YURIDIA JEROME 04/29 Released w/o Limitations [facility](B ase Ops Med Clinic) [employer] [facility] [id number] AUBRIE KAT 07/06 Discharge Disposition: Home or Self Care -A F- h [employer] Procedures Combined list of: 1) Procedures from Department of [facility] Affairs facilities [facility], not all VA non-surgical procedures are included; 2) All procedures from the Department of Defense facilities. Procedure Procedure Type Code Date Perfomer Comments Sourc e Repair inguinal hernia, sliding, any age Repair inguinal hernia, sliding, any age [id number] 0078C-Off [facility] [id number] 8C-Off [facility] Rhinoplasty 2020 [employer] Colonoscopy Per November 2022 with normal results. [facility] [employer] PURE TONE AUDIOMETRY (THRESHOLD); AIR ONLY 010 [facility] PATIENT EDUCATION, NOT OTHERWISE CLASSIFIED, NON-PHYSICIAN PROVIDER, INDIVIDUAL, PER SESSION 010 [facility] ADMINISTRATION OF PATIENT-FOCUSED HEALTH RISK ASSESSMENT INSTRUMENT (EG, HEALTH HAZARD APPRAISAL) WITH SCORING AND DOCUMENTATION, PER STANDARDIZED INSTRUMENT 023 DoD TELE ASSESS & MGT SRV PROV QUAL NONPHYS HLTH CARE PRO TO EST PAT,PARENT,GUARD NOT ORIG REL ASSESS & MGT SRV PROV W/IN PREV 7 DAYS NOR LEAD ASSESS & MGT SRV/PX W/IN NXT 24 HR/SOON APT;5-10 MIN MED DIS 022 DoD TELE ASSESS & MGT SRV PROV QUAL NONPHYS HLTH CARE PRO TO EST PAT,PARENT,GUARD NOT ORIG REL ASSESS & MGT SRV PROV W/IN PREV 7 DAYS NOR LEAD ASSESS & MGT SRV/PX W/IN NXT 24 HR/SOON APT;5-10 MIN MED DIS 015 DoD BRIEF COMM TECH-BASE SERV,E.G. VIRT CHK-IN,BY PHYS/OTH QUAL HCP,RPT E&M SERV,PROV TO EST PT,NOT ORIG FRM REL E/M SERV PROV W/IN PREV 7DAY NOR LEAD TO E/M SRV/PX W/IN NEXT 24HR/SOON ANSLEY; 5-10 MIN DISC DoD PURE TONE AUDIOMETRY (THRESHOLD); AIR ONLY DoD PURE TONE AUDIOMETRY (THRESHOLD), AUTOMATED; AIR ONLY DoD PURE TONE AUDIOMETRY (THRESHOLD); AIR ONLY 014 DoD PSYCHIATRIC EVALUATION OF HOSPITAL RECORDS, OTHER PSYCHIATRIC REPORTS, PSYCHOMETRIC AND/OR PROJECTIVE TESTS, AND OTHER ACCUMULATED DATA FOR MEDICALDIAGNOSTIC PURPOSES DoD PSYCHIATRIC EVALUATION OF HOSPITAL RECORDS, OTHER PSYCHIATRIC REPORTS, PSYCHOMETRIC AND/OR PROJECTIVE TESTS, AND OTHER ACCUMULATED DATA FOR MEDICALDIAGNOSTIC PURPOSES DoD TELE ASSESS & MGT SRV PROV QUAL NONPHYS TH CARE PRO TO EST PAT,PARENT,GUARD NOT ORIG REL ASSESS & MGT SRV PROV W/IN PREV 7 DAYS NOR LEAD ASSESS & MGT SRV/PX W/IN NXT 24 HR/SOON APT;5-10 MIN MED DIS [facility] QUALIFIED NONPHYSICIAN HEALTH SECTION HOUSEKEEPER ONLINE DIGITAL ASSESSMENT AND MANAGEMENT, FOR AN ESTABLISHED PATIENT, FOR UP TO 7 DAYS, CUMULATIVE TIME DURING THE 7 DAYS; 5-10 MINUTES [facility] QUALIFIED NONPHYSICIAN HEALTH SECTION HOUSEKEEPER ONLINE DIGITAL ASSESSMENT AND MANAGEMENT, FOR AN ESTABLISHED PATIENT, FOR UP TO 7 DAYS, CUMULATIVE TIME DURING THE 7 DAYS; 5-10 MINUTES DoD OSTEOPATHIC MANIPULATIVE TREATMENT (OMT); 1-2 BODY REGIONS INVOLVED DoD INJECTION, INTRALESIONAL; UP TO AND INCLUDING 7 LESIONS [facility] THERAPEUTIC PROCEDURE, 1 OR MORE AREAS, EACH 15 MINUTES; THERAPEUTIC EXERCISES TO DEVELOP STRENGTH AND ENDURANCE, RANGE OF MOTION AND FLEXIBILITY DoD INJECTION, INTRALESIONAL; UP TO AND INCLUDING 7 LESIONS DoD INJECTION(S), ANESTHETIC AGENT(S) AND/OR STEROID; ILIOINGUINAL, ILIOHYPOGASTRIC NERVES [facility] ADMINISTRATION OF PATIENT-FOCUSED HEALTH RISK ASSESSMENT INSTRUMENT (EG, HEALTH HAZARD APPRAISAL) WITH SCORING AND DOCUMENTATION, PER STANDARDIZED INSTRUMENT [facility] BRIEF COMM TECH-BASE SERV,E.G. VIRT CHK-IN,BY PHYS/OTH QUAL HCP,RPT E&M SERV,PROV TO EST PT,NOT ORIG FRM REL E/M SERV PROV W/IN PREV 7DAY NOR LEAD TO E/M SRV/PX W/IN NEXT 24HR/SOON ANSLEY; 5-10 MIN DISC DoD ONLINE ASSESS &MANAG SERV PROVIDE,A QUAL NONPHYS HCP TO AN ESTABLISHED PAT/GUARDIAN,NOT ORIGINAT FRM RELAT ASSESS &MANAG SERV PROVIDE W/IN THE PREV 7 DAYS,USE THE [employer] COMM NETWORK DoD TELE ASSESS & MGT SRV PROV QUAL NONPHYS HLTH CARE PRO TO EST PAT,PARENT,GUARD NOT ORIG REL ASSESS & MGT SRV PROV W/IN PREV 7 DAYS NOR LEAD ASSESS & MGT SRV/PX W/IN NXT 24 HR/SOON APT;5-10 MIN MED DIS DoD PURE TONE AUDIOMETRY (THRESHOLD), AUTOMATED; AIR ONLY DoD ADMINISTRATION OF PATIENT-FOCUSED HEALTH RISK ASSESSMENT INSTRUMENT (EG, HEALTH HAZARD APPRAISAL) WITH SCORING AND DOCUMENTATION, PER STANDARDIZED INSTRUMENT DoD ADMINISTRATION OF PATIENT-FOCUSED HEALTH RISK ASSESSMENT INSTRUMENT (EG, HEALTH HAZARD APPRAISAL) WITH SCORING AND DOCUMENTATION, PER STANDARDIZED INSTRUMENT DoD ADMINISTRATION OF PATIENT-FOCUSED HEALTH RISK ASSESSMENT INSTRUMENT (EG, HEALTH HAZARD APPRAISAL) WITH SCORING AND DOCUMENTATION, PER STANDARDIZED INSTRUMENT DoD REMOVAL OF SUTURES OR HERSON REQUIRING ANESTHESIA (IE, GENERAL ANESTHESIA, MODERATE SEDATION) DoD EXCISION, BENIGN LESION INCLUDING MARGINS, EXCEPT SKIN TAG (UNLESS LISTED ELSEWHERE), TRUNK, ARMS OR LEGS; EXCISED DIAMETER OVER 4.0 CM DoD PURE TONE AUDIOMETRY (THRESHOLD), AUTOMATED; AIR ONLY DoD ADMINISTRATION OF PATIENT-FOCUSED HEALTH RISK ASSESSMENT INSTRUMENT (EG, HEALTH HAZARD APPRAISAL) WITH SCORING AND DOCUMENTATION, PER STANDARDIZED INSTRUMENT DoD ADMINISTRATION OF PATIENT-FOCUSED HEALTH RISK ASSESSMENT INSTRUMENT (EG, HEALTH HAZARD APPRAISAL) WITH SCORING AND DOCUMENTATION, PER STANDARDIZED INSTRUMENT DoD PURE TONE AUDIOMETRY (THRESHOLD); AIR ONLY 017 DoD RE-EVAL,PHYSICAL THERAPY EST PLAN OF CARE,REQ:EXAM,REV,HX & USE,STAND TESTS &MARCE REQ;REV PLAN OF CARE USING STAND PAT ASSESS INSTR &/MARCE ASSESS FUNC OUTCOME TYP,20 MIN SPENT VTOA-TH-VYED W PAT&/FAM [facility] POSTOPERATIVE FOLLOW-UP VISIT, NORMALLY INCLUDED IN THE SURGICAL PACKAGE, INDICATE THAT EVALUATION & MANAGEMENT SERVICE WAS PERFORMED DURING A POSTOPERATIVE PERIOD REASON RELATED ORIGINAL PROCEDURE [facility] REPAIR INITIAL INGUINAL HERNIA, AGE 5 YEARS OR OLDER; REDUCIBLE [facility] APPLICATION OF A MODALITY TO 1 OR MORE AREAS; VASOPNEUMATIC DEVICES [facility] APPLICATION OF A MODALITY TO 1 OR MORE AREAS; VASOPNEUMATIC DEVICES [facility] THERAPEUTIC PROCEDURE, 1 OR MORE AREAS, EACH 15 MINUTES; THERAPEUTIC EXERCISES TO DEVELOP STRENGTH AND ENDURANCE, RANGE OF MOTION AND FLEXIBILITY [facility] APPLICATION OF A MODALITY TO 1 OR MORE AREAS; HOT OR COLD PACKS [facility] APPLICATION OF A MODALITY TO 1 OR MORE AREAS; HOT OR COLD PACKS [facility] THERAPEUTIC PROCEDURE,1 OR MORE AREAS,EACH 15 MINUTES;NEUROMUSCULA R REEDUCATION OF MOVEMENT,BALANCE,RUG CUTTER HELPER RDINATION,KINESTHETI C SENSE,POSTURE,AND/OR PROPRIOCEPTION FOR SITTING AND/OR STANDING ACTIVITIES 017 [facility] THERAPEUTIC PROCEDURE, 1 OR MORE AREAS, EACH 15 MINUTES; THERAPEUTIC EXERCISES TO DEVELOP STRENGTH AND ENDURANCE, RANGE OF MOTION AND FLEXIBILITY 017 [facility] PURE TONE AUDIOMETRY (THRESHOLD), AUTOMATED; AIR ONLY 016 [facility] SCREENING TEST, PURE TONE, AIR ONLY 016 [facility] PURE TONE AUDIOMETRY (THRESHOLD), AUTOMATED; AIR ONLY 016 [facility] OPHTHALMOLOGICAL SERVICES: MEDICAL EXAMINATION AND EVALUATION WITH INITIATION OF DIAGNOSTIC AND TREATMENT PROGRAM; INTERMEDIATE, NEW PATIENT 015 [facility] THERAPEUTIC, PROPHYLACTIC, OR DIAGNOSTIC INJECTION (SPECIFY SUBSTANCE OR DRUG); SUBCUTANEOUS OR INTRAMUSCULAR 010 [facility] Preventive Medicine Administration Of Health Risk Questionnaire Patient-Focused Preventive Medicine Administration Of Health Risk Questionnaire Patient-Focused [id number] ROBINSON BAPTISTE [facility] Preventive Medicine Administration Of Health Risk Questionnaire Patient-Focused Preventive Medicine Administration Of Health Risk Questionnaire Patient-Focused [id number] 019 COLBY MEJIA [facility] Preventive Medicine Administration Of Health Risk Questionnaire Patient-Focused Preventive Medicine Administration Of Health Risk Questionnaire Patient-Focused [id number] [id number] WU, MATTI C DoD Internet Med Svc Qual Nonphys Healthcare Prof Up To 7 Days Estab Patient Internet Med Svc Qual Nonphys Healthcare Prof Up To 7 Days Estab Patient 40348 019 MATTI WASHBURN [facility] Removal Of Sutures Under Anesthesia By Other Surgeon Removal Of Sutures Under Anesthesia By Other Surgeon 68161 019 MALACHI REID [facility] Excision Of Lesion Hips Benign Over 4cm Excision Of Lesion Hips Benign Over 4cm 79776 019 PERLITA LARSON [facility] Threshold Audiogram (Pure Tone) Automated Threshold Audiogram (Pure Tone) Automated 0208T 018 DALILA BRAN [facility] Preventive Medicine Administration Of Health Risk Questionnaire Patient-Focused Preventive Medicine Administration Of Health Risk Questionnaire Patient-Focused [id number] DUSTY BEJARANO [facility] Internet Med Svc Qual Nonphys Healthcare Prof Up To 7 Days Estab Patient Internet Med Svc Qual Nonphys Healthcare Prof Up To 7 Days Estab Patient 39266 018 DUSTY BEJARANO [facility] Preventive Medicine Administration Of Health Risk Questionnaire Patient-Focused Preventive Medicine Administration Of Health Risk Questionnaire Patient-Focused [id number] 018 BRIE ROJO [facility] Threshold Audiogram (Pure Tone) Threshold Audiogram (Pure Tone) 42818 017 ASHANTI CLEMENTE [facility] Threshold Audiogram (Pure Tone) Threshold Audiogram (Pure Tone) 09815 017 LEONID BATES [facility] Physical Therapy Service Re-Evaluation Physical Therapy Service Re-Evaluation 48606 017 PAUL SESAY [facility] Postoperative Visit, Without Charge Postoperative Visit, Without Charge 45781 017 GRECIA ROMO I [facility] Modalities Vasopneumatic Device Modalities Vasopneumatic Device 32266 017 CORA LOMELI Physical Therapy Mobilization Joint Physical Therapy Mobilization Joint 09172 017 CORA LOMELI Physical Therapy: ___ Se ion Segments, 15 Minutes Each Physical Therapy: ___ Session Segments, 15 Minutes Each 38418 017 CORA LOMELI Physical Therapy Neuromuscular Re-education Physical Therapy Neuromuscular Re-education 67103 017 CORA LOMELI Modalities Vasopneumatic Device Modalities Vasopneumatic Device 78796 017 CORA LOMELI [facility] Physical Therapy: ___ Se ion Segments, 15 Minutes Each Physical Therapy: ___ Session Segments, 15 Minutes Each 90482 017 CORA LOMELI Physical Therapy Mobilization Joint Physical Therapy Mobilization Joint 14300 017 CORA LOMELI Physical Therapy Neuromuscular Re-education Physical Therapy Neuromuscular Re-education 75319 017 CORA LOMELI Modalities Cryotherapy Cold Packs Modalities Cryotherapy Cold Packs 76839 017 EDINSON MCKEON Physical Therapy Mobilization Joint Physical Therapy Mobilization Joint 95616 017 EDINSON MCKEON [facility] Physical Therapy Neuromuscular Re-education Physical Therapy Neuromuscular Re-education 38207 017 EDINSON MCKEON Physical Therapy: ___ Se ion Segments, 15 Minutes Each Physical Therapy: ___ Session Segments, 15 Minutes Each 99934 017 EDINSON MCKEON Modalities Cryotherapy Cold Packs Modalities Cryotherapy Cold Packs 90607 017 CORA LOMELI Physical Therapy Mobilization Joint Physical Therapy Mobilization Joint 53618 017 CORA LOMELI Physical Therapy Neuromuscular Re-education Physical Therapy Neuromuscular Re-education 04606 017 CORA LOMELI Physical Therapy: ___ Se ion Segments, 15 Minutes Each Physical Therapy: ___ Session Segments, 15 Minutes Each 39146 017 CORA LOMELI Modalities Cryotherapy Cold Packs Modalities Cryotherapy Cold Packs 26340 017 CORA LOMELI Physical Therapy Mobilization Joint Physical Therapy Mobilization Joint 91390 017 CORA LOMELI [facility] Physical Therapy Neuromuscular Re-education Physical Therapy Neuromuscular Re-education 71982 017 CORA LOMELI [facility] Physical Therapy: ___ Se ion Segments, 15 Minutes Each Physical Therapy: ___ Session Segments, 15 Minutes Each 61250 017 CORA LOMELI [facility] Physical Therapy Neuromuscular Re-education Physical Therapy Neuromuscular Re-education 07091 017 CORA LOMELI Physical Therapy: ___ Se ion Segments, 15 Minutes Each Physical Therapy: ___ Session Segments, 15 Minutes Each 25202 017 CORA LOMELI A isted Exercises For ROM Assisted Exercises For ROM 16680 017 PAUL SESAY Physical Therapy Service Evaluation Low Complexity Physical Therapy Service Evaluation Low Complexity 00863 017 PAUL SESAY Threshold Audiogram (Pure Tone) Automated Threshold Audiogram (Pure Tone) Automated 0208T 016 ANGEL CULVER DoD Audiogram (Screening) Audiogram (Screening) 78906 016 ANGELIC SUÁREZ [facility] Threshold Audiogram (Pure Tone) Automated Threshold Audiogram (Pure Tone) Automated 0208T 016 BRENT ALLEN [facility] Ophthalmological New Patient Start Intermediate Level Care Ophthalmological New Patient Start Intermediate Level Care 19245 015 SHAKIRA ROBERTSON [facility] Non-Physician Phone Call To Patient/Provider Brief (5-10min) Non-Physician Phone Call To Patient/Provider Brief (5-10min) 87716 015 YASIR LARES [facility] Threshold Audiogram (Pure Tone) Threshold Audiogram (Pure Tone) 22492 015 KARON HARTMANN [facility] Threshold Audiogram (Pure Tone) Automated Threshold Audiogram (Pure Tone) Automated 0208T 015 ZEV ZAMORA [facility] Threshold Audiogram (Pure Tone) Threshold Audiogram (Pure Tone) 01608 014 TAVON CRANE [facility] Psychiatric Diagnostic Evaluation Review of Records and Reports Psychiatric Diagnostic Evaluation Review of Records and Reports 19789 013 SONA NICHOLS [facility] Psychiatric Diagnostic Evaluation Review of Records and Reports Psychiatric Diagnostic Evaluation Review of Records and Reports 58177 011 ROGER HERNANDEZ [facility] Threshold Audiogram (Pure Tone) Threshold Audiogram (Pure Tone) 32378 010 KARON BRUNO Patient education, not otherwise cla ified, non-physician provider, individual, per se ion 010 KARON BRUNO [facility] Testing Audiometry Group Testing 04208 010 KARON BRUNO Patient education, not otherwise cla ified, non-physician provider, individual, per se ion 010 ALAN MONTANO Threshold Audiogram (Pure Tone) Automated Threshold Audiogram (Pure Tone) Automated 0208T DESTINEE WOMACK Non-Physician Phone Call To Patient/Provider Brief (5-10min) Non-Physician Phone Call To Patient/Provider Brief (5-10min) 47078 OZIZE HERRERA Internet Med Svc Qual Nonphys Healthcare Prof Up To 7 Days Estab Patient Internet Med Svc Qual Nonphys Healthcare Prof Up To 7 Days Estab Patient 38016 OZZIE HERRERA Preventive Medicine Administration Of Health Risk Questionnaire Patient-Focused Preventive Medicine Administration Of Health Risk Questionnaire Patient-Focused 07885 [facility] [place] Brief communication technology-based service, e.g. virtual check-in, by a physician or other qualified health care profarturo noble who can report evaluation and management services, provided to an established patient, not originating from a related E/M service provided within the previous 7 days nor leading to an E/M service or procedure within the next 24 hours or soonest available appointment; 5-10 minutes of medical discu ion [facility] [place] Nerve Block Ilioinguinal Nerve Block Ilioinguinal 91210 GUS VU Intralesional Injections - Up To Seven Intralesional Injections - Up To Seven 60071 GUS VU Physical Therapy Service Evaluation Low Complexity Physical Therapy Service Evaluation Low Complexity 50969 PAUL SESAY A isted Exercises For ROM Assisted Exercises For ROM [id number] PAUL SESAY Osteopathic Manip Treatment (OMT) 1-2 Body Regions Involved Osteopathic Manip Treatment (OMT) 1-2 Body Regions Involved 66960 GUS VU Internet Med Svc Qual Nonphys Healthcare Prof Up To 7 Days Estab Pt 5-10 Min Internet Med Svc Qual Nonphys Healthcare Prof Up To 7 Days Estab Pt 5-10 Min [id number] OZZIE HERRERA Brief communication technology-based service, e.g. virtual check-in, by a physician or other qualified health care profarturo noble who can report evaluation and management services, provided to an established patient, not originating from a related E/M service provided within the previous 7 days nor leading to an E/M service or procedure within the next 24 hours or soonest available appointment; 5-10 minutes of medical discu ion YURIDIA JEROME MHA Only telephonic assessment; visit lasted 15 minutes. 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 Social History Type Response Date Comment [facility] e Male 06/22/2020 Ambulatory Pharmacy Tobacco Cigarette use: Former-cigarette user. Total years of smoking cigarettes: 2. Other Tobacco use: Yes-current some day other tobacco user (not cigarettes). SM reports current occasional vaping x2 years; SM reports Hx of cigarette smoking x2 years; quit cigarettes Jan 2020. Ambulatory Pharmacy Sexual Orientation Ambula tory Pharmacy Gender identity Ambulator y Pharmacy This section is an empty social history section. DoD Assessment and Plan Combined list of future care activities from Department of Defense and Veterans Affairs facilities (e.g., assessment and plan notes, appointments, orders, and referrals). Additional future care activities may be listed in the Plan of Care section. 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 SM present for virtual encounter. All age/gender specific CPS IAW USPSTF are up to date. ? IMR-?Red for dental; SM informed. Profile- None. +WWQ pending dental. ? This MHA/PHA is for screening purposes only, and is Not to replace a face to face appointment with PCM or other specialty care?if needed. SM was informed that?if there are any?health concerns,?it is the SM's responsibility to schedule an appointment with PCM or specialty?care for evaluation and management. ? ? ? 2.?Chest pain F/U with Cardiology referral for evaluation. Seek immediate medical care/ER for persistent chest pain/pressure > 5 minutes, SOB, L arm pain/numbness, jaw pain/numbness, lightheadedness/nausea/dizziness (if accompanied by other mentioned cardiac symptoms) are noted.?F/U with PCM for increased/worsening chest pain episodes. ? 3.?Palpitations F/U with Cardiology referral for evaluation. Seek immediate medical care/ER for persistent chest pain/pressure > 5 minutes, SOB, L arm pain/numbness, jaw pain/numbness, lightheadedness/nausea/dizziness (if accompanied by other mentioned cardiac symptoms) are noted.?F/U with PCM for increased/worsening chest pain episodes. 4.?Nicotine dependence Nicotine?cessation highly encouraged/advised; F/U with PCM/BHOP?as needed. 5.?Allergic rhinitis Take Fexofenadine, Fluticasone nasal spray. Montelukast, and/or Albuterol inhaler as needed/ as prescribed; continue F/U with PCM for management. ? Yuridia Jerome CTR?AIRCRAFT DETAIL DRAFTSPERSON-[facility] [place] Provider Flight Medicine? [address] [facility] [place] [facility] [phone] ? Extracted from:Title: [facility]: Respiratory symptoms follow-up Author: KATIE ISIDRO NP Date: 01/11/21 1.?Allergic rhinitis Symptoms most likely consistent with allergic etiology? ? cough, mild nasal congestion, post nasal drip, scratchy throat.?No s/sx of current?infection, no fevers. ?Refilled Albuterol, Adelaida, and Flonase. Will add Singulair to daily regimen. RAST panel ordered.?No indication for additional pulmonary work-up at this time.??F/U?for continued symptoms. SM pending PCS to [employer] in 4-6 weeks, may f/u at new duty station if needed. ? Based on today's encounter, No FR, DR or MR, meets retention standards.?No existing profiles in [facility]. ? Ordered: albuterol, 2 puff(s), Inhale, every 4 hr, PRN wheezing, # 8.5 g, 0 total refill(s), Maintenance, 2 puff(s) Inhale every 4 hr,PRN:as needed for wheezing, Pharmacy: [facility] [Not filled] fexofenadine, 1 tab(s), Oral, Daily, PRN allergy symptoms, # 90 tab(s), 3 total refill(s), Maintenance, 1 tab(s) Oral Daily,PRN:as needed for allergy symptoms, Pharmacy: [facility] [Federal Rx: #90 last filled 01/11/21] Allergy Screen Panel 1 [id number] Office Visit Level 4 Est 69404 ? 2.?Otitis externa of left ear Will treat conservatively with topical meds. ?Auralgan?for pain?and?Cipro HC?Otic?x 7 days.??Pt to f/u in 48-72 hours if no improvement in symptoms. ?Pt instructed on proper hygiene and the importance of avoiding?swimming/water?until drainage stops?and symptoms resolve. ?No swabs in ears. ?F/u in?1-2?weeks if symptoms haven't completely resolved. ?RTC immediately for severe pain, fevers/chills, or hearing loss. Ordered: ciprofloxacin-dexamethasone otic, 4 drop(s), Ear-Both, BID, # 7.5 mL, 0 total refill(s), Acute, 4 drop(s) Ear-Both BID, Pharmacy: [facility] [Not filled] Office Visit Level 4 Est 11768 ? Orders: fluticasone nasal, 50 mcg, Nostril-Both, BID, # 16 g, 5 total refill(s), Maintenance, 50 mcg Nostril-Both BID, Pharmacy: [facility] [Federal Rx: #16 last filled 01/11/21] montelukast, 1 tab(s), Oral, every evening, # 90 tab(s), 0 total refill(s), Maintenance, 1 tab(s) Oral every evening, Pharmacy: [facility] [Not filled] Extracted from:Title: Ambulatory Patient Education Author: KATIE ISIDRO NP Date: 01/11/21 Patient Education Materials Follows: Cough, Adult Coughing is a reflex that clears your throat and your airways. Coughing helps to heal and protect your lungs. It is normal to cough occasionally, but a cough that happens with other symptoms or lasts a long time may be a sign of a condition that needs treatment. A cough may last only 2 3 weeks (acute), or it may last longer than 8 weeks (chronic). What are the causes? Coughing is commonly caused by: Breathing in substances that irritate your lungs. A viral or bacterial respiratory infection. Allergies. Asthma. Postnasal drip. Smoking. Acid backing up from the stomach into the esophagus (gastroesophageal reflux). Certain medicines. Chronic lung problems, including COPD (or rarely, lung cancer). Other medical conditions such as heart failure. Follow these instructions at home: Pay attention to any changes in your symptoms. Take these actions to help with your discomfort: Take medicines only as told by your health care provider. ? If you were prescribed an antibiotic medicine, take it as told by your health care provider. Do not stop taking the antibiotic even if you start to feel better. ? Talk with your health care provider before you take a cough suppressant medicine. Drink enough fluid to keep your urine clear or pale yellow. If the air is dry, use a cold steam vaporizer or humidifier in your bedroom or your home to help loosen secretions. Avoid anything that causes you to cough at work or at home. If your cough is worse at night, try sleeping in a semi-upright position. Avoid cigarette smoke. If you smoke, quit smoking. If you need help quitting, ask your health care provider. Avoid caffeine. Avoid alcohol. Rest as needed. Contact a health care provider if: You have new symptoms. You cough up pus. Your cough does not get better after 2 3 weeks, or your cough gets worse. You cannot control your cough with suppressant medicines and you are losing sleep. You develop pain that is getting worse or pain that is not controlled with pain medicines. You have a fever. You have unexplained weight loss. You have night sweats. Get help right away if: You cough up blood. You have difficulty breathing. Your heartbeat is very fast. This information is not intended to replace advice given to you by your health care provider. Make sure you discuss any questions you have with your health care provider. Document Released: 10/03/2011 Document Revised: 09/11/2016 Document Reviewed: 06/13/2015 7digital Interactive Patient Education ? 2019 [employer]. Immunology Allergic Rhinitis, Adult Allergic rhinitis is an allergic reaction that affects the mucous membrane inside the nose. It causes sneezing, a runny or stuffy nose, and the feeling of mucus going down the back of the throat (postnasal drip). Allergic rhinitis can be mild to severe. There are two types of allergic rhinitis: Seasonal. This type is also called hay fever. It happens only during certain seasons. Perennial. This type can happen at any time of the year. What are the causes? This condition happens when the body's defense system (immune system) responds to certain harmless substances called allergens as though they were germs. Seasonal allergic rhinitis is triggered by pollen, which can come from grasses, trees, and weeds. Perennial allergic rhinitis may be caused by: House dust mites. Pet dander. Mold spores. What are the signs or symptoms? Symptoms of this condition include: Sneezing. Runny or stuffy nose (nasal congestion). Postnasal drip. Itchy nose. Tearing of the eyes. Trouble sleeping. Daytime sleepiness. How is this diagnosed? This condition may be diagnosed based on: Your medical history. A physical exam. Tests to check for related conditions, such as: ? Asthma. ? [place] eye. ? Ear infection. ? Upper respiratory infection. Tests to find out which allergens trigger your symptoms. These may include skin or blood tests. How is this treated? There is no cure for this condition, but treatment can help control symptoms. Treatment may include: Taking medicines that block allergy symptoms, such as antihistamines. Medicine may be given as a shot, nasal spray, or pill. Avoiding the allergen. Desensitization. This treatment involves getting ongoing shots until your body becomes less sensitive to the allergen. This treatment may be done if other treatments do not help. If taking medicine and avoiding the allergen does not work, new, stronger medicines may be prescribed. Follow these instructions at home: Find out what you are allergic to. Common allergens include smoke, dust, and pollen. Avoid the things you are allergic to. These are some things you can do to help avoid allergens: ? Replace carpet with wood, tile, or vinyl rebekah. Carpet can trap dander and dust. ? Do not smoke. Do not allow smoking in your home. ? Change your heating and air conditioning filter at least once a month. ? During allergy season: ? Keep windows closed as much as possible. ? Plan outdoor activities when pollen counts are lowest. This is usually during the evening hours. ? When coming indoors, change clothing and shower before sitting on furniture or bedding. Take lnin-xrf-xaiyczf and prescription medicines only as told by your health care provider. Keep all follow-up visits as told by your health care provider. This is important. Contact a health care provider if: You have a fever. You develop a persistent cough. You make whistling sounds when you breathe (you wheeze). Your symptoms interfere with your normal daily activities. Get help right away if: You have shortness of breath. Summary This condition can be managed by taking medicines as directed and avoiding allergens. Contact your health care provider if you develop a persistent cough or fever. During allergy season, keep windows closed as much as possible. This information is not intended to replace advice given to you by your health care provider. Make sure you discuss any questions you have with your health care provider. Document Released: 12/30/2001 Document Revised: 05/14/2017 Document Reviewed: 05/14/2017 7digital Interactive Patient Education ? 2019 [employer] Extracted from:Title: Audiology Note Author: MANDIE NEAL Date: 01/10/21 1.?EXAM, FORMAL OCCUPATIONAL HEALTH PROGRAM INCLUDING HEARING CONSERVATION PROGRAM, PERIODIC FOR CONTINUED SURVEILLANCE FOR OCCUPATIONAL WORKPLACE EXPOSURE Ordered: Compre Audiometry Threshold Eval Sp Recognij 95656 Distrt Prod Evokd Otoacoustic Emsns Comp/Dx Eval 06315 Tympanometry and Reflex Threshold Measurements 84558 Unlisted Evaluation and Management Service 12999 ? Extracted from:Title: [facility]- worsening cough Author: YESENIA ROSA DO Date: 01/02/21 1.?Cough Likely viral/reactive. - Will obtain CXR to initiate w/u and assess for underlying lobar infiltrates. - Recommend f/u with PCM and PFTs. 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 - Albuterol inhaler prn - OK to continue OTC meds- mucinex, antihistamine, saline nasal rinse, and flonase. - Not currently smoking, recommend continuing?abstinence. - Message sent to PCM Julia so she is aware and can help facilitate PFTs ? Ordered: albuterol, 2 puff(s), Inhale, every 4 hr, PRN shortness of breath or wheezing, # 1 EA, 2 total refill(s), Maintenance, 2 puff(s) Inhale every 4 hr,PRN:shortness of breath or wheezing, Pharmacy: [facility] [Federal Rx: #8.5 last filled 01/02/21] Office Visit Level 3 Est 29722 ? 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 ?I was immediately?available in the clinic for consultation during the encounter. ?The case WAS discussed with me [id number] at the time of the encounter. ?I agree with the assessment and plan for this encounter as described above.? Extracted from:Title: Occ health physical Author: ROBBIE GONZALEZ DO Date: 12/27/20 EXAM, FORMAL OCCUPATIONAL HEALTH PROGRAM INCLUDING HEARING CONSERVATION PROGRAM, PERIODIC FOR CONTINUED SURVEILLANCE FOR OCCUPATIONAL WORKPLACE EXPOSURE Ordered: Administration,Pt-Foc Hlth Rsk Asses Inst 87635 Periodic Comp Preventive Med 18 to 39 years Est 73308 ? Member has completed required medical surveillance screenings and medical evaluation for employment.? Required medical surveillance items updated in [facility].? PT meets medical criteria for job requirement. Pt is cleared for duty without any medical restrictions.? ? 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 Information obtained from review of [facility], [place], and [facility]. PHA review complete.??MHA reviewed. PHAQ reviewed in [facility]. Medical record and [id number] reviewed and updated. 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 No MR/DR/FR. Member meets MSD at this time. F/u with PCM as needed. Ordered: Administration,Pt-Foc Hlth Rsk Asses Inst 69720 Unlisted E&M Service 29877 ? 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 Ordered: Administration,Pt-Foc Hlth Rsk Asses Inst 46071 Unlisted E&M Service 68391 ? 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 Member is NOT PRAP/AUoF.? MHA reviewed with patient. No concerns identified as noted above.? Follow up with PCM as needed.? Next MHA in 1 year. ? This 5 minute medical discussion was completed using telephone communication between provider and patient. ? ? ? Ordered: Administration,Pt-Foc Hlth Rsk Asses Inst 29877 Brief Comm Tech-Based Svc, Virt, Phys, Est Pt; 5-10 Min Med Dis G2012 Unlisted E&M Service 63618 ? Follow Up With When Contact Information Follow up with primary care provider Only if needed Additional Instructions: Readiness Follow Up No qualifying data available. 05/02/2024 Ambulatory Pharmacy Functional Status Combined list of recent functional and cognitive assessments recorded at [facility] and [facility] (VA).VA Functional [place] Measurement (FIM) Scale: 1 = Total Assistance (Subject = 0% +), 2 = Maximal Assistance (Subject = 25% +), 3 = Moderate Assistance (Subject = 50% +), 4 = Minimal Assistance (Subject = 75% +), 5 = Supervision, 6 = Modified [place] (Device), 7 = Complete [place] (Timely, Safely). Assessment Date/Time Source Assessment Type Assessment Skill Assessment Score Assessment Details No data available for this section
== END 2024-05-02 09:57 | disposition home or self-care (01) ==
PROVIDERS: PCP Family Medicine; Visit Provider Family Medicine
DX: Z00.00 Encounter for general adult medical examination without abnormal findings (principal); R07.89 Other chest pain; K64.9 Unspecified hemorrhoids

== ENCOUNTER → 2024-05-02 08:57 | Outpatient (BNVA) | payer OTHER, SELFPAY | PROVIDERS: PCP Family Medicine; Visit Provider Family Medicine | DX: Z00.01 Encounter for general adult medical examination with abnormal findings (principal); R07.89 Other chest pain; K64.9 Unspecified hemorrhoids | CPT/HCPCS: 96127 ==

== ENCOUNTER 2024-05-02 10:09 | Outpatient (REF) | payer OTHER, SELFPAY ==
--- OUTSIDE RECORDS SUMMARY | 2024-05-02 11:32 | XMS_ITS | Continuity of Care Document ---
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 DoD no psychiatric diagnosis or condition on axis I Inactive Condition DoD upper respiratory infection Inactive Condition [facility] visit for: administrative purpose Inactive Condition DoD visit for: services physical Active Condition DoD visit for: screening exam Active Condition DoD visit: ears/hearing exam for hearing conservation, treatment Active Condition DoD visit for: services physical accession Active Condition [facility] visit for: occupational health / fitness exam Active Condition DoD Allergic rhinitis Active Condition [facility] Chest pain Active Condition [facility] Inguinal hernia Active Condition [facility] Lower abdominal pain Active Condition [facility] Nicotine dependence Active Condition [facility] Pain in left shoulder Active Condition [facility] Palpitations Active Condition [facility] Medications Combined list of outpatient medications from [...] of breath or wheezing , Pharmacy : [facility] Inhala tion (breat he in) Discont inued 01/11/2021 1.0 [facility] albuterol 90 mcg/inh aerosol inhaler 2 puff(s), Inhale, every 4 hr, PRN wheezing , # 8.5 g, 0 total refill(s ), Maintena nce, 2 puff(s) Inhale every 4 hr,PRN:a s needed for wheezing , Pharmacy : [facility] Inhala tion (breat he in) Ordered 8.5 0078CO [facility] Adelaida 180 mg oral tablet 1 tab(s), Oral, Daily, PRN allergy symptoms , # 90 tab(s), 3 total refill(s ), Maintena nce, 1 tab(s) Oral Daily,NH N:as needed for allergy symptoms , Pharmacy : [facility] Oral (given by mouth) [facility] Ciprodex 0.3%-0.1% otic suspension 4 drop(s), Ear-Both , BID, # 7.5 mL, 0 total refill(s ), Acute, 4 drop(s) Ear-Both BID, Pharmacy : [facility] Both ears Complet ed 01/16/2021 7.5 0078O [facility] fexofenadin e 180 mg oral tablet 1 tab(s), Oral, Daily, PRN allergy symptoms , # 90 tab(s), 3 total refill(s ), Maintena nce Oral (given by mouth) Ordered 90.0 0310C[facility] [employer] Flonase 50 mcg/inh nasal spray 50 mcg, Nostril- Both, BID, # 16 g, 5 total refill(s ), Maintena nce, 50 mcg Nostril- Both BID, Pharmacy : [facility] Nostri l-Both (into the nose) Ordered 16.0 8CO [facility] HYDROcodone -acetaminop hen 5mg-325mg oral tablet 1 tab(s), Oral, every 4 hr, PRN as needed for pain, 0 total refill(s ), Acute Oral (given by mouth) Discont inued 12/19/[address] [place] [address] inhaler spacer (mani aerosol cloud enhancer) 1 EA, N/A, As Directed , # 1 EA, 0 total refill(s ), Maintena nce, Supply Not Applic able Discont inued 01/11/2021 1.0 0078C-[facility] methylPREDN ISolone 4 mg oral tablet 1 tab(s), Oral, As Directed , # 100 tab(s), 0 total refill(s ), Acute Oral (given by mouth) Discont inued 12/19/2020 100.0 0078C-[facility] montelukast Daily, 0 total refill(s ), Maintena nce Ordered 0310C-A [facility] [employer] multivitami n adult, oral tablet Oral, Daily, 0 total refill(s ), Maintena nce Oral (given by mouth) Ordered 0310C-A [facility] [employer] Singulair 10 mg oral tablet 1 tab(s), Oral, every evening, # 90 tab(s), 0 total refill(s ), Maintena nce, 1 tab(s) Oral every evening, Pharmacy : [facility] Oral (given by mouth) Discont inued 04/28/2023 90.0 0078CO [facility] tadalafil Oral, Daily, 0 total refill(s ), Maintena nce Oral (given by mouth) Ordered 0310C-A F[facility]C-[facility]t [facility] [employer] Allergies, Adverse Reactions, Alerts Combined list of allergies from Department of Defense and Veterans Affairs facilities. It does not include entries that were removed or entered in error. Substance Category Reaction Severity Reaction type Status Date Reported Comments Source No Known Allergies Drug allergy (disorder) active 0 [facility] Allergy to substance Unknown Unknown Active [facility] Seasonal Allergies Allergy to substance Unknown Unknown Active [facility] Immunizations Combined list of available immunizations from the Department of Defense and Veterans Affairs facilities. Immunization Series Date Given Administered By Site Reaction Lot Number CVX Code Drug Gravedigger Status Comments Source Influenza, injectable, quadrivalent, preservative free 0 2021 [id number] [employer] (SKB) complet ed Influenza , injectabl e, quadrival ent, preservat preethi free DoD Influenza, injectable, quadrivalent, preservative free 0 2020 [id number] 150 [facility] (SKB) complet ed Influenza , injectabl e, [...] mL DoD influenza, injectable, quadrivalent- pf 2019 [id number] 077 150 [employer] complet ed influenza , injectabl e, quadrival ent-pf 03/02/20 Given Ambulat ory Pharmac y influenza, injectable, quadrivalent- pf 2019 [id number] 077 150 [employer] complet ed influenza , injectabl e, quadrival ent-pf 03/02/20 Given Ambulat ory Pharmac y Influenza, injectable, quadrivalent, preservative free 1 2019 [id number] 077 150 [employer] (SEQ) complet ed Influenza , injectabl e, quadrival ent, preservat preethi free DoD tetanus-dipht h toxoids (Td) adult/adol 2019 [id number] 09 sanofi pasteur complet ed tetanus-d iphth toxoids (Td) adult/ado l 07/28/19 Given Ambulat ory Pharmac y tetanus-dipht h toxoids (Td) adult/adol 2019 [id number] 09 sanofi pasteur complet ed tetanus-d iphth toxoids (Td) adult/ado l 07/28/19 Given Ambulat ory Pharmac y tetanus and diphtheria toxoids, adsorbed, preservative free, for adult use (2 Lf of tetanus toxoid and 2 Lf of diphtheria toxoid) 2 2019 [id number] 09 Sanofi Pasteur (PMC) complet ed tetanus [...] preethi DoD measles/mumps /rubella virus vaccine 2018 [id number] 03 Merck & Company Inc complet ed measles/m umps/rube lla virus vaccine 05/26/18 Given Ambulat ory Pharmac y measles/mumps /rubella virus vaccine 2018 [id number] 03 Merck & Company Inc complet ed measles/m umps/rube lla virus vaccine 05/26/18 Given Ambulat ory Pharmac y measles, mumps and rubella virus vaccine 1 2018 [id number] 03 Merck (MSD) complet ed measles, mumps [...] quadrivalent, preservative free 10 2017 [id number] 150 [facility] (B) complet ed Influenza , injectabl e, [...] quadrivalent, preservative free 9 2016 [id number] [facility] complet ed Influenza , injectabl e, quadrival ent, preservat preethi free DoD influenza, seasonal, injectable-pf 2015 [id number] 140 Se[employer] complet ed influenza , seasonal, injectabl e-pf 01/23/16 Given Ambulat ory Pharmac y influenza, seasonal, injectable-pf 2015 [id number] 140 Se[employer] complet ed influenza , seasonal, injectabl e-pf 01/23/16 Given Ambulat ory Pharmac y human papilloma virus vaccine, quadrivalent 0 2015 62 () Not Given human papilloma virus vaccine, quadrival ent DoD Influenza, seasonal, injectable, preservative free 1 2015 [id number] 140 Se[employer]irus (SEQ) comple t ed Influenza , seasonal, injectabl e, preservat preethi free DoD influenza, live, intranasal,qu adrivalent 2014 [id number] 149 Medimmune Inc comple t ed influenza , live, intranasa l,quadriv alent 01/31/15 Given Ambulat ory Pharmac y influenza, live, intranasal,qu adrivalent 2014 [id number] 149 Medimmune Inc comple t ed influenza , live, intranasa l,quadriv alent 01/31/15 Given Ambulat ory Pharmac y influenza, live, intranasal, quadrivalent 7 2014 [id number] 149 MedImmune, Inc. (MED) complet ed influenza , live, intranasa l, quadrival ent DoD anthrax vaccine 2014 [id number] 24 Emergent [employer] complet ed anthrax vaccine 05/29/14 Given Ambulat ory Pharmac y anthrax vaccine 2014 [id number] 24 [employer] complet ed anthrax vaccine 05/29/14 Given Ambulat ory Pharmac y anthrax vaccine 4 2014 [id number] 24 [employer] [place] (MIP) complet ed anthrax vaccine DoD influenza, live, intranasal,qu adrivalent 2013 [id number] 149 Medimmune Inc comple t ed influenza , live, intranasa l,quadriv alent 02/09/14 Given Ambulat ory Pharmac y influenza, live, intranasal,qu adrivalent 2013 [id number] 149 Medimmune Inc comple t ed influenza , live, intranasa l,quadriv alent 02/09/14 Given Ambulat ory Pharmac y influenza, live, intranasal, quadrivalent 6 2013 [id number] 149 [employer] Inc. (MED) complet ed influenza , live, intranasa l, quadrival ent DoD anthrax vaccine 2013 [id number] 24 [employer] complet ed anthrax vaccine 10/11/13 Given Ambulat ory Pharmac y anthrax vaccine 2013 [id number] 24 [employer] complet ed anthrax vaccine 10/11/13 Given Ambulat ory Pharmac y anthrax vaccine 3 2013 [id number] 24 [employer] [place] (MIP) complet ed anthrax vaccine DoD anthrax vaccine 2013 [id number] 24 [employer] complet ed anthrax vaccine 04/25/13 Given Ambulat ory Pharmac y anthrax vaccine 2013 [id number] 24 [employer] complet ed anthrax vaccine 04/25/13 Given Ambulat ory Pharmac y anthrax vaccine 2 2013 [id number] 24 [employer] [place] (MIP) complet ed anthrax vaccine DoD typhoid Vi capsular polysaccharid e vac 2012 [id number] 101 sanofi pasteur complet ed typhoid Vi capsular polysacch aride vac 03/24/13 Given Ambulat ory Pharmac y vaccinia (smallpox) vaccine 2012 VV04-00 3-A 75 [employer] complet ed vaccinia (smallpox ) vaccine 03/24/13 Given Ambulat ory Pharmac y Human Papillomaviru s,quadrivalen t(HPV4) 2012 [id number] 62 Merck & Company Inc complet ed Human Papilloma virus,izabella drivalent (HPV4) 03/24/13 Given Ambulat ory Pharmac y anthrax vaccine 2012 [id number] 24 [employer] complet ed anthrax vaccine 03/24/13 Given Ambulat ory Pharmac y typhoid Vi capsular polysaccharid e vac 2012 J1201 101 sanofi pasteur complet ed typhoid Vi capsular polysacch aride vac 03/24/13 Given Ambulat ory Pharmac y vaccinia (smallpox) vaccine 2012 VV04-00 3-A 75 [employer] [facility] complet ed vaccinia (smallpox ) vaccine 03/24/13 Given Ambulat ory Pharmac y anthrax vaccine 2012 [id number] 24 [employer] complet ed anthrax vaccine 03/24/13 Given Ambulat ory Pharmac y Human Papillomaviru s,quadrivalen t(HPV4) 2012 [id number] 62 Merck & Company Inc complet ed Human Papilloma virus,izabella drivalent (HPV4) 03/24/13 Given Ambulat ory Pharmac y anthrax vaccine 1 2012 [id number] 24 [employer] [place] ([facility]) complet ed anthrax vaccine DoD human papilloma virus vaccine, quadrivalent 0 2012 [id number] 62 Merck (MSD) complet ed human papilloma virus vaccine, quadrival ent DoD vaccinia (smallpox) vaccine 1 2012 VV04-00 3-A 75 [facility] ([facility]) complet ed vaccinia (smallpox ) vaccine DoD typhoid Vi capsular polysaccharid e vaccine 1 2012 J1201 101 Sanofi Pasteur ([facility]) complet ed typhoid Vi capsular polysacch aride vaccine DoD influenza, live, intranasal,qu adrivalent 2012 [id number] 149 Medimmune Inc comple t ed influenza , live, intranasa l,quadriv alent 12/21/12 Given Ambulat ory Pharmac y influenza, live, intranasal,qu adrivalent 2012 [id number] 149 Medimmune Inc comple t ed influenza , live, intranasa l,quadriv alent 12/21/12 Given Ambulat ory Pharmac y influenza, live, intranasal, quadrivalent 0 2012 [id number] 149 [employer] (MED) complet ed influenza , live, intranasa l, quadrival ent [facility] measles virus vaccine 0 2012 05 () Not Given measles virus vaccine DoD rubella virus vaccine 0 2012 06 () Not Given rubella virus vaccine DoD influenza virus vaccine, live 2011 [id number] 111 Medimmune Inc comple t ed influenza virus vaccine, live 01/27/12 Given Ambulat ory Pharmac y influenza virus vaccine, live 2011 [id number] 111 Medimmune Inc comple t ed influenza virus vaccine, live 01/27/12 Given Ambulat ory Pharmac y influenza virus vaccine, live, attenuated, for intranasal use 1 2011 [id number] 111 MedImmune, Inc. (MED) complet ed influenza virus vaccine, live, attenuate d, for intranasa l use DoD influenza virus vaccine, live 2010 [id number] 111 Medimmune Inc comple t ed influenza virus vaccine, live 01/03/11 Given Ambulat ory Pharmac y influenza virus vaccine, live, attenuated, for intranasal use 0 2010 [id number] 111 MedImmune, Inc. (MED) complet ed influenza virus vaccine, live, attenuate d, for intranasa l use DoD influenza virus vaccine, live 2009 [id number] 111 Medimmune Inc comple t ed influenza virus vaccine, live 01/11/10 Given Ambulat ory Pharmac y influenza virus vaccine, live 2009 [id number] 111 Medimmune Inc comple t ed influenza virus vaccine, live 01/11/10 Given Ambulat ory Pharmac y influenza virus vaccine, live, attenuated, for intranasal use 1 2009 [id number] 111 MedImmune, Inc. (MED) complet ed influenza [...] adult dosage 1 2009 [id number] 52 [email or web address] (SKB) complet ed hepatitis A vaccine, adult dosage DoD tuberculin purified protein derivative 2009 [id number] 96 sanofi pasteur complet ed tuberculi n purified protein derivativ e 04/22/09 Given Ambulat ory Pharmac y Novel influenza-H1N 1-09, injectable 2008 [id number] 1 127 Novartis Pharmaceutica ls complet ed Novel influenza -[id number], injectabl e 04/19/09 Given Ambulat ory Pharmac y meningococcal A,C,Y,W-135 (MCV4P) 2008 [id number] 114 sanofi pasteur complet ed meningoco ccal A,C,Y,W-1 35 (MCV4P) 04/19/09 Given Ambulat ory Pharmac y tetanus, diphtheria, acellular pertu is 2008 [id number] 115 GlaxoSmithKli ne complet ed tetanus, diphtheri a, acellular pertussis 04/19/09 Given Ambulat ory Pharmac y influenza virus vaccine,split 2008 [id number] 1A 15 CSL [employer]ring complet ed influenza virus vaccine,s plit 04/19/09 Given Ambulat ory Pharmac y poliovirus vaccine, inactivated 2008 [id number] 10 sanofi pasteur complet ed polioviru s vaccine, inactivat ed 04/19/09 Given Ambulat ory Pharmac y meningococcal A,C,Y,W-135 (MCV4P) 2008 [id number] 114 sanofi pasteur complet ed meningoco ccal A,C,Y,W-1 35 (MCV4P) 04/19/09 Given Ambulat ory Pharmac y Novel influenza-H1N 1-09, injectable 2008 [id number] 1 127 Novartis Pharmaceutica ls complet ed Novel influenza -K4T1-89, injectabl e 04/19/09 Given Ambulat ory Pharmac y tetanus, diphtheria, acellular pertu is 2008 [id number] [id number] 115 GlaxoSmithKli ne complet ed tetanus, diphtheri a, acellular pertussis 04/19/09 Given Ambulat ory Pharmac y influenza virus vaccine,split 2008 [id number] 1A 15 [employer] complet ed influenza virus vaccine,s plit 04/19/09 Given Ambulat ory Pharmac y poliovirus vaccine, inactivated 2008 D0042 10 sanofi pasteur complet ed polioviru s vaccine, inactivat ed 04/19/09 Given Ambulat ory Pharmac y poliovirus vaccine, inactivated 1 2008 D0042 10 Sanofi Pasteur ([facility]) complet ed polioviru s vaccine, inactivat ed DoD influenza virus vaccine, split virus (incl. purified surface antigen)-reti red CODE 1 2008 [id number] [id number] 15 [employer] (CS) complet ed influenza virus vaccine, split virus (incl. purified surface antigen)- retired CODE DoD meningococcal polysaccharid e (groups A, C, Y and W-135) diphtheria toxoid conjugate vaccine (MCV4P) 1 2008 [id number] 114 Sanofi Pasteur (PMC) complet ed meningoco ccal polysacch aride (groups A, C, Y and W-135) diphtheri a toxoid conjugate vaccine (MCV4P) DoD tetanus toxoid, reduced diphtheria toxoid, and acellular pertu is vaccine, adsorbed 1 2008 [id number] [id number] 115 [facility] (SKB) complet ed tetanus toxoid, reduced diphtheri a toxoid, and acellular pertussis vaccine, adsorbed DoD Novel influenza-H1N 1-09, injectable 1 2008 [id number] 1 127 Novartis Pharmaceutica l Connor. (NOV) complet ed Novel influenza -Z2V6-33, injectabl e DoD Results Combined list of [...] Prevention' s HIV diagnostic algorithm. Refer to [facility] Lab Guide for additional information : [email or web address]/ [email or web address]/EPIL [email or web address] [email or web address] x Testing performed by [employer] patricia mcgill. [facility] Imancella marlene [facility] Repository Sample Received (01/01/23 9:30 AM) [...] food for which the patient is tested. [facility] Allergy Testing AllergenStormy.WH 22.90 kunits/L 01/11 [...] food for which the patient is tested. [facility] Allergy Testing AllergenVale.WH 28.30 kunits/L 01/11 [...] food for which the patient is tested. [facility] Allergy Testing Allergen, Payal mcnulty.WH 28.70 [...] tested. [facility] Allergy Testing Allergen, Iraqi Thistle.WH 24.30 kunits/L 01/11 Result Comment: INTERPRETAT [...] which the patient is tested. Performed by: [facility] [address] [place] [address] Amb[facility] Pharmacy Infectio us [...] Prevention' s HIV diagnostic algorithm. Refer to [facility] Lab Guide for additional information : [email or web address] j/kx5/[employer] rdz/[email or web address]/lab _[email or web address] Testing performed by Michael mcgill. Performed by: Epidemiolog y Laboratory Service [facility] Bldg [address] [place] [id number] [facility] Vital Signs Combined list [...] ADM Date DC Date Status Disposition Source [place] Occup[place] Health[place] OUTPATIENT [id number] [facility] RPP 1300 ALAN MONTANO P 07/18 Released w/o Limitations [place] Occup[place] Hearing Conservat ion) OUTPATIENT [id number] REFEREN CE/OCC HLTH PE AUDIO.. KARON BRUNO 07/19 Released w/o Limitations [place] Hearing [place]ion[place] Avn) OUTPATIENT [id number] PRP JAIME Tomlin 09/28 Released w/o Limitations [place] [employer]([facility]) OUTPATIENT [id number] FIDE SERNA ORESTES W 12/05 Released w/o Limitations [employer](P er [facility]) [employer] [facility]) OUTPATIENT [id number] rts SPRINGBonnie JOSSELINE Lynn 12/31 Released w/o Limitations [employer] [facility](P [facility]) [employer] [facility]) OUTPATIENT [id number] PHA REINALDOMAEGAN TNOIA Bonnie 02/21 Released w/o Limitations [employer] [facility](P [facility]) [facility]) OUTPATIENT [id number] FLU-LIK E SYMPTOM S ANNIKA FRANCOISO M 05/07 Sick at Home/Quarter s [facility](P [facility]) [facility]) OUTPATIENT [id number] Notes Entered by: PRASANTH GALVEZ 29 Jan 2012 0927 ------- ------- ------- ------- -- Return From Deploym ent/TDY DAMIEN HUFFMAN 01/28 Released w/o Limitations [facility](P [facility]) [facility]) OUTPATIENT [id number] RACHNA OLIVAREZ 06/02 Released w/o Limitations [facility]) [facility]) OUTPATIENT [id number] Notes Entered by: KADEN ORTIZ 02 Jun 2012 1051 ------- ------- ------- ------- -- KADEN KERR 06/02 Released w/o Limitations [facility]) [facility]) OUTPATIENT [id number] DESIREE PATEL 06/10 Released w/o Limitations [facility](F light Medicin e) [facility]) TELE CONSULT [id number] Notes Entered by: SONA NICHOLS 14 Feb 2013 1432 ------- ------- ------- ------- -- SONA LOUISE 02/14 Referred for Appointment [employer]([facility]) [employer]([facility]) OUTPATIENT [id number] OVERSEA S PAUL HUDDLESTON V 03/02 Released w/o Limitations [employer](P er [facility]) [employer]([facility]) OUTPATIENT [id number] RACHNA OLIVAREZ 06/09 Released w/o Limitations [employer]([facility]) [employer]([facility]) OUTPATIENT [id number] TAVON WEBER 06/17 Released w/o Limitations [employer](F light Medicin e) [employer]([facility]) OUTPATIENT [id number] Notes Entered by: BEAU MCCALLUM 31 May 2014 0830 ------- ------- ------- ------- -- Hearing Conserv ation ZEV ZAMORA 05/30 Released w/o Limitations [employer]([facility]) [employer]([facility] Flight Medicine [facility]) OUTPATIENT [id number] [facility] health exam KARON HARTMANN 06/15 Released w/o Limitations [employer]([facility] Flight Medicin e Clinic) [employer]([facility]) OUTPATIENT [id number] Notes Entered by: VASILE WALSH 27 Jun 2014 1027 ------- ------- ------- ------- -- TB Risk Assessm VASILE Lemus 06/27 Released w/o Limitations [employer]([facility]) [employer]([facility] Cell) OUTPATIENT [id number] Notes Entered by: Rod VIVEROS 29 Jun 2014 1316 ------- ------- ------- ------- -- ADMIN FIDE CARRASCONORI Terry 06/29 Released w/o Limitations [employer](P [facility] Cell) [employer](Michael n [facility] Team A) TELE CONSULT [id number] Notes Entered by: MIKO NIELSEN 29 Jun 2014 1341 ------- ------- ------- ------- -- CHARLEY Chavarria about quittin g smoking YASIR LARES 06/29 Referred- Emergency Department [employer](O quinn [facility] Team A) [employer](Opt ometry Clinic) OUTPATIENT [id number] Notes Entered by: STEPHANIE CRENSHAW 04 Sep 2014 1507 ------- ------- ------- ------- -- 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 SHAKIRA ROBERTSON 09/04 Released w/o Limitations [employer](O ptometr y Clinic) [employer]([facility]) TELE CONSULT [id number] Notes Entered by: KARON GOMEZ 22 Sep 2014 1336 ------- ------- ------- ------- -- In Process ing KARON GOMEZ 09/22 Other Not Elsewhere Classified [employer](P andemic Virus Clinic) [employer](Fam karma Medicine Residency ) OUTPATIENT [id number] Discuss Cyst on L waist area & has lonnie lopez issue wants to discuss KARON HERNÁNDEZ 12/18 Released w/o Limitations [employer](F amily Medicin e Residen cy) [employer](Fam karma Medicine Residency ) OUTPATIENT [id number] DAINA Mackay 04/26 Released w/o Limitations [employer](F amily Medicin e Residen cy) [employer](BOM C Review Clinic) OUTPATIENT [id number] Notes Entered by: Terry TORRES 27 Apr 2015 0827 ------- ------- ------- ------- -- ANGELIC GHOTRA 04/27 Released w/o Limitations [employer](B O[facility] Review Clinic) [employer](ENT Clinic) OUTPATIENT [id number] Septal deviati on TI WEEKS 05/03 Released w/o Limitations [employer](E NT Clinic) [employer](Hea ring Conservat ion) OUTPATIENT [id number] ANNUAL OCC AUDIO BRENT ALLEN 05/14 Released w/o Limitations [employer](H earing Conserv ation) [employer](FOM C-Flight and Ops Medicine) OUTPATIENT [id number] OCC PHYSICA ANGELIC HOGAN 06/05 Released w/o Limitations [employer](F OMC-Fli ght and Ops Medicin e) [employer](BO C-Base Operation al Medicine) OUTPATIENT [id number] occ phys fabricMAGUI Presley 03/27 Released w/o Limitations [employer](B OMC-Bas e Operati onal Medicin e) [employer](Hea ring Conservat ion) OUTPATIENT [id number] occ phys @ 1230 CULVERANGEL Sixto 03/27 Released w/o Limitations [employer](H earing Conserv ation) [employer](BO C Review Clinic) OUTPATIENT [id number] Notes Entered by: JAD JAMES 27 May 2016 1408 ------- ------- ------- ------- -- ANNUAL TRI-SER [facility] DAINA WEBB 05/27 Released w/o Limitations [employer](B [facility]) [employer]([facility] karma Medicine Residency ) OUTPATIENT [id number] Rod huber r pain, pain in abdoman lower R YVON REID 08/18 Released w/o Limitations [employer](F amily Medicin e Residen cy) [employer]([facility] karma Medicine Residency ) TELE CONSULT [id number] Notes Entered by: DEB MONTAÑO 01 Sep 2016 1601 ------- ------- ------- ------- -- Test results YVON REID Rod 09/01 [employer](F amily Medicin e Residen cy) [employer](PT Evaluatio n) OUTPATIENT [id number] Pain in left evae PAUL Haney 09/08 Released w/o Limitations [employer](P T Evaluat ion) [employer](PT Treatment ) OUTPATIENT [id number] CORA LOMELI 09/09 Released w/o Limitations [employer](P T Treatme nt) [employer](PT Treatment ) OUTPATIENT [id number] CORA LOMELI 09/16 Released w/o Limitations [employer](P T Treatme nt) [employer](PT Treatment ) OUTPATIENT [id number] CORA LOMELI 09/18 Released w/o Limitations [employer](P T Treatme nt) [employer](PT Treatment ) OUTPATIENT [id number] EDINSON MCKEON 09/23 Released w/o Limitations [employer](P T Treatme nt) [employer](PT Treatment ) OUTPATIENT [id number] CORA LOMELI 09/25 Released w/o Limitations [employer](P T Treatme nt) [employer](Gen eral Surgery Clinic) OUTPATIENT [id number] inguina l hernia GRECIA ROMO I 09/30 Released w/o Limitations [employer](G eneral Surgery Clinic) [employer](PT Treatment ) OUTPATIENT [id number] CORA LOMELI 09/30 Released w/o Limitations [employer](P T Treatme nt) [employer] TELE CONSULT [id number] Notes Entered by: ARPAN MYERS 27 Oct 2016 1326 ------- ------- ------- ------- -- Network Results - General Surgery - Oct 04 DUSTY BEJARANO 10/27 Referred for Appointment [employer](F amily Medicin e Residen cy) [employer](Gen eral Surgery Clinic) OUTPATIENT [id number] S/P Open RIHR dos 10/17 CLARISSAGRECIA Toney 10/29 Released w/o Limitations [employer](G eneral Surgery Clinic) [employer](PT Evaluatio n) OUTPATIENT [id number] SESAYPAUL Morris Terry 11/04 Released w/o Limitations [employer](P T Evaluat ion) [employer]([facility] karma Medicine Residency ) OUTPATIENT [id number] right side abdomen pain TJArturo TRINIDAD J 02/23 Released w/o Limitations [employer](F amily Medicin e Residen ) [employer](Gen eral Surgery Clinic) OUTPATIENT [id number] Lower abdomin al pain, unspeci fied ANTONIO THOMPSON 03/09 Released w/o Limitations [employer](G eneral Surgery Clinic) [facility](Gen eral Surgery Clinic) TELE CONSULT [id number] Notes Entered by: Rod THOMPSON 25 Mar 2017 1051 ------- ------- ------- ------- -- Discuss recent US results ANTONIO THOMPSON 03/25 [employer](G eneral Surgery Clinic) [facility] [employer](Hea ring Conservat ion) OUTPATIENT [id number] Audiogr LEONID Ferrer 03/26 Released w/o Limitations [employer](H earing Conserv ation) [facility](BOM C-Base Operation al Medicine) OUTPATIENT [id number] Physica l exam sheet metal CHYNAASHANTI 03/26 Released w/o Limitations [employer](B OMC-Bas e Operati onal Medicin e) [facility](BOM C Review Clinic) OUTPATIENT [id number] Notes Entered by: DIMITRI CHIN 05 Aug 2017 1443 ------- ------- ------- ------- -- DUSTY Shultz 08/05 Released w/o Limitations [employer]([facility] Review [facility]) [facility](BOM C-Base Operation al Medicine) OUTPATIENT [id number] [facility] MATTI Dumas 03/25 Released w/o Limitations [employer](B OMC-Bas e Operati onal Medicin e) [employer](Hea ring Conservat ion) OUTPATIENT [id number] audiogr am YINA SUJATAArturo Moe 03/26 Released w/o Limitations [employer](H earing Conserv ation) [facility] karma Medicine Residency ) OUTPATIENT [id number] cyst on left side of waist area, best someSONA Morales Lynn 06/02 Released w/o Limitations [employer](F amily Medicin e Residen ) [facility](FMR Procedure Clinic) OUTPATIENT [id number] Sebaceo us cyst PERLITA LARSON Terry 06/18 Released w/o Limitations [employer]( MR Procedu re Clinic) [facility](va ) OUTPATIENT [id number] Notes Entered by: Terry LEYVA 28 Jun 2018 1519 ------- ------- ------- ------- -- Walk in suture removal . PCM:MALACHI Lew 06/28 Released w/o Limitations [employer]( ) [facility](BO C Review Clinic) OUTPATIENT [id number] Notes Entered by: LOPEZ ROBERT MA TTHEW D 05 Jul 2018 1425 ------- ------- ------- ------- -- Retrain MATTI Torres 07/05 Released w/o Limitations [employer] [facility](B [facility] Review [facility]) [facility](BO C-Base Operation al Medicine) OUTPATIENT [id number] 9 Non Fly [facility] # [phone] COLBY MEJIA 08/02 Released w/o Limitations [employer](B OMC-Bas e Operati onal Medicin e) [employer](va ) OUTPATIENT [id number] ANNUAL DOD PHA ROBINSON BAPTISTE P 08/04 Released w/o Limitations [employer]( juan carlos ) [employer]( anna ) OUTPATIENT [id number] 3 cough - NAL MAS ROBINSON BAPTISTE P 10/12 Released w/o Limitations [employer](W juan carlos AD Mei) [employer](BOM C-Base Operation al Medicine) OUTPATIENT [id number] 7 [facility] physica l 061A ORIANA SILVA 03/10 Released w/o Limitations [employer](B OMC-Bas e Operati onal Medicin e) [employer](Hea ring Conservat ion) OUTPATIENT [id number] annual audiogr am DESTINEE WOMACK 03/11 Released w/o Limitations [employer](H earing Conserv ation) [employer]( anna ) TELE CONSULT [id number] Notes Entered by: HANY YARBROUGH 18 Apr 2019 1612 ------- ------- ------- ------- -- PCM Jhonny/OZIZE Cano 04/18 Referred for Appointment [employer]( juan carlos ) [employer] [id number] 6 follow up tonsill itis and hernia pain ROBINSON BAPTISTE P 04/25 Released w/o Limitations [employer]( juan carlos Mei) [employer] TELE CONSULT [id number] Notes Entered by: KINGSLEY BARRY 10 May 2019 0719 ------- ------- ------- ------- -- U/OZZIE DIEHL 05/10 Released to [employer]( juan carlos AD Mei) [employer](Gen eral Surgery Clinic) OUTPATIENT [id number] Lower abdomin al pain SASTRI, SIRIKANYA CPT 05/26 Released w/o Limitations [employer](G eneral Surgery Clinic) [employer]([facility] Mei) TELE CONSULT [id number] 0 Notes Entered by: HANY YARBROUGH 31 May 2019 1635 ------- ------- ------- ------- -- PCM Barry/Pro file ROBINSON BAPTISTE P 05/31 [employer]( juan carlos ) [employer](BO C-Base Operation al Medicine) OUTPATIENT [id number] [phone] RTINIDAD PHOENIX 07/27 Released w/o Limitations [employer](B OMC-Bas e Operati onal Medicin e) [facility](Henry [place] HERMAN Mei) OUTPATIENT [id number] ANNUAL DoD PHA ROBINSON BAPTISTE P 07/28 Released w/o Limitations [employer]( tremainealon utt) [facility](FMR Procedure Clinic) OUTPATIENT [id number] 2 chronic right groin pain s/p hernia repair GUS VU 01/01 Released w/o Limitations [employer](F MR Procedu re Clinic) [facility](FMR Procedure Clinic) OUTPATIENT [id number] right groin prolo MIRELLAGUS SCALES 01/04 Released w/o Limitations [employer](F MR Procedu re Clinic) [facility](PT Treatment ) OUTPATIENT [id number] 7 Right groin pain PAUL SESAY 01/10 Released w/o Limitations [employer](P T Treatme nt) [facility](FMR Procedure Clinic) OUTPATIENT [id number] right groin prolo MIRELLAGUS 01/12 Released w/o Limitations [employer](F MR Procedu re Clinic) [employer](BOM C-Base Operation al Medicine) OUTPATIENT [id number] [facility] physicSONA Vega 01/24 Released w/o Limitations [employer](B OMC-Bas e Operati onal Medicin e) [employer](Hea ring Conservat ion) OUTPATIENT [id number] Notes Entered by: Estevan SIMONS 26 Jan 2020 1353 ------- ------- ------- ------- -- AUDIOGR AM ETHEL SIMONS 01/25 Released w/o Limitations [employer](H earing Conserv ation) [employer](FMR Procedure Clinic) OUTPATIENT [id number] prolo right groin GUS VU 02/09 Released w/o Limitations [employer](F MR Procedu re Clinic) [facility](Henry castillo Mei) TELE CONSULT [id number] Notes Entered by: HANY YARBROUGH 02 Mar 2020 1209 ------- ------- ------- ------- -- PCM Ethan rick/EN T Inqubritt y OZZIE HERRERA 03/02 Released to [employer](W juan carlos AD Mei) [facility](ENT Clinic) OUTPATIENT [id number] Snoring GAURAV DEUTSCH P 03/07 Released w/o Limitations [employer](E NT Clinic) [facility](Ops urge Multi-Spe cialty Cl) TELE CONSULT [id number] Notes Entered by: SHWETHA GOMEZ 23 Apr 2020 1343 ------- ------- ------- ------- -- Covid Testing VALENTINO VALDES 04/23 [facility] Group(O psurge Multi-S pecialt y Cl) [facility](ENT Clinic) OUTPATIENT [id number] 1 f/u snoring /scope- covid 4Jan GAURAV DEUTSCH P 04/26 Released w/o Limitations [employer](E NT Clinic) [facility] [employer]( ketchum utt) TELE CONSULT [id number] Notes Entered by: HANY YARBROUGH 20 Jun 2020 1506 ------- ------- ------- ------- -- PCM Ethan rick/Co OZZIE Harris 06/20 Released to [employer](Yesika rangel Mei) [employer]([facility] castillo utt) TELE CONSULT [id number] Notes Entered by: HANY YARBROUGH 25 Jun 2020 1107 ------- ------- ------- ------- -- PCM Ethan rick/Fo yuriw up septopl OZZIE Michaud 06/25 Released to [employer](W juan carlos AD Mei) [employer](Bas e Ops Med Clinic) OUTPATIENT [id number] 2 ALT # . AF ROSIEA YURIDIA JEROME 12/05 Released w/o Limitations [employer](B ase Ops Med Clinic) [facility](Fli ght Med Squires) TELE CONSULT [id number] Notes Entered by: OMAYRA JEROME 05 Dec 2021 1233 ------- ------- ------- ------- -- GSU Remote Form CHAPARRITA MORELAND 12/05 Other Not Elsewhere Classified [facility](F light Med Squires) [employer](Russo scom [facility] Team A) TELE CONSULT [id number] Notes Entered by: RORY KWON 09 Dec 2021 1436 ------- ------- ------- ------- -- REF- [facility] DYLAN ESTRADA 12/09 Other Not Elsewhere Classified [facility](H anscom [facility] Team A) [employer](Bas e Ops Med Clinic) OUTPATIENT [id number] PHA only YURIDIA JEROME 04/29 Released w/o Limitations [employer](B ase Ops Med Clinic) [id number]- [facility] [employer] [facility] [id number] AUBRIE KAT 07/06 Discharge Disposition: Home or Self Care 0C-A [id number] [facility] [employer] Procedures Combined list of: 1) Procedures from Department of Veterans Affairs facilities going back up to thelast 18 months, not all VA non-surgical procedures are included; 2) All procedures from the Department of Defense facilities. Procedure Procedure Type Code Date Perfomer Comments Sour e PURE TONE AUDIOMETRY (THRESHOLD); AIR ONLY 010 DoD PATIENT EDUCATION, NOT OTHERWISE CLASSIFIED, NON-PHYSICIAN PROVIDER, INDIVIDUAL, PER SESSION 010 DoD ADMINISTRATION OF PATIENT-FOCUSED HEALTH RISK ASSESSMENT [...] W/IN NEXT 24HR/SOON ANSLEY; 5-10 MIN DISC 022 DoD PURE TONE AUDIOMETRY (THRESHOLD); AIR ONLY 015 DoD PURE TONE AUDIOMETRY (THRESHOLD), AUTOMATED; AIR ONLY 015 DoD PURE TONE AUDIOMETRY (THRESHOLD); AIR ONLY 014 DoD PSYCHIATRIC EVALUATION OF HOSPITAL RECORDS, OTHER PSYCHIATRIC REPORTS, PSYCHOMETRIC AND/OR PROJECTIVE TESTS, AND OTHER ACCUMULATED DATA FOR MEDICALDIAGNOSTIC PURPOSES 013 DoD PSYCHIATRIC EVALUATION OF HOSPITAL RECORDS, OTHER PSYCHIATRIC REPORTS, PSYCHOMETRIC AND/OR PROJECTIVE TESTS, AND OTHER ACCUMULATED DATA FOR MEDICALDIAGNOSTIC PURPOSES 011 DoD TELE ASSESS & MGT SRV PROV QUAL NONPHYS HLTH CARE PRO TO EST PAT,PARENT,GUARD NOT ORIG REL ASSESS & MGT SRV PROV W/IN PREV 7 DAYS NOR LEAD ASSESS & MGT SRV/PX W/IN NXT 24 HR/SOON APT;5-10 MIN MED DIS [facility] QUALIFIED NONPHYSICIAN HEALTH APPLICATIONS INSTRUCTOR ONLINE DIGITAL ASSESSMENT AND MANAGEMENT, FOR AN ESTABLISHED PATIENT, FOR UP TO 7 DAYS, CUMULATIVE TIME DURING THE 7 DAYS; 5-10 MINUTES [facility] QUALIFIED NONPHYSICIAN HEALTH APPLICATIONS INSTRUCTOR ONLINE DIGITAL ASSESSMENT AND MANAGEMENT, FOR AN ESTABLISHED PATIENT, FOR UP TO 7 DAYS, CUMULATIVE TIME DURING THE 7 DAYS; 5-10 MINUTES [facility] OSTEOPATHIC MANIPULATIVE TREATMENT (OMT); 1-2 BODY REGIONS INVOLVED DoD INJECTION, INTRALESIONAL; UP TO AND INCLUDING 7 LESIONS [facility] THERAPEUTIC PROCEDURE, 1 OR MORE AREAS, EACH 15 MINUTES; THERAPEUTIC EXERCISES TO DEVELOP STRENGTH AND ENDURANCE, RANGE OF MOTION AND FLEXIBILITY DoD INJECTION, INTRALESIONAL; UP TO AND INCLUDING 7 LESIONS DoD INJECTION(S), ANESTHETIC AGENT(S) AND/OR STEROID; ILIOINGUINAL, ILIOHYPOGASTRIC NERVES [facility] ADMINISTRATION OF PATIENT-FOCUSED HEALTH RISK ASSESSMENT INSTRUMENT (EG, HEALTH HAZARD APPRAISAL) WITH SCORING AND DOCUMENTATION, PER STANDARDIZED INSTRUMENT [facility] BRIEF COMM TECH-BASE SERV,E.G. VIRT CHK-IN,BY PHYS/OTH QUAL HCP,RPT E&M SERV,PROV TO EST PT,NOT ORIG FRM REL E/M SERV PROV W/IN PREV 7DAY NOR LEAD TO E/M SRV/PX W/IN NEXT 24HR/SOON ANSLEY; 5-10 MIN DISC [facility] ONLINE ASSESS &MANAG SERV PROVIDE,A QUAL NONPHYS HCP TO AN ESTABLISHED PAT/GUARDIAN,NOT ORIGINAT FRM RELAT ASSESS &MANAG SERV PROVIDE W/IN THE PREV 7 DAYS,USE THE [employer] DoD TELE ASSESS & MGT SRV [...] REQUIRING ANESTHESIA (IE, GENERAL ANESTHESIA, MODERATE SEDATION) [facility] EXCISION, BENIGN LESION INCLUDING MARGINS, EXCEPT SKIN [...] DoD PURE TONE AUDIOMETRY (THRESHOLD); AIR ONLY [facility] RE-EVAL,PHYSICAL THERAPY EST PLAN OF CARE,REQ:EXAM,REV,HX & USE,STAND TESTS &MARCE REQ;REV PLAN OF CARE USING STAND PAT ASSESS INSTR &/MARCE ASSESS FUNC OUTCOME TYP,20 MIN SPENT [id number] W PAT&/FAM [facility] POSTOPERATIVE FOLLOW-UP VISIT, NORMALLY INCLUDED IN THE SURGICAL PACKAGE, INDICATE THAT EVALUATION & MANAGEMENT SERVICE WAS PERFORMED DURING A POSTOPERATIVE PERIOD REASON RELATED ORIGINAL PROCEDURE [facility] REPAIR INITIAL INGUINAL HERNIA, AGE 5 YEARS OR OLDER; REDUCIBLE [facility] APPLICATION OF A MODALITY TO 1 OR MORE AREAS; VASOPNEUMATIC DEVICES 017 DoD APPLICATION OF A MODALITY TO 1 OR MORE AREAS; VASOPNEUMATIC DEVICES 017 DoD THERAPEUTIC PROCEDURE, 1 OR MORE AREAS, EACH 15 MINUTES; THERAPEUTIC EXERCISES TO DEVELOP STRENGTH AND ENDURANCE, RANGE OF MOTION AND FLEXIBILITY 017 DoD APPLICATION OF A MODALITY TO 1 OR MORE AREAS; HOT OR COLD PACKS 017 DoD APPLICATION OF A MODALITY TO 1 OR MORE AREAS; HOT OR COLD PACKS 017 DoD THERAPEUTIC PROCEDURE,1 OR MORE AREAS,EACH 15 MINUTES;NEUROMUSCULA R REEDUCATION OF MOVEMENT,BALANCE,SERVICE CENTER MANAGER RDINATION,KINESTHETI C SENSE,POSTURE,AND/OR PROPRIOCEPTION FOR SITTING AND/OR STANDING ACTIVITIES 017 DoD THERAPEUTIC PROCEDURE, 1 OR MORE AREAS, EACH 15 MINUTES; THERAPEUTIC EXERCISES TO DEVELOP STRENGTH AND ENDURANCE, RANGE OF MOTION AND FLEXIBILITY 017 DoD PURE TONE AUDIOMETRY (THRESHOLD), AUTOMATED; AIR ONLY 016 DoD SCREENING TEST, PURE TONE, AIR ONLY 016 DoD PURE TONE AUDIOMETRY (THRESHOLD), AUTOMATED; AIR ONLY 016 DoD OPHTHALMOLOGICAL SERVICES: MEDICAL EXAMINATION AND EVALUATION WITH INITIATION OF DIAGNOSTIC AND TREATMENT PROGRAM; INTERMEDIATE, NEW PATIENT 015 DoD THERAPEUTIC, PROPHYLACTIC, OR DIAGNOSTIC INJECTION (SPECIFY SUBSTANCE OR DRUG); SUBCUTANEOUS OR INTRAMUSCULAR 010 [facility] Preventive Medicine Administration Of Health Risk Questionnaire Patient-Focused Preventive Medicine Administration Of Health Risk Questionnaire Patient-Focused [id number] ROBINSON BAPTISTE [facility] Preventive Medicine Administration Of Health Risk Questionnaire Patient-Focused Preventive Medicine Administration Of Health Risk Questionnaire Patient-Focused [id number] [id number] COLBY MEJIA [facility] Preventive Medicine Administration Of Health Risk Questionnaire Patient-Focused Preventive Medicine Administration Of Health Risk Questionnaire Patient-Focused [id number] MATTI WASHBURN [facility] Internet Med Svc Qual Nonps Healthcare Prof Up To 7 Days Estab Patient Internet Med Svc Qual Nonphys Healthcare Prof Up To 7 Days Estab Patient 63481 019 MATTI WASHBURN [facility] Removal Of Sutures Under Anesthesia By Other Surgeon Removal Of Sutures Under Anesthesia By Other Surgeon 12289 019 MALACHI REID [facility] Excision Of Lesion Hips Benign Over 4cm Excision Of Lesion Hips Benign Over 4cm 11137 019 PERLITA LARSON [facility] Threshold Audiogram (Pure Tone) Automated Threshold Audiogram (Pure Tone) Automated 0208T 018 DALILA BRAN [facility] Preventive Medicine Administration Of Health Risk Questionnaire Patient-Focused Preventive Medicine Administration Of Health Risk Questionnaire Patient-Focused [id number] 018 DUSTY BEJARANO [facility] Internet Med Svc Qual Nonphys Healthcare Prof Up To 7 Days Estab Patient Internet Med Svc Qual Nonphys Healthcare Prof Up To 7 Days Estab Patient 32522 018 DUSTY BEJARANO [facility] Preventive Medicine Administration Of Health Risk Questionnaire Patient-Focused Preventive Medicine Administration Of Health Risk Questionnaire Patient-Focused 53139 018 BRIE ROJO [facility] Threshold Audiogram (Pure Tone) Threshold Audiogram (Pure Tone) 30931 017 ASHANTI CLEMENTE [facility] Threshold Audiogram (Pure Tone) Threshold Audiogram (Pure Tone) 10147 017 LEONID BATES [facility] Physical Therapy Service Re-Evaluation Physical Therapy Service Re-Evaluation 56263 017 PAUL SESAY [facility] Postoperative Visit, Without Charge Postoperative Visit, Without Charge 91661 017 GRCEIA ROMO I [facility] Modalities Vasopneumatic Device Modalities Vasopneumatic Device 93226 017 CORA LOMELI Physical Therapy Mobilization Joint Physical Therapy Mobilization Joint 56585 017 CORA LOMELI Physical Therapy: ___ Se ion Segments, 15 Minutes Each Physical Therapy: ___ Session Segments, 15 Minutes Each 27954 017 CORA LOMELI Physical Therapy Neuromuscular Re-education Physical Therapy Neuromuscular Re-education 46236 017 CORA LOMELI Modalities Vasopneumatic Device Modalities Vasopneumatic Device 76465 017 CORA LOMELI Physical Therapy: ___ Se ion Segments, 15 Minutes Each Physical Therapy: ___ Session Segments, 15 Minutes Each 44024 017 CORA LOMELI Physical Therapy Mobilization Joint Physical Therapy Mobilization Joint 04511 017 CORA LOMELI Physical Therapy Neuromuscular Re-education Physical Therapy Neuromuscular Re-education 69404 017 CORA LOMELI Modalities Cryotherapy Cold Packs Modalities Cryotherapy Cold Packs 82397 017 EDINSON MCKEON Physical Therapy Mobilization Joint Physical Therapy Mobilization Joint 01968 017 EDINSON MCKEON Physical Therapy Neuromuscular Re-education Physical Therapy Neuromuscular Re-education 37191 017 EDINSON MCKEON Physical Therapy: ___ Se ion Segments, 15 Minutes Each Physical Therapy: ___ Session Segments, 15 Minutes Each 44372 017 EDINSON MCKEON Modalities Cryotherapy Cold Packs Modalities Cryotherapy Cold Packs 18719 017 CORA LOMELI Physical Therapy Mobilization Joint Physical Therapy Mobilization Joint 64447 017 CORA LOMELI Physical Therapy Neuromuscular Re-education Physical Therapy Neuromuscular Re-education 58649 017 CORA LOMELI Physical Therapy: ___ Se ion Segments, 15 Minutes Each Physical Therapy: ___ Session Segments, 15 Minutes Each 49361 017 CORA LOMELI Modalities Cryotherapy Cold Packs Modalities Cryotherapy Cold Packs 84011 017 CORA LOMELI Physical Therapy Mobilization Joint Physical Therapy Mobilization Joint 03809 017 CORA LOMELI Physical Therapy Neuromuscular Re-education Physical Therapy Neuromuscular Re-education 84372 017 CORA LOMELI Physical Therapy: ___ Se ion Segments, 15 Minutes Each Physical Therapy: ___ Session Segments, 15 Minutes Each 92566 017 CORA LOMELI Physical Therapy Neuromuscular Re-education Physical Therapy Neuromuscular Re-education 66311 017 CORA LOMEIL Physical Therapy: ___ Se ion Segments, 15 Minutes Each Physical Therapy: ___ Session Segments, 15 Minutes Each 58067 017 CORA LOMELI A isted Exercises For ROM Assisted Exercises For ROM 05583 017 PAUL SESAY [facility] Physical Therapy Service Evaluation Low Complexity Physical Therapy Service Evaluation Low Complexity 04651 017 PAUL SESAY DoD Threshold Audiogram (Pure Tone) Automated Threshold Audiogram (Pure Tone) Automated 0208T 016 ANGEL CULVER DoD Audiogram (Screening) Audiogram (Screening) 15261 016 KAMINI ANGELIC Vargas [facility] Threshold Audiogram (Pure Tone) Automated Threshold Audiogram (Pure Tone) Automated 0208T 016 BRENT ALLEN [facility] Ophthalmological New Patient Start Intermediate Level Care Ophthalmological New Patient Start Intermediate Level Care 81280 015 SHAKIRA ROBERTSON [facility] Non-Physician Phone Call To Patient/Provider Brief (5-10min) Non-Physician Phone Call To Patient/Provider Brief (5-10min) 32860 015 YASIR LARES DoD Threshold Audiogram (Pure Tone) Threshold Audiogram (Pure Tone) 34767 015 KARON HARTMANN [facility] Threshold Audiogram (Pure Tone) Automated Threshold Audiogram (Pure Tone) Automated 0208T 015 ZVE ZAMORA DoD Threshold Audiogram (Pure Tone) Threshold Audiogram (Pure Tone) 07404 014 TAVON CRANE [facility] Psychiatric Diagnostic Evaluation Review of Records and Reports Psychiatric Diagnostic Evaluation Review of Records and Reports 94499 013 SONA NICHOLS [facility] Psychiatric Diagnostic Evaluation Review of Records and Reports Psychiatric Diagnostic Evaluation Review of Records and Reports 57246 011 ROGER HERNANDEZ [facility] Threshold Audiogram (Pure Tone) Threshold Audiogram (Pure Tone) 53294 010 KARON BRUNO [facility] Patient education, not otherwise cla ified, non-physician provider, individual, per se ion 010 KARON BRUNO [facility] Audiometry Group Testing Audiometry Group Testing 62188 010 KARON BRUNO [facility] Patient education, not otherwise cla ified, non-physician provider, individual, per se ion 010 ALAN MONTANO [facility] Threshold Audiogram (Pure Tone) Automated Threshold Audiogram (Pure Tone) Automated 0208T DESTINEE WOMACK [facility] Non-Physician Phone Call To Patient/Provider Brief (5-10min) Non-Physician Phone Call To Patient/Provider Brief (5-10min) 13138 OZZIE HERRERA Internet Med Svc Qual Nonphys Healthcare Prof Up To 7 Days Estab Patient Internet Med Svc Qual Nonphys Healthcare Prof Up To 7 Days Estab Patient 45212 ZOZIE [facility] Preventive Medicine Administration Of Health Risk Questionnaire Patient-Focused Preventive Medicine Administration Of Health Risk Questionnaire Patient-Focused [address] [address] [place] Brief communication technology-based service, e.g. virtual check-in, by a physician or other qualified health care aurea noble who can report evaluation and management services, provided to an established patient, not originating from a related E/M service provided within the previous 7 days nor leading to an E/M service or procedure within the next 24 hours or soonest available appointment; 5-10 minutes of medical discu ion TRINIDAD [place] Nerve Block Ilioinguinal Nerve Block Ilioinguinal 67154 GUS VU Intralesional Injections - Up To Seven Intralesional Injections - Up To Seven 87518 GUS VU Physical Therapy Service Evaluation Low Complexity Physical Therapy Service Evaluation Low Complexity 59573 PAUL SESAY A isted Exercises For ROM Assisted Exercises For ROM 22271 PAUL SESAY Osteopathic Manip Treatment (OMT) 1-2 Body Regions Involved Osteopathic Manip Treatment (OMT) 1-2 Body Regions Involved 02619 GUS VU Internet Med Svc Qual Nonphys Healthcare Prof Up To 7 Days Estab Pt 5-10 Min Internet Med Svc Qual Nonphys Healthcare Prof Up To 7 Days Estab Pt 5-10 Min 83611 OZZIE HERRERA Brief communication technology-based service, e.g. virtual check-in, by a physician or other qualified health care aurea noble who can report evaluation and management services, provided to an established patient, not originating from a related E/M service provided within the previous 7 days nor leading to an E/M service or procedure within the next 24 hours or soonest available appointment; 5-10 minutes of medical discu ion YURIDIA JEROME Terry Only telephonic assessment; visit lasted 15 minutes. DoD Repair inguinal hernia, sliding, any age Repair inguinal hernia, sliding, any age [id number] 0078C-Off [facility] [id number]-Off [facility] Rhin[facility] 2020 [facility] Colonoscopy Per SM, November 2022 with normal results. [facility] Social History Combined list of available smoking, tobacco, and other social history from Department of Defense and Veterans Affairs facilities. Social History Type Response Date Comment Sourc e Male 06/22/2020 Ambulatory Pharmacy This section is an empty social history section. DoD Tobacco Cigarette use: Former-cigarette user. Total years of smoking cigarettes: 2. Other Tobacco use: Yes-current some day other tobacco user (not cigarettes). SM reports current occasional vaping x2 years; SM reports Hx of cigarette smoking x2 years; quit cigarettes Jan 2020. Ambulatory Pharmacy Sexual Orientation Ambula tory Pharmacy Gender identity Ambulator y Pharmacy Assessment and Plan Combined list of future care activities from Department of Defense and Veterans Affairs facilities (e.g., assessment and plan notes, appointments, orders, and referrals). Additional future care activities may be listed in the Plan of Care section. 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 ? 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 65[facility] [facility] [place] [facility] [phone] ? Extracted from:Title: [facility]: Respiratory symptoms follow-up Author: KATIE ISIDRO NP Date: 01/11/21 1.?Allergic rhinitis Symptoms most likely consistent with allergic etiology? ? cough, mild nasal congestion, post nasal drip, scratchy throat.?No s/sx of current?infection, no fevers. ?Refilled Albuterol, Adelaida, and Flonase. Will add Singulair to daily regimen. RAST panel ordered.?No indication for additional pulmonary work-up at this time.??F/U?for continued symptoms. SM pending PCS to [employer] in 4-6 weeks, may f/u at new duty station if needed. ? Based on today's encounter, No FR, DR or MR, meets retention standards.?No existing profiles in [employer]. ? Ordered: albuterol, 2 puff(s), Inhale, every 4 hr, PRN wheezing, # 8.5 g, 0 total refill(s), Maintenance, 2 puff(s) Inhale every 4 hr,PRN:as needed for wheezing, Pharmacy: [facility] [Not filled] fexofenadine, 1 tab(s), Oral, Daily, PRN allergy symptoms, # 90 tab(s), 3 total refill(s), Maintenance, 1 tab(s) Oral Daily,PRN:as needed for allergy symptoms, Pharmacy: [facility] [Federal Rx: #90 last filled 01/11/21] Allergy Screen Panel 1 [id number] Office Visit Level 4 Est 25360 ? 2.?Otitis externa of left ear Will [...] refill(s), Acute, 4 drop(s) Ear-Both BID, Pharmacy: [facility] [Not filled] Office Visit Level 4 Est 21455 ? Orders: fluticasone nasal, 50 mcg, Nostril-Both, BID, # 16 g, 5 total refill(s), Maintenance, 50 mcg Nostril-Both BID, Pharmacy: [facility] [Federal Rx: #16 last filled 01/11/21] montelukast, 1 tab(s), Oral, every evening, # 90 tab(s), 0 total refill(s), Maintenance, 1 tab(s) Oral every evening, Pharmacy: [facility] [Not filled] Extracted from:Title: Ambulatory Patient [...] 10/03/2011 Document Revised: 09/11/2016 Document Reviewed: 06/13/2015 [employer] Interactive Patient Education ? 2019 [employer]. Immunology Allergic Rhinitis, Adult Allergic rhinitis is [...] related conditions, such as: ? Asthma. ? [place] eye. ? Ear infection. ? Upper respiratory [...] before sitting on furniture or bedding. Take uhmz-lmz-nwoluxd and prescription medicines only as told by [...] 12/30/2001 Document Revised: 05/14/2017 Document Reviewed: 05/14/2017 [employer] Interactive Patient Education ? 2019 [employer] Extracted from:Title: Audiology Note Author: MANDIE NEAL Date: 01/10/21 1.?EXAM, FORMAL OCCUPATIONAL HEALTH PROGRAM INCLUDING HEARING CONSERVATION PROGRAM, PERIODIC FOR CONTINUED SURVEILLANCE FOR OCCUPATIONAL WORKPLACE EXPOSURE Ordered: Compre Audiometry Threshold Eval Sp Recognij 32808 Distrt Prod Evokd Otoacoustic Emsns Comp/Dx Eval 00908 Tympanometry and Reflex Threshold Measurements 92580 Unlisted Evaluation and Management Service 08853 ? Extracted from:Title: [facility]- worsening cough Author: YESNEIA ROSA DO Date: 01/02/21 1.?Cough Likely viral/reactive. - Will obtain CXR to initiate w/u and assess for underlying lobar infiltrates. - Recommend f/u with PCM and PFTs. 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 - Albuterol inhaler prn - OK to [...] 4 hr,PRN:shortness of breath or wheezing, Pharmacy: [facility] [Federal Rx: #8.5 last filled 01/02/21] Office Visit Level 3 Est 43623 ? 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 ?I was immediately?available in the clinic for consultation during the encounter. ?The case WAS discussed with me [id number] at the time of the encounter. ?I agree with the assessment and plan for this encounter as described above.? Extracted from:Title: Occ health physical Author: ROBBIE GONZALEZ DO Date: 12/27/20 EXAM, FORMAL OCCUPATIONAL HEALTH PROGRAM INCLUDING HEARING CONSERVATION PROGRAM, PERIODIC FOR CONTINUED SURVEILLANCE FOR OCCUPATIONAL WORKPLACE EXPOSURE Ordered: Administration,Pt-Foc [facility] [place] Asses Inst 02917 Periodic Comp Preventive Med 18 to 39 years Est 73300 ? Member has completed required medical surveillance screenings and medical evaluation for employment.? Required medical surveillance items updated in [facility].? PT meets medical criteria for job requirement. Pt is cleared for duty without any medical restrictions.? ? 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 Information obtained from review of [facility], [place], and [facility]. PHA review complete.??MHA reviewed. PHAQ reviewed in [facility]. Medical record and [id number] reviewed and updated. 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 No MR/DR/FR. Member meets MSD at this time. F/u with PCM as needed. Ordered: Administration,Pt-Foc Hlth Rsk Asses Inst 20910 Unlisted E&M Service 80507 ? 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 Ordered: Administration,Pt-Foc Hlth Rsk Asses Inst 00735 Unlisted E&M Service 89017 ? 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 Member is NOT PRAP/AUoF.? MHA reviewed with patient. No concerns identified as noted above.? Follow up with PCM as needed.? Next MHA in 1 year. ? This 5 minute medical discussion was completed using telephone communication between provider and patient. ? ? ? Ordered: Administration,Pt-Foc Hlth Rsk Asses Inst 98420 Brief Comm Tech-Based Svc, Virt, Phys, Est Pt; 5-10 Min Med Dis G2012 Unlisted E&M Service 34843 ? Follow Up With When Contact Information Follow up with primary care provider Only if needed Additional Instructions: Readiness Follow Up No qualifying data available. 05/02/2024 Ambulatory Pharmacy Functional Status Combined list of recent functional and cognitive assessments recorded at Department of Defense and Veterans Affairs (VA).VA Functional Stirling Measurement (FIM) Scale: 1 = Total Assistance (Subject = 0% +), 2 = Maximal Assistance (Subject = 25% +), 3 = Moderate Assistance (Subject = 50% +), 4 = Minimal Assistance (Subject = 75% +), 5 = Supervision, 6 = Modified Stirling (Device), 7 = Complete Stirling (Timely, Safely). Assessment Date/Time Source Assessment Type Assessment Skill Assessment Score Assessment Details No data available for this section
[2024-05-02 12:16] LABS: Alanine Aminotransferase 18 U/L (0-40); Albumin Level 4.6 g/dL (3.5-5.0); Alkaline Phosphatase 56 U/L (39-117); Anion Gap 9 (12-20); Aspartate Amino Transferase 23 U/L (5-37); Bilirubin Total 0.6 mg/dL (0.0-1.0); Blood Urea Nitrogen 14 mg/dL (9-16); Calcium 9.9 mg/dL (8.4-10.2); Carbon Dioxide 30 mmol/L (22-29); Chloride 106 mmol/L (96-108); Cholesterol 183 mg/dL (<200); Estimated Glomerular Filt Rate > 60; Glucose Fasting 86 mg/dL (60-99); HDL Cholesterol 63 mg/dL (>40); LDL Cholesterol Calculated 109 mg/dL (<100); Potassium 4.2 mmol/L (3.3-5.1); Sodium 141 mmol/L (135-145); TSH reflex Free T4 1.25 uIU/mL (0.32-4.0); Total Protein 7.3 g/dL (6.5-8.0); Triglycerides 59 mg/dL (<150)
[2024-05-02 14:06] LABS: Appearance Urine Clear; Color Urine Yellow; Glucose Urine UA Negative (Negative); Leukocyte Esterase Urine Negative (Negative); Nitrite Urine Negative (Negative); PH 5.5 (5.0-9.0); Urine Blood Negative (Negative); Urine Ketones Negative (Negative); Urine Protein Negative (Neg-Trace)
[2024-05-02 14:35] LABS: Creatinine Urine 94.55 mg/dL; Microalbumin Urine < 5.0 mg/L
== END 2024-05-02 10:10 | disposition home or self-care (01) ==
LOC: HO.WFDLDS 10:09
PROVIDERS: Visit Provider Family Medicine
DX: Z00.00 Encounter for general adult medical examination without abnormal findings (principal); I10 Essential (primary) hypertension
CPT/HCPCS: 36415; 80053; 80061; 81003; 82043; 82570; 84443

== ENCOUNTER → 2024-05-25 12:43 | Outpatient (BNVA) | payer OTHER, SELFPAY | PROVIDERS: PCP Family Medicine; Visit Provider Nurse Practitioner Family | DX: N52.9 Male erectile dysfunction, unspecified (principal) | CPT/HCPCS: 81003; 99212 ==

== ENCOUNTER → 2024-06-01 15:06 | Outpatient (BNVA) | payer OTHER, SELFPAY | PROVIDERS: PCP Family Medicine; Visit Provider Family Medicine ==

== ENCOUNTER → 2024-06-01 15:06 | Outpatient (AMB) | payer OTHER, SELFPAY ==
--- NOTE | 2024-06-01 15:04 | MHC.PC.OV ---
Intake Visit Reasons: f/u CPE-labs via telemedicine Allergies No Known Allergies Allergy (Verified 06/01/24 15:04) Tobacco use date assessed: 05/02/24 Dental Screening Dental Screen Date: 05/02/24 HPI f/u CPE-labs via telemedicine HPI Details 34 y/o male presents to f/u labs via telemedicine. Labs drawn 05/02/24. Reviewed labs with pt. Triglycerides 59. TC 183. LDL 109. HDL 63. TSH 1.25. Liver enzymes are fine. HPI Comments History of Present Illness Details Documentation assistance for Benoit Ruth MD, was provided by Portillo Jurado,? Lab Coordinator on 06/01/2024 at 3:52 PM EST. I, Dr. Ruth, have read, observed, and verified documentation. ?? [facility] Medical History Bursitis of left shoulder Inguinal hernia Surgical History Hx of colonoscopy Hx of oral surgery Hx of right inguinal hernia repair Status post rhinoplasty Family History Unknown No family history of colorectal cancer Social History Household Members: Spouse and Children Household Members Other:: , 2 sons Housing: House Patient Tobacco Use Status: Never used Tobacco Tobacco use type: Smokeless Tobacco e-Cigarette/Vaping Use: Currently Using Second Hand Smoke Exposure: No service: Yes Current occupational status: employed 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 Lawrence Hightower, Virginia Martinez, Calin Kellogg and colleagues, with an educational ganesh from [employer]. Review of Systems Const Denies chills, Denies fatigue, Denies fever(s), Denies headache(s) and Denies weakness ENT Denies dizziness and Denies headache(s) Card Denies dyspnea Resp Denies cough, Denies dyspnea, Denies wheezing and Denies other (shortness of breath) Musc Denies numbness and Denies tingling Neuro Denies dizziness, Denies headache(s), Denies numbness, Denies tingling and Denies weakness Psych Denies anxiety and Denies depression Endo Denies fatigue Aller/Immun Denies wheezing Physical exam (Primary Care) Tobacco/Smoking Status: Tobacco use Status Tobacco use date assessed 05/02/24 06/01/24 15:05 Patient Tobacco Use Status Never used Tobacco 06/01/24 15:05 Tobacco use type Smokeless Tobacco 06/01/24 15:05 e-Cigarette/Vaping Use Currently Using 06/01/24 15:05 Thrive Assessment: Date of Thrive Assessment Date Thrive assessed 05/02/24 06/01/24 15:05 Telehealth Telehealth Telehealth Platform: Telephone Location of provider rendering services: practice address Location of patient: address on file Patient Identification confirmed using: Name, : Yes Telehealth method: voice only Patient verbally consented to treatment: Yes Patient verbally consented to billing insurance company: Yes Patient informed of any privacy concerns related to visit: Yes Minutes spent on Phone/Video with Pt.: 5 Coding Level of Care Code Tele Est Pt Level 2 (83274) Diagnoses Elevated LDL cholesterol level E78.00 Erectile dysfunction N52.9 Assessment & Plan Assessment & Plan (1) Elevated LDL cholesterol level: Code(s): E78.00 - Pure hypercholesterolemia, unspecified Category: Medical Plan: Mildly?elevated?LDL?cholesterol?though?his?HDL?ratios?are?good No?indication?for?a?medicine?at?this?time Work?at?diet?low?in?saturated?fats?and?cholesterol Can?follow-up?again?at?his?next?physical (2) Erectile dysfunction: Code(s): N52.9 - Male erectile dysfunction, unspecified Category: Medical Plan: Patient?is?using?Cialis?and?is?followed?by?Urology Continue?Cialis Follow-up?with?urology?as?recommended Orders: Orders Comprehensive [place]. Panel Fast Today Z00.00 - Encounter for general adult medical examination without abnormal findings Lipid Panel Today Z00.00 - Encounter for general adult medical examination without abnormal findings TSH reflex Free T4 Today Z00.00 - Encounter for general adult medical examination without abnormal findings Complete Blood Count Auto Diff Today Z00.00 - Encounter for general adult medical examination without abnormal findings Microalbumin, Random (w Creat) Today I10 - Essential (primary) hypertension, Z00.00 - Encounter for general adult medical examination without abnormal findings UA and rflx microscopic Today Z00.00 - Encounter for general adult medical examination without abnormal findings
--- OUTSIDE RECORDS SUMMARY | 2024-06-01 16:11 | XMS_ITS | Clinical Summary ---
Author Organization [facility] Address [address] [place] [address] Care Team Providers Care Groundskeeper Porter Name Role Phone Unavailable Primary Care Provider Unavailabl e Allergies No known active allergies Medications No known medications Social History Tobacco Use Types Packs/Day Years Used Date Smoking Tobacco: Never Assessed Sex and Gender Information Value Date Recorded Sex Assigned at Not on file Gender Identity Not on file Sexual Orientation Not on file Last Filed Vital Signs Vital Sign Reading Time Taken Comments Blood Pressure 123/84 04/29/2021 2:44 PM EST Pulse 85 04/29/2021 2:44 PM EST Temperature 36.9 ??C (98.5 ??F) 04/29/2021 2:44 PM ES T Respiratory Rate - - Oxygen Saturation 98% 04/29/2021 2:44 PM EST Inhaled Oxygen Concentration - - Weight 79.4 kg (175 lb) 04/29/2021 2:44 PM EST Height 177.8 cm (5' 10 ) 04/29/2021 2:44 PM EST Body Mass Index 25.11 04/29/2021 2:44 PM EST Plan of Treatment Health Maintenance Due Date Last Done Comments Hepatitis C Virus Screening 1989 HIV Screening 2002 DTaP/Tdap/Td Vaccines (1 - Tdap) 2008 Hepatitis B Vaccines (1 of 3 - 19+ 3-dose series) 2008 Influenza Vaccine 11/19/2023 COVID-19 Vaccine (2023-2 5 season) 2023 HPV Vaccines Aged Out No longer eligi ble based on patient's age to complete this topic Pneumococcal Vaccine: Pediat edvin (0-5 Years) and At-Risk Patients (6 to 49 Years) Aged Out No longer eligible b ased on patient's age to complete this topic [facility] [address]on Mars[place]uttre[place] [address]
--- OUTSIDE RECORDS SUMMARY | 2024-06-01 16:11 | XMS_ITS | Clinical Summary ---
Author Organization [facility] Address [address] [place] [address] Phone Care Team Providers Care User Interface Developer Name Role Phone Unavailable Primary Care Provider Unavailabl e Social History Tobacco Use Types Packs/Day Years Used Date Smoking Tobacco: Never Assessed Sex and Gender Information Value Date Recorded Sex Assigned at Not on file Legal Sex Male 12:13 PM EST Gender Identity Not on file Sexual Orientation Not on file Plan of Treatment Health Maintenance Due Date Last Done Comments DTaP,Tdap,and Td Vaccines (5 - Tdap) 07/10/2001 07/09/2001, 12/25/1994, 12/22/1990, Additional history exists Varicella Vaccines (1 of 2 - 13+ 2-dose series) 2002 Influenza Vaccines (#1) 2023 COVID-19 Vaccine (2023- season) 2023 IPV Vaccines Completed 12/25/1994, 07/1990, 1989, Additional history exists MMR Vaccines Completed 01/22/1996, 05/18/1990 Hepatitis B Vaccines Completed 04/21/2000, 11/13/1999, 09/30/1999 HIB Vaccines Aged Out No longer eligi ble based on patient's age to complete this topic HPV Vaccines Aged Out No longer eligi ble based on patient's age to complete this topic Hepatitis A Vaccines Aged Out No long er eligible based on patient's age to complete this topic Men B Vaccine Aged Out No longer elig ible based on patient's age to complete this topic Meningococcal Vaccine Aged Out No lucila sis eligible based on patient's age to complete this topic Pneumococcal Vaccine Aged Out No long er eligible based on patient's age to complete this topic
--- OUTSIDE RECORDS SUMMARY | 2024-06-01 16:11 | XMS_ITS | Encounter Summary ---
Author Organization [facility] Address [address] [place] [id number] Phone Care Team Providers Care Sand Mixer Name Role Phone Gagan Patel MD Primary Care Provider [phone] Encounter Details Date Type Department Care Team (Late st Contact Info) Description 06/18/2017 Conversion Encounter [facility] [place] [address] [place] [address] Gagan Patel MD [address] [place] [address] Social History Tobacco Use Types Packs/Day Years Used Date Smoking Tobacco: Never Assessed Sex and Gender Information Value Date Recorded Sex Assigned at Not on file Legal Sex Male 12:13 PM EST Gender Identity Not on file Sexual Orientation Not on file documented as of this encounter Plan of Treatment Not on file documented as of this encounter Visit Diagnoses Not on filedocumented in this encounter Care Teams Sand Mixer Relationship Specialty Start Date End Date Gagan Patel MD [address] [place] [address] PCP - General 10/26/07 02/07/20 documented as of this encounter
== END ==
LOC: HO.HMCFM 15:06
PROVIDERS: PCP Family Medicine; Visit Provider Family Medicine
DX: E78.00 Pure hypercholesterolemia, unspecified (principal); N52.9 Male erectile dysfunction, unspecified

== ENCOUNTER 2024-10-04 11:36 | Outpatient (AMB) | payer OTHER, SELFPAY ==
--- NOTE | 2024-10-04 11:38 | A.OFFVIS_ITS ---
Intake Visit Reasons: 6m Intake Note: Patient is Present for 6m Follow Up Urology Medication: Tadalafil Antibiotic Allergies:None Blood Thinners: None Wastewater Manager Required: No Allergies No Known Allergies Allergy (Verified 10/04/24 16:05) Medication List - Last Reconciled 10/04/24 by ZANDER Abebe albuterol sulfate 90 mcg/actuation 2 puffs inhalation Q6H PRN fluticasone propionate 50 mcg/actuation (Flonase Allergy Relief) 1 spray intranasal DAILY PRN multivitamin 1 tab PO DAILY tadalafil 10 mg (1/2 x 20 mg) PO DAILY PRN 90 days HPI Comments Details: Ezra is a very pleasant 34-year-old male patient of Dr. Ruth. He has a past medical history of bursitis of left shoulder and inguinal hernia. He presents to the office today for follow-up of his erectile dysfunction. In disc ussion with the patient today he reports to be doing and feeling well. He reports utilizing p.r.n. Cialis 10 mg 2-3 times per week with good effect. However most recently has not needed to utilize this as he is not currently sexually active. He denies any bothersome urinary issues or concerns. Previous workup has included hypogonadal labs as noted and trended below. 04/11 testosterone 618, free testosterone 137.2 08/11 estradiol 19, FSH 14.2, LH 6.3, prolactin 6.7, SHBG 27 In discussion with the patient today he reports to be happy with his erections on PRN tadalafil. In office urinalysis results reviewed with the patient today. When asked he denies any bothersome urinary issues. He denies urinary urgency, urinary frequency, incontinence, nocturia, hematuria, dysuria, foul smelling ur ine, changes to urinary stream, flank pain, fever, and or chills. He is happy with his current voiding parameters. He otherwise offers no other issues or concerns at this time. 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 Current occupational exposures/hazards: No Cognitive needs: No Hearing needs: No Vision needs: No Review of Systems Const All systems reviewed & are unremarkable except as noted in HPI and below Physical Exam Const General: cooperative, healthy appearing, comfortable, no acute distress, well developed, alert and awake Orientation/consciousness: patient oriented x3 Limitations: no limitations HEENT Head: Yes normal to inspection, Yes normocephalic and Yes atraumatic Ears: hearing grossly normal bilaterally Eyes General: appearance normal, both eyes and all related structures Neck Neck: Yes normal visual inspection and Yes trachea midline Chest Chest palpation & inspection: normal inspection of the chest Resp Effort & Inspection: normal respiratory effort and able to speak in complete sentences Cardio Rate: regular rate GI Inspection: Yes normal to inspection General: Yes no CVA tenderness Back/Spine/Pelvis Back: no CVA tenderness Skin General skin exam: no rashes or lesions noted Neuro General: patient oriented x3 Extrem General: Yes normal to inspection Psych Appearance: grossly normal and well kempt Mental Status: mental status grossly normal Speech and movement: Normal speech and movement present and Clear speech present Affect: normal affect Attitude: cooperative Thought process: Normal thought process present Thought content: Normal thought content present Insight: Fair insight present (Psych) Judgement: Fair judgement present (Psych) Results AMB Urinalysis, Automated UA Leukoctes 0 Will/uL Last Edit by Amrita Yoo on 10/04/24 11:44 UA Nitrite Negative Last Edit by Amrita Yoo on 10/04/24 11:44 UA Urobilinogen 3.5 mg/dL Last Edit by Amrita Yoo on 10/04/24 11:44 UA Protein 0 mg/dL Last Edit by Amrita Yoo on 10/04/24 11:44 UA pH 7.5 Last Edit by Amrita Yoo on 10/04/24 11:44 UA Blood 0 Alex/uL Last Edit by Armita Yoo on 10/04/24 11:44 UA Specific [place] 1.010 Last Edit by Amrita Yoo on 10/04/24 11:44 UA Ketone Negative Last Edit by Amrita Yoo on 10/04/24 11:44 UA Bilirubin 0 mg/dL Last Edit by Amrita Yoo on 10/04/24 11:44 UA Glucose 0 mg/dL Last Edit by Amrita Yoo on 10/04/24 11:44 Results Reviewed Results Reviewed: Laboratory Last Values Urine pH (Auto) 7.5 10/04/24 08:21 Specific [place] (Auto) 1.010 10/04/24 08:21 Urine Protein (Auto) 0 mg/dL 10/04/24 08:21 Glucose (UA)(Auto) 0 mg/dL 10/04/24 08:21 Urine Ketones (Auto) Negative 10/04/24 08:21 Urine Blood (Auto) 0 Alex/uL 10/04/24 08:21 Urine Nitrite (Auto) Negative 10/04/24 08:21 Urine Bilirubin (Auto) 0 mg/dL 10/04/24 08:21 Urine Urobilinogen (Auto) 3.5 mg/dL 10/04/24 08:21 Leukocyte Esterase (Auto) 0 Will/uL 10/04/24 08:21 Assessment & Plan Assessment & Plan (1) Erectile dysfunction: Code(s): N52.9 - Male erectile dysfunction, unspecified Category: Medical Plan In office urinalysis results reviewed with the patient today; as noted above. Discussed lifestyle modifications to assist with erectile dysfunction. Continue p.r.n. 10 mg of Cialis He denies any bothersome urinary issues or concerns. He is happy with current voiding parameters. Follow-up in 3-6 months; or sooner with any issues, concerns, and or questions. Orders: Orders AMB Urinalysis Automated Today Z13.9 - Encounter for screening, unspecified Medications: Changed From tadalafil administer approximately 30min before sexual activity; do not use more than 1 dose per 24hrs 10 mg (1/2 x 20 mg) PO DAILY 30 days PRN 20 tabs 4RF sexual activity To tadalafil administer approximately 30min before sexual activity; do not use more than 1 dose per 24hrs 10 mg (1/2 x 20 mg) PO DAILY PRN 45 tabs 3RF sexual activity 90 days Patient Instructions: The patient had an opportunity to ask questions regarding the treatment plan. All questions were answered. Physical exam, labs, and imaging were discussed and reviewed in detail. As well as risks, benefits, and discussion of treatment choices. No major barriers to understanding were identified. The patient expressed understanding and agreement with the above treatment plan. The patient was made aware they should contact our office by phone for worsening of their current condition, the appearance of new symptoms, or with any questions or concerns. Compliance is encouraged with any medications and follow up testing that is ordered. It is a privilege to be allowed the opportunity to participate in? your urological care.? Again, if you have any questions or concerns If you have any questions or concerns please do not hesitate to contact me. The office is [phone]. This note is constructed using voice recognition software. While every effort has been made to ensure accuracy engineer byproduct errors may have been included. Yours sincerely, ZANDER Abebe Coding Level of Care Code Est Pt Level 3 (22307) Diagnoses Erectile dysfunction N52.9
== END 2024-10-04 12:14 | disposition home or self-care (01) ==
PROVIDERS: PCP Family Medicine; Visit Provider Nurse Practitioner Family
DX: Z13.9 Encounter for screening, unspecified (principal); N52.9 Male erectile dysfunction, unspecified
CPT/HCPCS: 99213

== ENCOUNTER → 2024-10-04 11:36 | Outpatient (BNVA) | payer OTHER, SELFPAY | PROVIDERS: PCP Family Medicine; Visit Provider Nurse Practitioner Family | DX: N52.9 Male erectile dysfunction, unspecified (principal) | CPT/HCPCS: 81003; 99212 ==

== ENCOUNTER 2025-02-01 11:29 | Outpatient (AMB) | payer OTHER, SELFPAY ==
--- NOTE | 2025-02-01 11:32 | MHC.OFFVIS ---
Intake Visit Reasons: 4m follow up Intake Note: patient presents today for: 4mo follow up urology medications: tadalafil blood thinners: none Drive Away Driver Required: No Accompanied by: Self / Same As Patient Allergies No Known Allergies Allergy (Verified 02/01/25 14:52) Medication List - Last Reconciled 02/01/25 by ZANDER Abebe albuterol sulfate 90 mcg/actuation 2 puffs inhalation Q6H PRN fluticasone propionate 50 mcg/actuation (Flonase Allergy Relief) 1 spray intranasal DAILY PRN multivitamin 1 tab PO DAILY tadalafil (Cialis) 10 mg PO DAILY PRN HPI Comments Details: Ezra is a very pleasant 34-year-old male patient of Dr. Ruth. He has a past medical history of bursitis of left shoulder and inguinal hernia. He presents to the office today for follow-up of his erectile dysfunction. In discussion with the patient today he reports to be doing and feeling well. He reports utilizing p.r.n. Cialis 10 mg 2-3 times per week with good effect. He denies any bothersome urinary issues or concerns. In office urinalysis results reviewed with the patient today 3+ leukocytes otherwise within normal limits. However, he denies any UTI like symptoms and or lower urinary tract symptoms. Previous workup has included hypogonadal labs as noted and trended below. 04/11 testosterone 618, free testosterone 137.2 08/11 estradiol 19, FSH 14.2, LH 6.3, prolactin 6.7, SHBG 27 In discussion with the patient today he reports to be happy with his erections on PRN tadalafil. He denies urinary urgency, urinary frequency, incontinence, nocturia, hematuria, dysuria, foul smelling urine, changes to urinary stream, flank pain, fever, and or chills. He is happy with his current voiding parameters. He otherwise offers no other issues or concerns at this time. [facility] Medical History Bursitis of left shoulder Inguinal hernia Surgical History Hx of colonoscopy Hx of oral surgery Hx of right inguinal hernia repair Status post rhinoplasty Family History Unknown No family history of colorectal cancer Social History Household Members: Spouse and Children Household Members Other:: , 2 sons Housing: House Patient Tobacco Use Status: Never used Tobacco Tobacco use type: Smokeless Tobacco e-Cigarette/Vaping Use: Currently Using Second Hand Smoke Exposure: No service: Yes Current occupational status: employed 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 Current occupational exposures/hazards: No Cognitive needs: No Hearing needs: No Vision needs: No Review of Systems Const All systems reviewed & are unremarkable except as noted in HPI and below Physical Exam Const General: cooperative, healthy appearing, comfortable, no acute distress, well developed, alert and awake Orientation/consciousness: patient oriented x3 Limitations: no limitations HEENT Head: Yes normal to inspection, Yes normocephalic and Yes atraumatic Ears: hearing grossly normal bilaterally Eyes General: appearance normal, both eyes and all related structures Neck Neck: Yes normal visual inspection and Yes trachea midline Chest Chest palpation & inspection: normal inspection of the chest Resp Effort & Inspection: normal respiratory effort and able to speak in complete sentences Cardio Rate: regular rate GI Inspection: Yes normal to inspection General: Yes no CVA tenderness Back/Spine/Pelvis Back: no CVA tenderness Skin General skin exam: no rashes or lesions noted Neuro General: patient oriented x3 Extrem General: Yes normal to inspection Psych Appearance: grossly normal and well kempt Mental Status: mental status grossly normal Speech and movement: Normal speech and movement present and Clear speech present Affect: normal affect Attitude: cooperative Thought process: Normal thought process present Thought content: Normal thought content present Insight: Fair insight present (Psych) Judgement: Fair judgement present (Psych) Results AMB Urinalysis, Automated UA Leukoctes 500 Will/uL Last Edit by ALBERTINA Schaffer on 02/01/25 11:43 UA Nitrite Last Edit by ALBERTINA Schaffer on 02/01/25 11:43 UA Urobilinogen 0.2 mg/dL Last Edit by ALBERTINA Schaffer on 02/01/25 11:43 UA Protein 0 mg/dL Last Edit by ALBERTINA Schaffer on 02/01/25 11:43 UA pH 6.5 Last Edit by ALBERTINA Schaffer on 02/01/25 11:43 UA Blood 0 Alex/uL Last Edit by ALBERTINA Schaffer on 02/01/25 11:43 UA Specific [place] 1.015 Last Edit by ALBERTINA Schaffer on 02/01/25 11:43 UA Ketone Last Edit by ALBERTINA Schaffer on 02/01/25 11:43 UA Bilirubin 0 mg/dL Last Edit by ALBERTINA Schaffer on 02/01/25 11:43 UA Glucose 0 mg/dL Last Edit by ALBERTINA Schaffer on 02/01/25 11:43 Results Reviewed Results Reviewed: Laboratory Last Values Urine pH (Auto) 6.5 02/01/25 11:42 Specific [place] (Auto) 1.015 02/01/25 11:42 Urine Protein (Auto) 0 mg/dL 02/01/25 11:42 Glucose (UA)(Auto) 0 mg/dL 02/01/25 11:42 Urine Blood (Auto) 0 Alex/uL 02/01/25 11:42 Urine Bilirubin (Auto) 0 mg/dL 02/01/25 11:42 Urine Urobilinogen (Auto) 0.2 mg/dL 02/01/25 11:42 Leukocyte Esterase (Auto) 500 Will/uL 02/01/25 11:42 Assessment & Plan Assessment & Plan (1) Erectile dysfunction: Code(s): N52.9 - Male erectile dysfunction, unspecified Category: Medical Plan In office urinalysis results reviewed with the patient today; as noted above. He currently denies any UTI like symptoms Discussed lifestyle modifications to assist with erectile dysfunction. Continue p.r.n. 10 mg of Cialis; refills provided He denies any bothersome urinary issues or concerns. He is happy with current voiding parameters. Follow-up in 6 months; or sooner with any issues, concerns, and or questions. Orders: Orders AMB Urinalysis Automated Today Z13.9 - Encounter for screening, unspecified Medications: Refilled tadalafil (Cialis) administer approximately 30min before sexual activity; do not use more than 1 dose per 24hrs 10 mg PO DAILY PRN 90 tabs 3RF sexual activity Patient Instructions: The patient had an opportunity to ask questions regarding the treatment plan. All questions were answered. Physical exam, labs, and imaging were discussed and reviewed in detail. As well as risks, benefits, and discussion of treatment choices. No major barriers to understanding were identified. The patient expressed understanding and agreement with the above treatment plan. The patient was made aware they should contact our office by phone for worsening of their current condition, the appearance of new symptoms, or with any questions or concerns. Compliance is encouraged with any medications and follow up testing that is ordered. It is a privilege to be allowed the opportunity to participate in? your urological care.? Again, if you have any questions or concerns If you have any questions or concerns please do not hesitate to contact me. The office is [phone]. This note is constructed using voice recognition software. While every effort has been made to ensure accuracy auto clutch specialist errors may have been included. Yours sincerely, ZANDER Abebe Coding Level of Care Code Est Pt Level 3 (95444) Diagnoses Erectile dysfunction N52.9
== END 2025-02-01 12:32 | disposition home or self-care (01) ==
LOC: HO.HUSH 11:30
PROVIDERS: PCP Family Medicine; Visit Provider Nurse Practitioner Family
DX: N52.9 Male erectile dysfunction, unspecified (principal); Z13.9 Encounter for screening, unspecified
CPT/HCPCS: 99213

== ENCOUNTER → 2025-02-01 11:29 | Outpatient (BNVA) | payer OTHER, SELFPAY | PROVIDERS: PCP Family Medicine; Visit Provider Nurse Practitioner Family | DX: N52.9 Male erectile dysfunction, unspecified (principal) | CPT/HCPCS: 81003; 99212 ==

== ENCOUNTER 2025-02-22 12:56 | Outpatient (AMB) | payer OTHER, SELFPAY ==
--- NOTE | 2025-02-22 13:01 | A.OFFPC_ITS ---
Vital Signs 02/22/25 13:06 Height 5 ft 10 in Weight 178 lb 8 oz BMI 25.6 BP 105/66 Blood Pressure Location Lt brachial Position Sitting Respiration 12 Pulse 83 Pulse Source Pulse Oximeter Temp 97.2 F Temp Source Oral Pulse Oximetry (%) 99 Oxygen Delivery Method Room Air Intake Visit Reasons: Requesting GI referral for IBS Intake Note: Patient is requesting for GI referral for ibs Saw Cleaner Required: No Allergies No Known Allergies Allergy (Verified 02/22/25 13:28) Medication List - Last Reconciled 02/22/25 by Aruna Chen, [facility]- albuterol sulfate 90 mcg/actuation 2 puffs inhalation Q6H PRN bupropion HCl SR 200 mg PO QAM fluticasone propionate 50 mcg/actuation (Flonase Allergy Relief) 1 spray intranasal DAILY PRN multivitamin 1 tab PO DAILY tadalafil (Cialis) 10 mg PO DAILY PRN Tobacco use date assessed: 02/22/25 Dental Screening Dental Screen Date: 02/22/25 Did you have a dental visit in the last 12 months?: Yes Did you have a dental problem in the last 6 months where you did not have access to dental care?: No Was dental information given to patient?: Patient has dentist HPI HPI Comments History of Present Illness Details History of Present Illness The patient is a 34-year-old male presenting for evaluation of symptoms consistent with Irritable Bowel Syndrome. Irritable Bowel Syndrome: - The patient reports a history of frequ ent and sudden onset of needing to use the bathroom, which has been occurring for months, if not a couple of years. - He experiences a significant urge to d efecate every morning, particularly after he starts driving, requiring him to plan his travel around available bathrooms. - The symptoms are characterized by freq uent diarrhea and unformed stools. - He has tried taking soluble fiber, whi ch has helped slightly, as well as yogurts and other dietary changes, with limited success. - He denies being constipated for extend ed periods of time. - He does not report abdominal pain, but rather an overwhelming urgency to defecate. - He takes Wellbutrin and tadalafil. - There is no family history of colorect al cancer, though his paternal grandmother has a history of stomach ulcers. Hemorrhoids: - The patient had a colonoscopy in 2022 for internal hemorrhoids, at which time banding was performed. - He reports no recent blood in his stoo l, though in the past has had bleeding associated with the hemorrhoids, especially with frequent bowel movements. Past Medical History - Irritable Bowel Syndrome - Internal hemorrhoids, status post band ing in 2022. - History of hernia repair. Review of Systems - Gastrointestinal: Reports frequent, ur gent bowel movements and diarrhea for months to years. Denies extended periods of constipation and abdominal pain. He notes his stools are often unformed. Reports a history of internal hemorrhoids; denies recent hematochezia. Physical Exam General: Well developed, well nourished, in no acute distress. Appears stated age. Head: Normocephalic, atraumatic. Eyes: Pupils are equal, round and reactive to light and accommodation. Conjunctivae are clear. Scleras nonicteric Abdomen: Bowel sounds present in all quadrants. The abdomen is soft, nontender, with no masses or organomegaly noted. A little tingly down in the lower abdomen, especially where a hernia repair was done, but not causing significant discomfort. No hernias are noted. Psych: Mood and affect appropriate. Results - Colonoscopy (2022): Performed for inte rnal hemorrhoids, which were banded. Medical Decision Making The patient is a 34-year-old male with a chronic history of urgent, frequent bowel movements and diarrhea, consistent with Irritable Bowel Syndrome with Diarrhea (IBS-D). His symptoms significantly impact his quality of life and have been refractory to dietary changes and fiber supplementation. A referral to Gastroenterology is warranted for comprehensive evaluation; however, given the anticipated delay in being seen, initiating interim treatment is appropriate. Two primary treatment options were discussed with the patient: a short course of Rifaximin to reset the gut ken, and Amitriptyline to modulate visceral hypersensitivity and quiet nerve responses in the gut. The risks, benefits, and treatment duration for each were reviewed, including the short-term nature of Rifaximin versus the longer-term use of Amitriptyline, and their respective side effect profiles. The patient elected to proceed with Amitriptyline. The plan is to start a low dose of Amitriptyline 10 mg at bedtime and follow up in four weeks to assess his response and titrate the dose if necessary. Plan 1. Irritable Bowel Syndrome - Two treatment options were discussed w rene awaiting a GI appointment: a course of the antibiotic Rifaximin or the medication Amitriptyline. - The patient elected to start Amitripty line to help quiet the nerve endings in the intestines. - A prescription for Amitriptyline 10 mg , to be taken once daily at bedtime, will be sent to the patient's local pharmacy. - A referral will be placed to Gastroent erology for further evaluation, with the understanding that there may be a significant wait time for an appointment. - The patient will continue with his cur rent fiber regimen. - A follow-up appointment is scheduled i n four weeks to assess the efficacy of the medication. Patient Instructions - You will start taking Amitriptyline 10 mg once a day at bedtime. - Please be aware that it may take about two weeks for you to notice an improvement in your symptoms. - The most common side effect is dry jeremias th. Contact us if this becomes severe. - Continue to take your soluble fiber almazan pplement as you have been. - We are sending a one-month supply of t medication to your local [facility] pharmacy. - A referral will be sent to the gastroe nterology (GI) department for a specialist consultation. It may take some time to get an appointment. - Please schedule a follow-up appointmen dawn in our office in about four weeks to review your symptoms. Consent The patient provided verbal consent for the outlined treatment plan. The risks, benefits, and alternatives to starting Amitriptyline were discussed. Alternatives included a course of Rifaximin or deferring treatment until a Gastroenterology consultation. The primary risks of Amitriptyline at this low dose were discussed, mainly dry mouth. The patient acknowledged understanding and agreed to proceed with a trial of Amitriptyline 10 mg at bedtime. Patient was informed and verbally consented to the use of an ambient scribe for clinic note documentation during this visit. Total time spent caring for the patient today was 30 minutes. This includes time spent before the visit reviewing the chart, time spent during the visit, and time spent after the visit on documentation, reviewing laboratory results, diagnostic imaging, medications, performing a medically necessary evaluation, counseling on diagnoses, care coordination, ordering appropriate tests, ordering appropriate medications, review of tests performed by other providers, reporting test results with the patient, communication with other healthcare providers. [facility] Medical History (Updated 02/22/25 @ 13:34 by Aruna Chen [facility]) Bursitis of left shoulder Inguinal hernia Surgical History (Updated 02/22/25 @ 13:36 by Aruna Chen [facility]) Hx of colonoscopy (~2022) Hx of oral surgery Hx of right inguinal hernia repair Status post rhinoplasty Family History Unknown No family history of colorectal cancer Social History Household Members: Spouse and Children Household Members Other:: , 2 sons Housing: House Patient Tobacco Use Status: Never used Tobacco Tobacco use type: Smokeless Tobacco e-Cigarette/Vaping Use: Currently Using Second Hand Smoke Exposure: No service: Yes Current occupational status: employed 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 1. Little interest or pleasure in doing things: several days 2. Feeling down, depressed, or hopeless: several days 3. Trouble falling or staying asleep, or sleeping too much: not at all 4. Feeling tired or having little energy: not at all 5. Poor appetite or overeating: not at all 6. Feeling bad about yourself - or that you are a failure or have let yourself or your family down: not at all 7. Trouble concentrating on things, such as reading the newspaper or watching television: several days 8. Moving or speaking so slowly that other people could have noticed. Or the opposite - being so fidgety or restless that you have been moving around a lot more than usual: not at all 9. Thoughts that you would be better off or of hurting yourself in some way: not at all Total score: 3 Depression Screening Interpretation: Negative Depression Screening Done: Yes 62322 - PHQ-9 Billing: Yes Source: Developed by Drs. Lawrence Hightower, Virginia Martinez, Calin Kellogg and colleagues, with an educational ganesh from [employer]. Thrive Questionnaire Date Thrive assessed: 05/02/24 I am a: Patient What is your living situation today?: I have a steady place to live Within the past 12 months, did the food you bought not last and you didn't have the money to get more?: Never true Within the past 12 months, did you worry whether your food would run out before you got money to buy more?: Never true Do you have trouble paying for medicines?: No Do you have trouble getting transportation to medical appointments?: No Do you have trouble paying your heating and electricity bill?: No Do you have trouble taking care of your child, family member or friend?: No Do you have trouble with day-to-day activities such as bathing, preparing meals, shopping, managing finances, etc.?: No Are you currently unemployed and looking for a job?: No Are you interested in more education?: No Please select the resources that you would like help with: None Currently or been in a relationship where the following occur: No concerns reported THRIVE Score: 0 AUDIT C Alcohol Use Questionnaire (AUDIT-C) 1. How often do you have a drink containing alcohol?: Never 3. How often do you have six or more drinks on one occasion?: Never Total Score: 0 Score Reviewed/Action Taken: Yes PALLAVI-7 AMB Questionnaire PALLAVI-7 Date PALLAVI - 7 assessed: 02/22/25 Feeling nervous, anxious, or on edge: 0 = Not at all Not being able to stop or control worryin = Not at all Worrying too much about different things: 0 = Not at all Trouble relaxin = Not at all Being so restless that it is hard to sit still: 0 = Not at all Becoming easily annoyed or irritable: 0 = Not at all Feeling afraid as if something awful might happen: 0 = Not at all Total PALLAVI-7 score (0-4 normal; 5-9 mild; 10-14 moderate; 15-21 severe): 0 Source: Developed by Drs. Lawrence Hightower, Virginia Martinez, Calin Kellogg and colleagues, with an educational ganesh from [employer]. PALLAVI-7 Assessment Billing PALLAVI-7 Assessment Tool: PALLAVI-7 Assessment 09251 Physical exam (Primary Care) Vital Signs: Last Vital Signs Temp 97.2 F 02/22/25 13:06 Pulse 83 02/22/25 13:06 Resp 12 02/22/25 13:06 BP 105/66 02/22/25 13:06 Pulse Ox 99 02/22/25 13:06 Oxygen Delivery Method Room Air 02/22/25 13:06 BMI result Body Mass Index 25.6 Tobacco/Smoking Status: Tobacco use Status Tobacco use date assessed 02/22/25 02/22/25 13:04 Patient Tobacco Use Status Never used Tobacco 02/22/25 13:04 Tobacco use type Smokeless Tobacco 02/22/25 13:04 e-Cigarette/Vaping Use Currently Using 02/22/25 13:04 Depression Screening Interpretation: Negative Thrive Assessment: Date of Thrive Assessment Date Thrive assessed 05/02/24 02/22/25 13:04 Currently or been in a relationship where the following occur: No concerns reported Coding Level of Care Code Est Pt Level 4 (98085) Complex EM visit Add On G2211 Diagnoses Irritable bowel syndrome with both constipation and diarrhea K58.2 Irritable bowel syndrome type: with both diarrhea and constipation Hx of colonoscopy Z98.890 Additional Codes PHQ-9 - 53565 - PHQ-9 Billing: Yes ([id number]) PALLAVI-7 Assessment Billing - PALLAVI-7 Assessment Tool: PALLAVI-7 Assessment 03811 ([id number]) Assessment & Plan Assessment & Plan (1) IBS (irritable bowel syndrome): Code(s): K58.9 - Irritable bowel syndrome, unspecified Category: Medical Qualifiers: Irritable bowel syndrome type: with both diarrhea and constipation Qualified Code(s): K58.2 - Mixed irritable bowel syndrome (2) Hx of colonoscopy: Onset Date: ~2022 Comment: 09/2022 Code(s): Z98.890 - Other specified postprocedural states Category: Surgical Plan . Orders: Referrals Gastroenterology Referral K58.2 - Mixed irritable bowel syndrome, Z98.890 - Other specified postprocedural states Medications: New amitriptyline 10 mg PO BEDTIME 30 tabs 1RF
[2025-02-22 13:06] VITALS: BP 105/66; PULSE 83; RESP 12; TEMP 36.2; O2SAT 99; BMI 25.6
--- OUTSIDE RECORDS SUMMARY | 2025-02-22 15:40 | XMS_ITS | Clinical Summary ---
Author Organization [facility] Address [address] [place] [address] Phone Care Team Providers Care Cd Technician Name Role Phone Unavailable Primary Care Provider [...] of 2 - 13+ 2-dose series) 2002 HPV Vaccines (1 - 3-dose SCDM series) 2016 Influenza Vaccines (#1) 2024 COVID-19 Vaccine (2024- season) 2024 IPV Vaccines Completed 12/25/1994, 07/1990, 1989, Additional [...]
--- OUTSIDE RECORDS SUMMARY | 2025-02-22 15:40 | XMS_ITS | Clinical Summary ---
Author Organization [facility] Address [address] [place] [address] Care Team Providers Care Sr Vice President Name Role Phone Unavailable Primary Care Provider Unavailabl e Allergies No known active allergies Medications No known medications Social History Tobacco Use Types Packs/Day Years Used Date Smoking Tobacco: Never Assessed Sex and Gender Information Value Date Recorded Sex Assigned at Not on file Legal Sex Male 2:32 PM EST Gender Identity Not on file Sexual Orientation Not on file Last Filed Vital Signs Vital Sign Reading Time Taken Comments Blood Pressure 123/84 04/29/2021 2:44 PM EST Pulse 85 04/29/2021 2:44 PM EST Temperature 36.9 C (98.5 F) 04/29/2021 2:44 PM EST Respiratory Rate - - Oxygen Saturation 98% [...] - 19+ 3-dose series) 2008 Influenza Vaccine 11/18/2024 COVID-19 Vaccine (2023-2 5 season) 2024 HPV Vaccines (No Doses Required) Completed Pneumococcal Vaccine: Pediat edvin (0-5 Years) and At-Risk Patients (6 to 49 Years) Aged Out No longer eligible b ased on patient's age to complete this topic Insurance [place] [address] [facility]
--- OUTSIDE RECORDS SUMMARY | 2025-02-22 15:40 | XMS_ITS | Encounter Summary ---
Author Organization [facility] Address [address] [place] [phone] Phone Care Team Providers Care Home Aid Name Role Phone Gagan Patel MD Primary Care Provider [phone] Encounter Details Date Type Department Care Team (Late st Contact Info) Description 06/18/2017 Conversion Encounter [facility] [place] [address] [place] [address] Gagan Patel MD [address] [place] [address] Social History Tobacco Use Types Packs/Day Years [...] on filedocumented in this encounter Care Teams Home Aid Relationship Specialty Start Date End Date Gagan Patel MD [address] [place] [address] PCP - General 10/26/07 02/07/20 documented as of this encounter
--- OUTSIDE RECORDS SUMMARY | 2025-02-22 15:40 | XMS_ITS ---
Author Name [facility] Organization Unknown Encounters Encounter Type Encounter Reason Primary Diagnosis Location Date Ambulatory Contact with and (suspected) exposure to covid-19 [facility] 04/29/2021 Care Team Organization Name Specialty Phone Email Start Date End Da te [facility] 04/29/2021 12/07/2023 [facility] 04/29/2021 04/29/2021
== END 2025-02-22 13:46 | disposition home or self-care (01) ==
LOC: HO.HMCFM 12:57
PROVIDERS: PCP Family Medicine; Visit Provider Nurse Practitioner Family
DX: K58.2 Mixed irritable bowel syndrome (principal); Z98.890 Other specified postprocedural states

== ENCOUNTER → 2025-02-22 12:56 | Outpatient (BNVA) | payer OTHER, SELFPAY | PROVIDERS: PCP Family Medicine; Visit Provider Nurse Practitioner Family | DX: K58.2 Mixed irritable bowel syndrome (principal); Z13.31 Encounter for screening for depression; Z13.39 Encounter for screening examination for other mental health and behavioral disorders | CPT/HCPCS: 96127; 99212 ==

== ENCOUNTER 2025-04-06 14:51 | Outpatient (AMB) | payer OTHER, SELFPAY ==
--- NOTE | 2025-04-06 15:09 | A.OFFVIS_ITS ---
Vital Signs 04/06/25 15:16 Height 5 ft 10 in Weight 175 lb BMI 25.1 BP 154/86 H Blood Pressure Location Rt brachial Position Sitting Pulse 90 Pulse Source Pulse Oximeter Pulse Oximetry (%) 97 Oxygen Delivery Method Room Air Intake Visit Reasons: Irritable bowel syndrome Intake Note: Patient complex follow up for IBS/Gloria former pt erickson was 10/[address] Gary on 09/2022 with 5-7 yrs recall. Patient cc: C/O frequent IBS episodes - typically loose stools and intermittent diarrhea. Pt also reports intermittent GERD + generalized abd pain. He has been taking miralax and attempting dietary adjustments to help control sx without much relief. 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 Referred by PCP for further evaluation of IBS. He has a long-standing history of stool urgency, which has worsened with increased frequency since his colonoscopy in September 2022. These symptoms significantly disrupt his daily life, particularly his morning routine, and he reports needing to plan routes based on bathroom availability. He experiences occasional, diffuse abdominal pain that is relieved after a bowel movement. His stool consistency varies but is most often loose, ranging across [place] stool chart types 4 through 7. For the past 4-6 months, he has been taking soluble fiber, which has helped his stools become more formed. He was prescribed amitriptyline by his PCP but dislikes its side effects and takes it only for severe flare-ups. His last colonoscopy in September 2022, performed for hemorrhoids , was normal and complete with a good preparation. Findings included internal hemorrhoids, one of which was banded, and one or two hyperplastic polyps in the rectum. He occasionally sees bright red blood on toilet paper when wiping. The patient reports heartburn if he has a late lunch after skipping breakfast, but he does not take medication for it. He denies nausea, vomiting, or dysphagia. There is a history from of a possible celiac-type disease that was never formally diagnosed. He reports recent weight gain and his appetite is unaffected. Past medical history is notable for an evaluation by a flow match sofa cutter in August 2023 for an irregular heart rhythm, and he was cleared from a cardiac standpoint after an EKG and stress test. He takes a multivitamin and fiber but no other regular kvtm-hpe-[id number] medications. Patient denies: fever/chills, n/v, appetite changes, regurgitation, dysphasia, unintentional wt loss. Social hx: -ETOH use, Reports consuming 1-3 canned seltzers a few times per week. -denies recreational drug use -nightly vaping - family hx as below -denies personal hx of CA -denies significant cardiopulmonary history -tolerated anesthesia in the past without difficulty. [facility] Medical History (Updated 04/07/25 @ 08:07 by Tia Aguero CNP) Change in stool Bursitis of left shoulder Inguinal hernia Surgical History Hx of colonoscopy (~2022) Hx of oral surgery Hx of right inguinal hernia repair Status post rhinoplasty Family History Unknown No family history of colorectal cancer Social History Household Members: Spouse and Children Household Members Other:: , 2 sons Housing: House Patient Tobacco Use Status: Never used Tobacco Tobacco use type: Smokeless Tobacco e-Cigarette/Vaping Use: Currently Using Second Hand Smoke Exposure: No service: Yes Current occupational status: employed 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 Current occupational exposures/hazards: No Cognitive needs: No Hearing needs: No Vision needs: No Review of Systems Const Reports as per HPI ENT Reports as per HPI Card Reports as per HPI Resp Reports as per HPI GI Reports as per HPI Reports as per HPI Physical Exam Vital Signs: Last Vital Signs Pulse 90 04/06/25 15:16 BP 154/86 H 04/06/25 15:16 Pulse Ox 97 04/06/25 15:16 Oxygen Delivery Method Room Air 04/06/25 15:16 BMI result Body Mass Index 25.1 Const General: healthy appearing, no acute distress and well developed Nutritional Appearance: average body habitus Orientation/consciousness: patient oriented x3 HEENT Head: Yes normal to inspection, Yes normocephalic and Yes atraumatic Face and sinus: Yes normal facial exam Eyes General: appearance normal, both eyes and all related structures Neck Neck: Yes normal visual inspection Resp Effort & Inspection: normal respiratory effort, able to speak in complete sentences, no tracheal deviation and symmetric chest movement Cardio Jugular venous distension: no JVD GI Inspection: Yes normal to inspection and No distended Palpation (GI): Soft to palpation, not firm, nontender and No hepatosplenomegaly present Auscultation: normal bowel sounds Rectal Exam - Male: Yes deferred (per pt request) Neuro General: patient oriented x3 Gait exam (Neuro): Normal gait present Psych Appearance: grossly normal Mental Status: mental status grossly normal Speech and movement: Normal speech and movement present Affect: normal affect Attitude: cooperative Thought process: Normal thought process present Thought content: Normal thought content present Insight: Good insight present (Psych) Judgement: Good judgement present (Psych) Assessment & Plan Assessment & Plan (1) IBS (irritable bowel syndrome): Code(s): K58.9 - Irritable bowel syndrome, unspecified Category: Medical Qualifiers: Irritable bowel syndrome type: with both diarrhea and constipation Qualified Code(s): K58.2 - Mixed irritable bowel syndrome Plan: The patient's symptoms of increased stool frequency and urgency are consistent with IBS, though the recent change warrants further investigation despite a recent normal colonoscopy. - To rule out other etiologies, additional labs will be ordered to check for gluten intolerance (celiac disease) and anemia. - Stool testing will be performed to assess for inflammation, infection, parasites, and occult blood. - The patient will continue taking soluble fiber and daily yogurt, as these have provided some benefit. - Small Intestinal Bacterial Overgrowth (SIBO) remains a consideration; however, a trial of antibiotics will be deferred until after the current workup is complete. - A follow-up visit is scheduled in 4 weeks to review the test results and decide on further management. (2) Hemorrhoids: Comment: 10/09/22 colonoscopy complete with adequate prep-5-8 mm HP X 2 (rectum), medium sized internal hemorrhoids, grade I. Otherwise normal colonoscopy Code(s): K64.9 - Unspecified hemorrhoids Category: Medical Qualifiers: Hemorrhoid type: first degree Qualified Code(s): K64.0 - First degree hemorrhoids Plan: The patient's report of occasional bright red blood when wiping is likely attributable to internal hemorrhoids or anal fissures from frequent bowel movements. - A stool test will be conducted to check for any non-visible blood. - No further intervention is planned at this time. Plan Follow-up 4 weeks or sooner as needed Time: I spent a total of 35 minutes on the date of encounter which includes: Preparing to see the patient (reviewed previous documentation, test results and medical history) Performing a medically appropriate exam and/or evaluation Ordering medications, tests, and procedures Documenting clinical information in the health record Orders: Orders Transglutaminase IgA 04/06/25 R19.5 - Other fecal abnormalities Ova and Parasite 04/06/25 R19.5 - Other fecal abnormalities AMB Stool Occult Bld x3 gFOBT 04/06/25 R19.5 - Other fecal abnormalities Calprotectin, Fecal 04/06/25 R19.5 - Other fecal abnormalities C Reactive Protein 04/06/25 K58.2 - Mixed irritable bowel syndrome GI Panel 04/06/25 R19.5 - Other fecal abnormalities CDiff Gene PCR 04/06/25 R19.5 - Other fecal abnormalities Coding Level of Care Code New Pt New Pt Level 3 (88393) Patient Type New Diagnoses Irritable bowel syndrome with both constipation and diarrhea K58.2 Irritable bowel syndrome type: with both diarrhea and constipation Grade I hemorrhoids K64.0 Hemorrhoid type: first degree
[2025-04-06 15:16] VITALS: BP 154/86; PULSE 90; O2SAT 97; BMI 25.1
--- NOTE | 2025-04-06 15:49 | MHC.OFFVIS ---
Vital Signs 04/06/25 15:16 Height 5 ft 10 in Weight 175 lb BMI 25.1 BP 154/86 H Blood Pressure Location Rt brachial Position Sitting Pulse 90 Pulse Source Pulse Oximeter Pulse Oximetry (%) 97 Oxygen Delivery Method Room Air Intake Visit Reasons: Irritable bowel syndrome Allergies No Known Allergies Allergy (Verified 04/06/25 15:09) Medication List - Last Reconciled 04/06/25 by Tia Aguero CNP albuterol sulfate 90 mcg/actuation 2 puffs inhalation Q6H PRN amitriptyline 10 mg PO BEDTIME bupropion HCl SR 200 mg PO QAM fluticasone propionate 50 mcg/actuation (Flonase Allergy Relief) 1 spray intranasal DAILY PRN multivitamin 1 tab PO DAILY psyllium husk 0.4 grams PO DAILY tadalafil (Cialis) 10 mg PO DAILY PRN HPI HPI Irritable bowel syndrome: Details: Patient is a 34-year-old male with PMH of []. Referred by PCP for further evaluation of IBS. increased in frequnecy and urgeny since 06-12 colo bright red with wiping occ generalized ab pain, relieved after defecating 4- 6 months since adding fiber, more formed. pyrosis Patient denies: fever/chills, n/v, appetite changes, regurgitation, dysphasia, unintentional wt loss. Social hx: -ETOH use seltzer 1-3/week -denies recreational drug use -nightly vaping - family hx as below -denies personal hx of CA -denies significant cardiopulmonary history -tolerated anesthesia in the past without difficulty. ON LICENSE OF [facility] Medical History (Updated 04/06/25 @ 16:04 by Tia Aguero CNP) Change in stool Bursitis of left shoulder Inguinal hernia Surgical History Hx of colonoscopy (~2022) Hx of oral surgery Hx of right inguinal hernia repair Status post rhinoplasty Family History Unknown No family history of colorectal cancer Social History Household Members: Spouse and Children Household Members Other:: , 2 sons Housing: House Patient Tobacco Use Status: Never used Tobacco Tobacco use type: Smokeless Tobacco e-Cigarette/Vaping Use: Currently Using Second Hand Smoke Exposure: No service: Yes Current occupational status: employed 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 Current occupational exposures/hazards: No Cognitive needs: No Hearing needs: No Vision needs: No Physical Exam Vital Signs: Last Vital Signs Pulse 90 04/06/25 15:16 BP 154/86 H 04/06/25 15:16 Pulse Ox 97 04/06/25 15:16 Oxygen Delivery Method Room Air 04/06/25 15:16 BMI result Body Mass Index 25.1 Results Reviewed Results Reviewed: Operative Note Date of Service: 10/09/22 Narrative: Operative Information Procedure Description: Colonoscopy Indication: hemorrhoids, rectal bleeding, abn bowel habit Anesthesia: MAC COLONOSCOPY Instrument: Olympus variable stiffness pediatric scope 190L Colonoscopy Monitoring: Vital signs and clinical assessment, continuous EKG monitoring, Pulse oximetry, Carbon Dioxide monitoring and blood pressure monitoring were done throughout the procedure. Colon withdrawal time was 22 minutes. Procedure: The patient was placed in the left lateral decubitis position and pre-procedure medications were administered. After a digital rectal examination of the ano-rectum, the video colonoscope was inserted into the rectum and advanced through the colon to the cecum/TI. The colonoscope was slowly withdrawn in a retrograde panoramic fashion and the colon mucosa was carefully examined including a retroflexed view of the rectum. Findings and interventions are described below. Procedure Difficulty: easy Findings: Terminal Ileum- mild erythema, bx taken Cecum:normal, bx taken Ascending Colon: normal, bx taken Transverse Colon -normal Descending Colon:normal Sigmoid Colon: normal Rectum: Retroflexion with medium sized internal hemorrhoids, grade I. One hemorrhoid column was more prominent and I placed one band over it. X 2 sessile polyps in the proximal rectum 5-8 mm removed with cold snare. Random rectum biopsies also taken. Anorectum - normal Colon preparation: Nelson Bowel Preparation Scale Right colon; 2 Transverse colon: 2 Left colon; 2 (0 = Unprepared colon segment with mucosa not seen due to solid stool that cannot be cleared. 1 = Portion of mucosa of the colon segment seen, but other areas of the colon segment not well seen due to staining, residual stool and/or opaque liquid. 2 = Minor amount of residual staining, small fragments of stool and/or opaque liquid, but mucosa of colon segment seen well. 3 = Entire mucosa of colon segment seen well with no residual staining, small fragments of stool or opaque liquid) Impression and Post Procedure Diagnosis: polyps internal hemorrhoids Plan: High fiber diet leaflet Avoid straining at stool, epsom salts and sitz bath, anusol supps or cream Repeat Colonoscopy in 5-7 years if adenomatous polyps, otherwise colonoscopy at age 45 or earlier if clinically indicated Above findings were reviewed with the patient and relevant handouts were provided if indicated. PATHOLOGY: Collected: 10/09/22 Location: [facility] Received: 10/09/22 Diagnosis A. Terminal ileum, biopsy: Ileal mucosa with no specific change. B. Colon, right, biopsy: Colonic mucosa (2 pieces) with no specific change, and ileal mucosa (1 piece) with no specific change. C. Colon, proximal rectal, polyps: Hyperplastic polyps, two. D. Colon, rectum, biopsy: Colonic mucosa with no specific change. Clinical History Pre-Op Dx: Anal fissure Post-Op Dx: Colon polyps, hemorrhoids Assessment & Plan Assessment & Plan (1) Change in stool: Code(s): R19.5 - Other fecal abnormalities Category: Medical Plan Follow-up [] or sooner as needed Time: I spent a total of [] minutes on the date of encounter which includes: Preparing to see the patient (reviewed previous documentation, test results and medical history) Performing a medically appropriate exam and/or evaluation Ordering medications, tests, and procedures Documenting clinical information in the health record Orders: Orders Transglutaminase IgA Today R19.5 - Other fecal abnormalities Ova and Parasite Today R19.5 - Other fecal abnormalities AMB Stool Occult Bld x3 gFOBT Today R19.5 - Other fecal abnormalities Calprotectin, Fecal Today R19.5 - Other fecal abnormalities C Reactive Protein Today K58.2 - Mixed irritable bowel syndrome GI Panel Today R19.5 - Other fecal abnormalities CDiff Gene PCR Today R19.5 - Other fecal abnormalities Coding Patient Type New Diagnoses Change in stool R19.5
--- OUTSIDE RECORDS SUMMARY | 2025-04-06 18:56 | XMS_ITS | Clinical Summary ---
Author Organization [facility] Address [address] [place] [address] Care Team Providers Care Polymer Tester Name Role Phone Unavailable Primary Care Provider [...] series) 2008 Influenza Vaccine 11/18/2024 COVID-19 Vaccine ( - 2024-2 6 season) 2024 HPV Vaccines (No Doses Required) Completed Pneumococcal Vaccine: Pediat edvin (0-5 Years) and At-Risk Patients (6 to 49 Years) Aged Out No longer eligible b ased on patient's age to complete this [place] [address] [facility]
--- OUTSIDE RECORDS SUMMARY | 2025-04-06 18:56 | XMS_ITS | Clinical Summary ---
Author Organization [facility] Address [address] [place] [address] Phone Care Team Providers Care Rn Discharge Name Role Phone Unavailable Primary Care Provider [...]
--- OUTSIDE RECORDS SUMMARY | 2025-04-06 18:56 | XMS_ITS | Encounter Summary ---
Author Organization [facility] Address [address] [place] [phone] Phone Care Team Providers Care Concierge Manager Name Role Phone Gagan Patel MD Primary Care Provider [phone] Encounter Details Date Type Department Care Team (Late st Contact Info) Description 06/18/2017 Conversion Encounter [facility] [place] [address] [place] [address] Gagan Patel MD [address] [place] [address] Social History Tobacco Use Types Packs/Day Years [...] on filedocumented in this encounter Care Teams Concierge Manager Relationship Specialty Start Date End Date Gagan Patel MD [address] [place] [address] PCP - General 10/26/07 02/07/20 documented as of this encounter
== END 2025-04-06 16:15 | disposition home or self-care (01) ==
PROVIDERS: PCP Family Medicine; Visit Provider Nurse Practitioner Family
DX: K58.2 Mixed irritable bowel syndrome (principal); K64.0 First degree hemorrhoids
CPT/HCPCS: 99203

== ENCOUNTER → 2025-04-06 14:51 | Outpatient (BNVA) | payer OTHER, SELFPAY | PROVIDERS: PCP Family Medicine; Visit Provider Nurse Practitioner Family | DX: K58.2 Mixed irritable bowel syndrome (principal); K64.0 First degree hemorrhoids; R19.7 Diarrhea, unspecified; R19.5 Other fecal abnormalities | CPT/HCPCS: 99202 ==